=== PATIENT | female | born 1950 | race Caucasian/White ===

== ENCOUNTER → 2016-05-12 | Outpatient (CLI) | payer MEDICARE, OTHER | LOC: CLAB 13:51 | PROVIDERS: ATTEND Internal Medicine | DX: J47.9 Bronchiectasis, uncomplicated (principal) | CPT/HCPCS: 87015; 87070; 87077; 87116; 87186; 87205; 87206 ==

== ENCOUNTER → 2017-04-16 | Outpatient (CLI) | payer MEDICARE, OTHER ==
[~2017-04-16] MED LIST: ALEN1TAB48 PO; AMLO5TAB2 PO; ASPI81TA23 PO; BECL80AE3 INH; CALC1TAB87 PO; IPRA0.02 NEB; LEVO100T5 PO; LOSA50TA PO; METF500T PO; NITR1CAP37 PO; vitamin d2 PO
[2017-04-16 15:58] LABS: BACTERIA, URINE MOD /hpf; BILIRUBIN, URINE NEG (NEG); BLOOD, URINE TRACE (NEG); GLUCOSE,URINE NEG (NEG); HYALINE CAST, URINE 1 /lpf (RARE); KETONE, URINE NEG (NEG); NITRITE,URINE POS (NEG); URINE COLOR YELLOW (YELLW/STRAW); URINE LEUKOCYTE ESTERASE LARGE (NEG)
== END ==
LOC: CLAB 14:30
PROVIDERS: ATTEND Obstetrics & Gynecology Gynecology
DX: N39.0 Urinary tract infection, site not specified (principal); B96.4 Proteus (mirabilis) (morganii) as the cause of diseases classified elsewhere
CPT/HCPCS: 81001; 87077; 87086; 87186

== ENCOUNTER → 2017-08-14 | Outpatient (CLI) | payer MEDICARE, OTHER ==
[~2017-08-14] MED LIST changes: -NITR1CAP37 PO
== END ==
LOC: OLAB 10:37
PROVIDERS: ATTEND Internal Medicine
DX: J44.9 Chronic obstructive pulmonary disease, unspecified (principal); B96.5 Pseudomonas (aeruginosa) (mallei) (pseudomallei) as the cause of diseases classified elsewhere
CPT/HCPCS: 87015; 87070; 87077; 87116; 87186; 87205; 87206

== ENCOUNTER → 2017-08-19 | Outpatient (CLI) | payer MEDICARE, OTHER ==
--- NOTE | 2017-08-21 09:50 | RSPPFT ---
DATE OF PROCEDURE: 08/19/17 COMMENTS: VOLUMES DYNAMIC: FVC moderately reduced; FEV1 severely reduced. STATIC: FRC, RV and TLC normal. FLOWS: FEV1% moderately reduced; FEF 25-75 severely reduced. DIFFUSION: Mildly reduced. FLOW VOLUME LOOP: Pattern of variable intrathoracic airways obstruction. IMPRESSION: Moderately severe obstructive ventilatory defect with no significant hyperinflation and a mild reduction in diffusion. Airways resistance is significantly increased. There is significant improvement post-bronchodilator.
== END ==
LOC: HRSP 12:01
PROVIDERS: ATTEND Internal Medicine
DX: J44.9 Chronic obstructive pulmonary disease, unspecified (principal)
CPT/HCPCS: 94060; 94618; 94726; 94729

== ENCOUNTER 2018-03-08 18:35 | Inpatient (IN) ==
[2018-03-08] MEDS ORDERED: Acetaminophen 325 MG Tablet PO ONE (20:38)
[2018-03-08] MEDS ORDERED: Sodium Chlor 0.9% Inj 500 ML IV.SIG ONE (20:38)
[2018-03-08] MEDS ORDERED: Vancomycin Inj 1,000 MG in Sodium Chlor 0.9% Inj 250 ML IV.SIG ONE (20:38)
--- NOTE | 2018-03-08 20:48 | ED ---
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 She reports that she was referred to Dr. Jackson for evaluation when after being chronically placed on ciprofloxacin she continued to have exacerbations. She reports that a PICC line was placed to approximate 3 weeks ago and she has been on cefepime for the last 2 weeks. She reports that today she developed a fever at home with a T-max of 102.9. The patient reports that yesterday she did have increased shortness of breath when she went to congregation and was exposed to a cologne. She reports that today she does not have any increasing shortness of breath. She reports that she is on 2 L nasal cannula O2 as needed in the daytime and continuously at night. She denies having any nausea, vomiting, or diarrhea. She reports that her last bowel movement was yesterday. She reports that she has had some generalized abdominal discomfort, however she reports that she has been taking probiotics which have helped. The patient reports that her primary care physician is Dr. Borrero. On review of systems otherwise, the patient denies having any recent increased productivity to her cough, neck pain, chest pain, urinary symptoms, or neurologic symptoms. Related Data Home Medications Medication Instructions Recorded Confirmed alendronate [Fosamax] 70 mg PO QWEEK 02/19/18 03/08/18 amlodipine 5 mg PO DAILY 02/19/18 03/08/18 aspirin [Aspir-81] 81 mg PO DAILY 02/19/18 03/08/18 ciprofloxacin HCl [Cipro] 500 mg PO BID 02/19/18 03/08/18 gwrfexlcwyy-svrcsegxa-bppsrqsf 1 inh INHALATION DAILY 02/19/18 03/08/18 [Trelegy Ellipta] ipratropium-albuterol 3 ml INHALATION Q8H 02/19/18 03/08/18 ipratropium-albuterol [Combivent 1 puff INHALATION Q6H 02/19/18 03/08/18 Respimat] levothyroxine 100 mcg PO DAILY 02/19/18 03/08/18 losartan 50 mg PO DAILY 02/19/18 03/08/18 metformin 500 mg PO BID 02/19/18 03/08/18 cefepime 2 g IV Q12H 03/08/18 03/08/18 ergocalciferol (vitamin D2) 50,000 unit PO QWEEK 03/08/18 03/08/18 [Vitamin D2] Allergies Allergy/AdvReac Type Severity Reaction Status Date / Time No Known Allergies Allergy Verified 03/08/18 18:47 Review of Systems ROS: all other systems reviewed are negative [facility] Medical History Medical History Asthma (Acute) Bronchiectasis (Acute) Dizziness (Acute) History of blood product transfusion (Acute) Hx of osteopenia (Acute) Hypothyroidism (Acute) Surgical History Surgical History History of total left knee replacement (Acute) History of total right knee replacement (Acute) Hx of tubal ligation (Acute) Social History Social History Second Hand Smoke Exposure: No Smoking Status: Former smoker How Often Do You Have a Drink Containing Alcohol: Never Recent Travel in [facility] within the Last 8 Weeks: No Recent Out of Country Travel within the Last 8 Weeks: No Immunization History Tetanus Immunization: >5 Years Exam Const General: cooperative, no acute distress and well developed Nutritional Appearance: well nourished Orientation: alert, awake and oriented x3 HENMT Head: normocephalic and atraumatic Nose: no nasal discharge and no epistaxis Mouth: moist mucous membranes Throat: posterior oropharynx normal and uvula midline Eyes Sclera: normal sclerae Pupils: PERRL Neck Neck: no meningeal signs, trachea midline and no JVD Resp Effort & Inspection: no use of accessory muscles and other (The patient has an occasional productive sounding cough on examination.) Auscultation: no crackles, rhonchi (Patient has scattered rhonchi that clear with coughing.) and wheezes (Audible posteriorly in bilateral lung abreu.) Cardio Rate: regular rate Rhythm: regular rhythm Heart Sounds: no murmurs GI Inspection: non-distended Palpation: soft, no hepatosplenomegaly, no guarding, not rigid and nontender Auscultation: normal bowel sounds Back/Spine/Pelvis Back: no CVA tenderness Cervical Spine: No cervical spinal tenderness Thoracic/Lumbar Spine: No thoracic spinal tenderness and No lumbar spinal tenderness Skin General: dry skin (warm) Neuro General: alert, awake, oriented x3 and other (Grossly nonfocal.) Speech: speech normal Motor: no movement abnormalities noted Extrem General: normal to inspection (2+ pulses in all 4 extremities. The patient has a PICC line in place in the right upper extremity that appears to be in good repair with a clean, dry, and intact bandage in place.), no calf tenderness, no clubbing, no cyanosis and no edema Psych Mood: congruent mood Affect: normal affect Judgment: judgment good Course Initial Documented Vital Signs Temperature 100.3 F H 03/08/18 18:44 Pulse Rate 101 H 03/08/18 18:44 Respiratory Rate 20 03/08/18 18:44 Blood Pressure 146/68 H 03/08/18 18:44 Pulse Oximetry 96 03/08/18 18:44 Last Documented Vital Signs Temperature 100.3 F H 03/08/18 18:44 Pulse Rate 96 H 03/08/18 21:05 Respiratory Rate 16 03/08/18 20:32 Blood Pressure 194/85 H 03/08/18 20:32 Pulse Oximetry 96 03/08/18 21:05 Medical Decision Making MDM Narrative Medical decision making narrative: During the course of the patient's emergency department visit, the patient's history, examination, and differential diagnosis were reviewed with the patient. The patient was placed on a patrol man with oximetry and frequent blood pressure monitoring. The patient had IV access obtained and blood work sent for analysis. A diagnostic evaluation was started regarding the patient's febrile illness with chronic bronchiectasis and infection with Pseudomonas currently under treatment with a PICC line in place, on cefepime and ciprofloxacin 500 mg twice a day. Blood cultures x2 have been ordered, lactic acid has been sent for analysis and workup of possible sepsis. The patient was initially provided NS 500 mL bolus x1, DuoNeb x1, Tylenol 650 p.o. x1 for fever. Along with the antibiotic regimen that was previously started, vancomycin was added to the regimen due to concern for possible sepsis. The patient's laboratory studies are remarkable for a white count that is increased since last check up to 12, hemoglobin 11, platelets 114 with 75.2 neutrophils, 11.7 monocytes. PT PTT within normal limits, chemistry is remarkable for sodium 135, GFR 67, glucose 109, cardiac enzymes within normal limits, total protein 8.3, lipase within normal limits, lactic acid 1.2. The patient's chest x-ray revealed bronchiectasis and a left basilar airspace disease that is suspected by the radiologist. The patient had added to her current regimen of antibiotic, azithromycin, 500 mg IV. The patient will be admitted to the hospital for failed outpatient management, recurrent fevers and infiltrates on chest x-ray. A consultation with her infectious disease physician will be placed. The patient's case including history, pertinent physical examination findings, and laboratory studies were discussed with Dr. Tran. It was agreed that the patient would be admitted to the hospitalist service. The patient's results were discussed with the patient, including the plan of care. I explained that further testing and/ or monitoring is indicated based on the patient's history, examination, and/ or laboratory findings. Therefore, I recommended admission for additional evaluation. The patient expressed understanding and was agreeable with this plan. The patient was admitted to the hospital in guarded condition and sent to a bed under the care of the [facility] service. Medical Screen Exam Complete: Yes Emergency Medical Condition: Yes Differential Diagnosis Differential Diagnosis: Pneumonia, versus line related sepsis, versus pyelonephritis, versus C. difficile colitis Medical Records Medical records reviewed: Yes I reviewed the patient's medical records. Lab Data Lab results reviewed: Yes I reviewed the patient's lab results. Result diagrams: 03/08/18 20:45 03/08/18 20:45 Lab Results 03/08/18 03/08/18 03/08/18 Range/Units 20:45 20:45 20:45 WBC 12.0 H (4.0-11.0) th/mm3 RBC 3.63 L (4.00-5.30) mil/mm3 Hgb 11.0 L (11.6-15.3) gm/dL Hct 30.9 L (35.0-46.0) % MCV 85.1 (80.0-100.0) fL MCH 30.3 (27.0-34.0) pg MCHC 35.6 (32.0-36.0) % RDW 15.5 (11.6-17.2) % Plt Count 414 (150-450) th/mm3 MPV 7.9 (7.0-11.0) fL Neut % (Auto) 75.2 H (16.0-70.0) % Lymph % (Auto) 11.6 (9.0-44.0) % Dougherty % (Auto) 11.7 H (0.0-8.0) % Eos % (Auto) 0.5 (0.0-4.0) % Baso % (Auto) 1.0 (0.0-2.0) % Neut # (Auto) 9.0 H (1.8-7.7) th/mm3 Lymph # (Auto) 1.4 (1.0-4.8) th/mm3 Dougherty # (Auto) 1.4 H (0.0-0.9) th/mm3 Eos # (Auto) 0.1 (0.0-0.4) th/mm3 Baso # (Auto) 0.1 (0.0-0.2) th/mm3 WBC Differential . Differential Comment Auto diff final PT 10.8 (9.8-11.6) sec INR 1.1 Ratio APTT 29.4 (23.4-31.7) sec Sodium 135 L (136-145) meq/L Potassium 3.8 (3.5-5.1) meq/L Chloride 99 (98-107) meq/L Carbon Dioxide 27.0 (21.0-32.0) meq/L Anion Gap 9 (5-15) meq/L BUN 11 (7-18) mg/dL Creatinine 0.84 (0.50-1.00) mg/dL Estimated GFR 67 L (>89) mL/min Random Glucose 109 H (74-106) mg/dL Lactic Acid (0.4-2.0) mmol/L Calcium 8.9 (8.5-10.1) mg/dL Magnesium 2.0 (1.5-2.5) mg/dL Total Bilirubin 0.3 (0.2-1.0) mg/dL AST 28 (15-37) U/L ALT 30 (10-53) U/L Alkaline Phosphatase 81 (45-117) U/L Total Creatine Kinase 68 (26-192) U/L Troponin I Less than 0.02 L (0.02-0.05) ng/mL Total Protein 8.3 H (6.4-8.2) g/dL Albumin 3.6 (3.4-5.0) g/dL Lipase 144 (73-393) U/L 03/08/18 Range/Units 20:45 WBC (4.0-11.0) th/mm3 RBC (4.00-5.30) mil/mm3 Hgb (11.6-15.3) gm/dL Hct (35.0-46.0) % MCV (80.0-100.0) fL MCH (27.0-34.0) pg MCHC (32.0-36.0) % RDW (11.6-17.2) % Plt Count (150-450) th/mm3 MPV (7.0-11.0) fL Neut % (Auto) (16.0-70.0) % Lymph % (Auto) (9.0-44.0) % Dougherty % (Auto) (0.0-8.0) % Eos % (Auto) (0.0-4.0) % Baso % (Auto) (0.0-2.0) % Neut # (Auto) (1.8-7.7) th/mm3 Lymph # (Auto) (1.0-4.8) th/mm3 Dougherty # (Auto) (0.0-0.9) th/mm3 Eos # (Auto) (0.0-0.4) th/mm3 Baso # (Auto) (0.0-0.2) th/mm3 WBC Differential Differential Comment PT (9.8-11.6) sec INR Ratio APTT (23.4-31.7) sec Sodium (136-145) meq/L Potassium (3.5-5.1) meq/L Chloride (98-107) meq/L Carbon Dioxide (21.0-32.0) meq/L Anion Gap (5-15) meq/L BUN (7-18) mg/dL Creatinine (0.50-1.00) mg/dL Estimated GFR (>89) mL/min Random Glucose (74-106) mg/dL Lactic Acid 1.2 (0.4-2.0) mmol/L Calcium (8.5-10.1) mg/dL Magnesium (1.5-2.5) mg/dL Total Bilirubin (0.2-1.0) mg/dL AST (15-37) U/L ALT (10-53) U/L Alkaline Phosphatase (45-117) U/L Total Creatine Kinase (26-192) U/L Troponin I (0.02-0.05) ng/mL Total Protein (6.4-8.2) g/dL Albumin (3.4-5.0) g/dL Lipase (73-393) U/L Imaging Data Radiologist's impression: Chest X-Ray 03/08/18 20:37 CONCLUSION: Bronchiectasis and left basilar airspace disease suspected. ECG Data Attestation: I personally reviewed and interpreted this ECG as follows: Interpretation: The patient had an EKG done on arrival that shows a sinus rhythm with a sinus arrhythmia heart rate of 88, QRS duration is 95 ms, QTC [address] segment elevation. Discharge Plan Discharge Disposition Patient Disposition: 30 Still Patient Discharge Details Diagnosis: Febrile illness, Failure of outpatient treatment, Infiltrate of lung present on chest x-ray Physicians Team ED Provider: Camryn Ramírez Primary Care Provider: Gabriela Brown Rxs /Orders / Referrals /Forms Prescriptions: No Action cefepime 2 gram Recon Soln 2 g IV Q12H RF: 0 ergocalciferol (vitamin D2) [Vitamin D2] 50,000 unit Capsule 50,000 unit PO QWEEK RF: 0 losartan 50 mg Tablet 50 mg PO DAILY RF: 0 metformin 500 mg Tablet 500 mg PO BID RF: 0 ipratropium-albuterol 0.5 mg-3 mg(2.5 mg base)/3 mL Solution For Nebulization 3 ml INHALATION Q8H RF: 0 alendronate [Fosamax] 70 mg Tablet 70 mg PO QWEEK RF: 0 amlodipine 5 mg Tablet 5 mg PO DAILY RF: 0 ciprofloxacin HCl [Cipro] 500 mg Tablet 500 mg PO BID RF: 0 aspirin [Aspir-81] 81 mg Tablet,Delayed Release (Dr/Ec) 81 mg PO DAILY RF: 0 levothyroxine 100 mcg Capsule 100 mcg PO DAILY RF: 0 ipratropium-albuterol [Combivent Respimat] 20-100 mcg/actuation Mist 1 puff INHALATION Q6H RF: 0 [id number]-hfayphthn-wtostpbq [Trelegy Ellipta] 100-62.5-25 mcg Blister With Device 1 inh INHALATION DAILY RF: 0 Discharge Interventions Interventions: Vital Signs Last Done: 03/08/18 20:32 Status ED Status: With Doctor
[2018-03-08 21:12] LABS: Baso # (Auto) 0.1 th/mm3 (0.0-0.2); Eos # (Auto) 0.1 th/mm3 (0.0-0.4); Eos % (Auto) 0.5 % (0.0-4.0); Hematocrit 30.9 % (35.0-46.0); Lymph # (Auto) 1.4 th/mm3 (1.0-4.8); Lymph % (Auto) 11.6 % (9.0-44.0); Mean Corpuscular HGB Conc 35.6 % (32.0-36.0); Mean Corpuscular Hemoglobin 30.3 pg (27.0-34.0); Mean Corpuscular Volume 85.1 fL (80.0-100.0); Mean Platelet Volume 7.9 fL (7.0-11.0); Mono # (Auto) 1.4 th/mm3 (0.0-0.9); Mono % (Auto) 11.7 % (0.0-8.0); Neut % (Auto) 75.2 % (16.0-70.0); Platelet Count 414 th/mm3 (150-450); Red Blood Count 3.63 mil/mm3 (4.00-5.30); Red Cell Distribution Width 15.5 % (11.6-17.2)
--- NOTE | 2018-03-08 21:13 | XR ---
EXAM DATE: 03/08/2018 9:08 PM EST AGE/SEX: 67 years / Female INDICATIONS: Fever, cough, and congestion. CLINICAL DATA: This is the patient's initial encounter. Patient reports that signs and symptoms have been present for 3 weeks and indicates a pain score of 0/10. MEDICAL/SURGICAL HISTORY: . Asthma. Diabetes. Hypertension. Osteoporosis. Hypothyroidism. DVT. COPD. . Arthroscopy. Breast biopsy. COMPARISON: [facility], CT CHEST W/O CONTRAST, 08/17/2017. . FINDINGS: There are remote right-sided rib fractures present. Mild hyperinflation is noted. Cardiomegaly is denae ntified. The patient has a history of bronchiectasis in the lower lobes. There is atelectasis and per ibronchial thickening identified in the left lower lobe as before. There is minimal patchy left basil ar parenchymal infiltrates again noted. Osseous structures are intact. Right PICC line is present and the tip overlies the expected location of the SVC. EKG leads are noted. CONCLUSION: Bronchiectasis and left basilar airspace disease suspected. Electronically signed by: Aidan Edwards MD 03/08/2018 9:11 PM EST
[2018-03-08 21:20] LABS: Activated Partial Thrombo Time 29.4 sec (23.4-31.7); INR 1.1 Ratio; Prothrombin Time 10.8 sec (9.8-11.6)
[2018-03-08 21:27] LABS: Albumin 3.6 g/dL (3.4-5.0); Anion Gap 9 meq/L (5-15); Aspartate Aminotransferase 28 U/L (15-37); Blood Urea Nitrogen 11 mg/dL (7-18); Calcium 8.9 mg/dL (8.5-10.1); Chloride 99 meq/L (98-107); Glomerular Filtration Rate 67 mL/min (>89); Glucose,Random 109 mg/dL (74-106); Lipase 144 U/L (73-393); Potassium 3.8 meq/L (3.5-5.1); Sodium 135 meq/L (136-145)
[2018-03-08 21:28] LABS: Alanine Aminotransferase 30 U/L (10-53)
[2018-03-08 21:31] LABS: Alkaline Phosphatase 81 U/L (45-117); Total Protein 8.3 g/dL (6.4-8.2)
[2018-03-08 21:36] LABS: Creatine Kinase 68 U/L (26-192)
[2018-03-08] MEDS ORDERED: Azithromycin Inj 500 MG in Sodium Chlor 0.9% Inj 250 ML IV.SIG ONE (22:09)
[2018-03-08] MEDS ORDERED: Dextrose 50% in Water 50 ML Vial IV.PUSH PRN (23:20)
[2018-03-08] MEDS ORDERED: Bisacodyl 10 MG Supp RECTAL PRN (23:22)
[2018-03-08] MEDS ORDERED: Acetaminophen 325 MG Tablet PO PRN (23:22)
[2018-03-08] MEDS ORDERED: CEFEPIME 2 GM IV.SIG SCH (23:30)
[2018-03-08] MEDS ORDERED: Non-Formulary Drug (Ipratropium-Albuterol [Combivent Respimat] 1 PUFF) INHALATION SCH (23:30)
--- NOTE | 2018-03-08 23:35 | P.HP ---
History of Present Illness Service: [facility] Primary Care Physician: Gabriela Brown DO History of Present Illness: 67-year-old female with a past medical history significant for Pseudomonas, currently on cefepime and Cipro per infectious disease, hypertension, diabetes mellitus, COPD and hypothyroidism presents to the emergency department for the evaluation of a fever. The patient reports that earlier today she had an oral temperature of 102.9. She states that she has a chronic cough productive of sputum that has been improving as well as baseline shortness of breath that has also been improving. She had a PICC line placed 2 weeks ago at which time cefepime was initiated by her infectious disease physician, Dr. Jackson. The patient denies any chest pain. No abdominal pain. No nausea/vomiting/ diarrhea. No lateralizing signs/symptoms. Inpatient Certification: I certify that the inpatient services were ordered in accordance with Medicare regulations governing the order. This includes certification that hospital inpatient services are reasonable and necessary and in the case of services not specified as inpatient-only under 42 CFR 419.22(n), that they are appropriately provided as inpatient services in accordance to with the 2-midnight benchmark under 43 CFR 412.3(e) Review of Systems All other systems reviewed negative except as stated in HPI PMFSH - History History Provided By: Patient - Medical History Medical History: Medical History (Last Updated 03/08/18 @ 23:28 by Tamiko Tran MD) COPD (chronic obstructive pulmonary disease) Hypertension Pseudomonas aeruginosa infection Asthma Bronchiectasis History of blood product transfusion Hx of osteopenia Hypothyroidism - Surgical History Surgical History: Surgical History (Last Updated 03/08/18 @ 23:28 by Tamiko Tran MD) S/P PICC central line placement History of total left knee replacement History of total right knee replacement Hx of tubal ligation - Family History Family History: Family History (Last Updated 03/08/18 @ 23:28 by Tamiko Tran MD) Other Family history normal - Tobacco History Second Hand Smoke Exposure: No Smoking Status: Former smoker - Alcohol History How Often Do You Have a Drink Containing Alcohol: Never - Travel History Recent Travel in the [place] Within the Last 8 Weeks: No Recent Travel Out of the Country Within the Last 8 Weeks: No - Immunization History Tetanus Immunization: >5 Years Medications and Allergies Allergies Allergy/AdvReac Type Severity Reaction Status Date / Time No Known Allergies Allergy Verified 03/08/18 18:47 Home Medications Medication Instructions Recorded Confirmed Type alendronate [Fosamax] 70 mg PO QWEEK 02/19/18 03/08/18 History amlodipine 5 mg PO DAILY 02/19/18 03/08/18 History aspirin [Aspir-81] 81 mg PO DAILY 02/19/18 03/08/18 History ciprofloxacin HCl [Cipro] 500 mg PO BID 02/19/18 03/08/18 History zcjxtuyuifw-qhfahlnds-sevgradn 1 inh INHALATION DAILY 02/19/18 03/08/18 History [Trelegy Ellipta] ipratropium-albuterol 3 ml INHALATION Q8H 02/19/18 03/08/18 History ipratropium-albuterol [Combivent 1 puff INHALATION Q6H 02/19/18 03/08/18 History Respimat] levothyroxine 100 mcg PO DAILY 02/19/18 03/08/18 History losartan 50 mg PO DAILY 02/19/18 03/08/18 History metformin 500 mg PO BID 02/19/18 03/08/18 History cefepime 2 g IV Q12H 03/08/18 03/08/18 History ergocalciferol (vitamin D2) 50,000 unit PO QWEEK 03/08/18 03/08/18 History [Vitamin D2] Exam Vital signs: Vital Signs 03/08/18 18:44 03/08/18 20:32 03/08/18 20:50 Temperature 100.3 F H Pulse Rate 101 H 104 H 98 H Respiratory Rate 20 16 18 Blood Pressure 146/68 H 194/85 H Pulse Oximetry 96 96 03/08/18 21:05 Temperature Pulse Rate 96 H Respiratory Rate Blood Pressure Pulse Oximetry 96 Intake & Output 03/08/18 03/08/18 03/09/18 06:59 18:59 06:59 Intake Total 750 / 750 Balance 750 / 750 Weight 68.946 kg Intake: IV 750 / 750 NS Inj 500 ML @ Wide Open IV. 500 / 500 SIG BOLUS ONE Rx#:[id number] Vancomycin Inj 1,000 MG In NS 250 / 250 Inj 250 ML @ 250 mls/hr IV.SIG ONCE ONE Rx#:[id number] Narrative: Gen.: No acute distress Head: Normocephalic. Atraumatic. EENT: Pupils equal round and reactive to light. Nose without drainage. Airway intact. Throat without injection. Cardiovascular: Regular rate and rhythm. No murmurs, rubs or gallops. Respiratory: Bilateral wheezes and rhonchi Abdomen: Soft, nontender, nondistended. No peritoneal signs. Musculoskeletal: No gross deformities. No edema. Skin: No obvious rashes or erythema. Neuro: Sensory and motor grossly intact. Cranial nerves II through XII grossly intact. Results - Labs CBC & Chem 7: 03/08/18 20:45 03/08/18 20:45 Labs: Laboratory Results - last 24 hr 03/08/18 03/08/18 03/08/18 20:45 20:45 20:45 WBC 12.0 H RBC 3.63 L Hgb 11.0 L Hct 30.9 L MCV 85.1 MCH 30.3 MCHC 35.6 RDW 15.5 Plt Count 414 MPV 7.9 Neut % (Auto) 75.2 H Lymph % (Auto) 11.6 Miner % (Auto) 11.7 H Eos % (Auto) 0.5 Baso % (Auto) 1.0 Neut # (Auto) 9.0 H Lymph # (Auto) 1.4 Miner # (Auto) 1.4 H Eos # (Auto) 0.1 Baso # (Auto) 0.1 WBC Differential . Differential Comment Auto diff final PT 10.8 INR 1.1 APTT 29.4 Sodium 135 L Potassium 3.8 Chloride 99 Carbon Dioxide 27.0 Anion Gap 9 BUN 11 Creatinine 0.84 Estimated GFR 67 L Random Glucose 109 H Lactic Acid Calcium 8.9 Magnesium 2.0 Total Bilirubin 0.3 AST 28 ALT 30 Alkaline Phosphatase 81 Total Creatine Kinase 68 Troponin I Less than 0.02 L Total Protein 8.3 H Albumin 3.6 Lipase 144 03/08/18 20:45 WBC RBC Hgb Hct MCV MCH MCHC RDW Plt Count MPV Neut % (Auto) Lymph % (Auto) Miner % (Auto) Eos % (Auto) Baso % (Auto) Neut # (Auto) Lymph # (Auto) Miner # (Auto) Eos # (Auto) Baso # (Auto) WBC Differential Differential Comment PT INR APTT Sodium Potassium Chloride Carbon Dioxide Anion Gap BUN Creatinine Estimated GFR Random Glucose Lactic Acid 1.2 Calcium Magnesium Total Bilirubin AST ALT Alkaline Phosphatase Total Creatine Kinase Troponin I Total Protein Albumin Lipase - Imaging Impressions Chest X-Ray 03/08/18 20:37 CONCLUSION: Bronchiectasis and left basilar airspace disease suspected. Caprini VTE Risk Assessment Caprini VTE Risk Assessment: Moderate/High Risk (score >= 2) Caprini Risk Assessment Model: Point Value = 1 Point Value = 2 Point Value = 3 Point Value = 5 Age 41-60 Minor surgery BMI > 25 kg/m2 Swollen legs Varicose veins or History of unexplained or recurrent spontaneous Oral contraceptives or hormone replacement Sepsis (< 1 month) Serious lung disease, including pneumonia (< 1 month) Abnormal pulmonary function Acute myocardial infarction Congestive heart failure (< 1 month) History of inflammatory bowel disease Medical patient at bed rest Age 61-74 Arthroscopic surgery Major open surgery (> 45 min) Laparoscopic surgery (> 45 min) Malignancy Confined to bed (> 72 hours) Immobilizing plaster cast Central venous access Age >= 75 History of VTE Family history of VTE Factor V Leiden Prothrombin [id number] Lupus anticoagulant Anticardiolipin antibodies Elevated serum homocysteine Heparin-induced thrombocytopenia Other congenital or acquired thrombophilia Stroke (< 1 month) Elective arthroplasty Hip, pelvis, or leg fracture Acute spinal cord injury (< 1 month) Prophylaxis Regimen: Total Risk Factor Score Risk Level Prophylaxis Regimen 0-1 Low Early ambulation 2 Moderate Order ONE of the following: *Sequential Compression Device (SCD) *Heparin 5000 units SQ BID 3-4 Higher Order ONE of the following medications: *Heparin 5000 units SQ TID *Enoxaparin/Lovenox 40 mg SQ daily (WT < 150 kg, CrCl > 30 mL/min) *Enoxaparin/Lovenox 30 mg SQ daily (WT < 150 kg, CrCl > 10-29 mL/min) *Enoxaparin/Lovenox 30 mg SQ BID (WT < 150 kg, CrCl > 30 mL/min) AND/OR *Sequential Compression Device (SCD) 5 or more Highest Order ONE of the following medications: *Heparin 5000 units SQ TID (Preferred with Epidurals) *Enoxaparin/Lovenox 40 mg SQ daily (WT < 150 kg, CrCl > 30 mL/min) *Enoxaparin/Lovenox 30 mg SQ daily (WT < 150 kg, CrCl > 10-29 mL/min) *Enoxaparin/Lovenox 30 mg SQ BID (WT < 150 kg, CrCl > 30 mL/min) AND *Sequential Compression Device (SCD) Assessment and Plan - Plan Assessment/plan: 1. Pseudomonal infection/Fever Patient with temperature of 102.9 at home Treated by infectious disease with cefepime times 2 weeks and Cipro Continue cefepime/Cipro Blood cultures pending Infectious disease consulted, appreciate assistance 2. COPD Patient on 2 L nasal cannula at home, continue Continue home inhalers 3. Hypertension/hypothyroidism Continue home medication 4. Diabetes mellitus Holding home metformin Sliding scale insulin Monitor blood glucose FEN Diabetic diet Electrolytes: Monitor and replete as needed Heparin
[2018-03-09] MEDS: Insulin NovoLOG Aspart Correctional Sugar Inj SQ SCH ×5 (03:03→22:18)
[2018-03-09] MEDS: Levothyroxine 100 MCG Tablet PO SCH (05:56)
[2018-03-09] MEDS ORDERED: FLUTICASONE UMECLIDIN VILANTER INH SCH (09:00)
[2018-03-09 09:34] LABS: Baso # (Auto) 0.1 th/mm3 (0.0-0.2); Baso % (Auto) 1.3 % (0.0-2.0); Eos # (Auto) 0.2 th/mm3 (0.0-0.4); Eos % (Auto) 2.5 % (0.0-4.0); Hemoglobin 9.9 gm/dL (11.6-15.3); Lymph # (Auto) 1.2 th/mm3 (1.0-4.8); Mean Corpuscular Hemoglobin 28.3 pg (27.0-34.0); Mean Corpuscular Volume 85.7 fL (80.0-100.0); Mean Platelet Volume 7.5 fL (7.0-11.0); Mono # (Auto) 1.4 th/mm3 (0.0-0.9); Mono % (Auto) 14.5 % (0.0-8.0); Neut # (Auto) 6.8 th/mm3 (1.8-7.7); Neut % (Auto) 69.7 % (16.0-70.0); Platelet Count 380 th/mm3 (150-450); Red Cell Distribution Width 15.5 % (11.6-17.2); White Blood Count 9.7 th/mm3 (4.0-11.0)
[2018-03-09] MEDS: amLODIPine 5 MG Tablet PO SCH (09:48)
[2018-03-09] MEDS: Ciprofloxacin 500 MG Tablet PO SCH ×2 (09:49→22:17)
[2018-03-09] MEDS: Heparin - SQ 10,000 UNITS/ML Vial SQ SCH ×2 (09:50→22:18)
[2018-03-09 10:02] LABS: Anion Gap 8 meq/L (5-15); Blood Urea Nitrogen 9 mg/dL (7-18); Calcium 8.4 mg/dL (8.5-10.1); Carbon Dioxide 26.2 meq/L (21.0-32.0); Chloride 105 meq/L (98-107); Glomerular Filtration Rate Greater Than 89 mL/min (>89); Glucose,Random 96 mg/dL (74-106); Potassium 3.9 meq/L (3.5-5.1); Sodium 139 meq/L (136-145)
[2018-03-09] MEDS: Senna/Docusate Sodium 8.6/50 MG Tablet PO SCH ×2 (11:05→22:19)
--- NOTE | 2018-03-09 11:36 | P.PN ---
Subjective Interval history: Patient seen resting quietly in bed. is at bedside. Reports that she continues to be short of breath but that it is not any worse. No fever or chills. No nausea vomiting or diarrhea. Confirms chronic home O2. She tells me that she was doing okay on her antibiotic treatment but that she attempted to go to [employer] last week and had an immediate reaction to strong perfumes forcing her to go home. Denies any inflammation or drainage at PICC site. Does report that it is occasionally uncomfortable. Physical Exam Vital signs: Vital Signs 03/08/18 18:44 03/08/18 20:32 03/08/18 20:50 Temperature 100.3 F H Pulse Rate 101 H 104 H 98 H Respiratory Rate 20 16 18 Blood Pressure 146/68 H 194/85 H Pulse Oximetry 96 96 03/08/18 21:05 03/08/18 23:22 03/08/18 23:32 Temperature 98.5 F Pulse Rate 96 H 85 Respiratory Rate 18 Blood Pressure 128/69 Pulse Oximetry 96 96 03/09/18 01:04 03/09/18 03:54 03/09/18 04:00 Temperature 98.2 F 100.2 F H 98.3 F Pulse Rate 81 91 H 90 Respiratory Rate 19 17 19 Blood Pressure 133/64 127/61 129/62 Pulse Oximetry 96 94 L 97 03/09/18 08:00 03/09/18 08:04 Temperature 97.8 F Pulse Rate 81 82 Respiratory Rate 18 16 Blood Pressure 126/77 Pulse Oximetry 93 L Intake & Output 03/08/18 03/09/18 03/09/18 18:59 06:59 18:59 Intake Total 1100 / 1100 Balance 1100 / 1100 Weight 68.946 kg Intake: IV 1100 / 1100 Azithromycin Inj 500 MG In NS 250 / 250 Inj 250 ML @ 250 mls/hr IV.SIG ONCE ONE Rx#:[id number] Maxipime Inj 2,000 MG In NS Inj 100 / 100 100 ML @ 200 mls/hr IV.SIG ONCE ONE Rx#:[id number] NS Inj 500 ML @ Wide Open IV. 500 / 500 SIG BOLUS ONE Rx#:[id number] Vancomycin Inj 1,000 MG In NS 250 / 250 Inj 250 ML @ 250 mls/hr IV.SIG ONCE ONE Rx#:[id number] Narrative: GENERAL: Well-nourished, well-developed adult female in no obvious distress. SKIN: Warm and dry. PICC in the right upper arm. HEAD: Atraumatic. Normocephalic. CARDIOVASCULAR: Regular rate and rhythm. RESPIRATORY: Wearing nasal cannula. Rhonchi and wheeze. Breath sounds equal bilaterally. GASTROINTESTINAL: Abdomen soft, non-tender, non-distended. Positive bowel sounds. MUSCULOSKELETAL: Extremities without clubbing, cyanosis, or edema. No obvious deformities. NEUROLOGICAL: Awake and alert. No obvious cranial nerve deficits. Motor grossly within normal limits. Normal speech. Results - Labs CBC & Chem 7: 03/09/18 09:18 03/09/18 09:18 Laboratory Results - last 24 hr 03/08/18 03/08/18 03/08/18 20:45 20:45 20:45 WBC 12.0 H RBC 3.63 L Hgb 11.0 L Hct 30.9 L MCV 85.1 MCH 30.3 MCHC 35.6 RDW 15.5 Plt Count 414 MPV 7.9 Neut % (Auto) 75.2 H Lymph % (Auto) 11.6 [place] % (Auto) 11.7 H Eos % (Auto) 0.5 Baso % (Auto) 1.0 Neut # (Auto) 9.0 H Lymph # (Auto) 1.4 [place] # (Auto) 1.4 H Eos # (Auto) 0.1 Baso # (Auto) 0.1 WBC Differential . Differential Comment Auto diff final PT 10.8 INR 1.1 APTT 29.4 Sodium 135 L Potassium 3.8 Chloride 99 Carbon Dioxide 27.0 Anion Gap 9 BUN 11 Creatinine 0.84 Estimated GFR 67 L POC Glucose Random Glucose 109 H Lactic Acid Calcium 8.9 Magnesium 2.0 Total Bilirubin 0.3 AST 28 ALT 30 Alkaline Phosphatase 81 Total Creatine Kinase 68 Troponin I Less than 0.02 L Total Protein 8.3 H Albumin 3.6 Lipase 144 03/08/18 03/09/18 03/09/18 20:45 03:02 09:18 WBC 9.7 RBC 3.50 L Hgb 9.9 L Hct 30.0 L MCV 85.7 MCH 28.3 MCHC 33.0 RDW 15.5 Plt Count 380 MPV 7.5 Neut % (Auto) 69.7 Lymph % (Auto) 12.0 [place] % (Auto) 14.5 H Eos % (Auto) 2.5 Baso % (Auto) 1.3 Neut # (Auto) 6.8 Lymph # (Auto) 1.2 [place] # (Auto) 1.4 H Eos # (Auto) 0.2 Baso # (Auto) 0.1 WBC Differential . Differential Comment Auto diff final PT INR APTT Sodium Potassium Chloride Carbon Dioxide Anion Gap BUN Creatinine Estimated GFR POC Glucose 116 H Random Glucose Lactic Acid 1.2 Calcium Magnesium Total Bilirubin AST ALT Alkaline Phosphatase Total Creatine Kinase Troponin I Total Protein Albumin Lipase 03/09/18 09:18 WBC RBC Hgb Hct MCV MCH MCHC RDW Plt Count MPV Neut % (Auto) Lymph % (Auto) [place] % (Auto) Eos % (Auto) Baso % (Auto) Neut # (Auto) Lymph # (Auto) [place] # (Auto) Eos # (Auto) Baso # (Auto) WBC Differential Differential Comment PT INR APTT Sodium 139 Potassium 3.9 Chloride 105 Carbon Dioxide 26.2 Anion Gap 8 BUN 9 Creatinine 0.59 Estimated GFR Greater than 89 POC Glucose Random Glucose 96 Lactic Acid Calcium 8.4 L Magnesium Total Bilirubin AST ALT Alkaline Phosphatase Total Creatine Kinase Troponin I Total Protein Albumin Lipase Microbiology 03/08/18 22:45 Blood - Peripheral Aerobic Blood Culture - Preliminary No growth in 1 day 03/08/18 22:45 Blood - Peripheral Anaerobic Blood Culture - Preliminary No growth in 1 day 03/08/18 20:45 Blood - Peripheral Aerobic Blood Culture - Preliminary No growth in 1 day 03/08/18 20:45 Blood - Peripheral Anaerobic Blood Culture - Preliminary No growth in 1 day 03/08/18 20:40 Blood - Peripheral Aerobic Blood Culture - Preliminary No growth in 1 day 03/08/18 20:40 Blood - Peripheral Anaerobic Blood Culture - Preliminary No growth in 1 day 03/08/18 20:50 Nasal Wash Influenza Types A,B Antigen - Final Negative for FLU A and B antigen Infection due to influenza A or B cannot be ruled out since the antigen present in the sample may be below the detection limit of the test. - Imaging Impressions Chest X-Ray 03/08/18 20:37 CONCLUSION: Bronchiectasis and left basilar airspace disease suspected. Assessment and Plan - Assessment (1) Bronchiectasis Code(s): J47.9 - Bronchiectasis, uncomplicated Status: Acute (2) Asthma Code(s): J45.909 - Unspecified asthma, uncomplicated Status: Acute (3) Febrile illness Code(s): R50.9 - Fever, unspecified Status: Acute (4) Failure of outpatient treatment Code(s): Z78.9 - Other specified health status Status: Acute (5) Infiltrate of lung present on chest x-ray Code(s): R91.8 - Other nonspecific abnormal finding of lung field Status: Acute - Plan Patient is a 67 year old female with a past medical history of hypertension, DM, COPD and hypothyroidism as well as a 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 Pt reports this has been a problem for the last 2 years with recent exacerbation over the last few months. 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 She was referred to Dr. Jackson for evaluation when after being chronically placed on ciprofloxacin she continued to have exacerbations. PICC line was placed to approximate 3 weeks ago and she has been on cefepime for the last 2 weeks. 1. Pseudomonal infection/Fever Patient with temperature of 102.9 at home Treated by infectious disease with cefepime times 2 weeks and Cipro Continue cefepime/Cipro Blood cultures pending Infectious disease consulted, appreciate assistance 2. Asthma/COPD and bronchiectasis Patient on 2 L nasal cannula at home, continue Continue home inhalers Consult placed to pulmonology, appreciate assistance 3. Hypertension/hypothyroidism Continue home medication 4. Diabetes mellitus Holding home metformin Sliding scale insulin Monitor blood glucose DVT prophylaxis: Heparin Discharge planning: To be determined
--- NOTE | 2018-03-09 13:20 | ECG ---
Date Performed: 03/08/2018 Time Performed: 21:06:35 PTAGE: 67 years EKG: Sinus rhythm WITH SINUS ARRHYTHMIA NORMAL ECG Since the PREVIOUS TRACING , no significant change noted PREVIOUS TRACIN11/30/2000 11.25 DOCTOR: Josselyn Morris Interpretating Date/Time 03/09/2018 13:18:22
--- NOTE | 2018-03-09 15:06 | MB ---
cc: Tutu Mohamud MD DATE: 03/09/2018 REQUESTING PHYSICIAN: Dr. Tran REASON: Pseudomonas with fevers despite cefepime/Cipro. HISTORY OF PRESENT ILLNESS: This is a 67-year-old white female who has a history of COPD. The patient has been treated with antibiotics for pneumonia as an outpatient. She was receiving IV cefepime and Cipro given by outpatient infectious disease physician. The patient notes that she is due to continue antibiotics for another week and she was supposed to see the infectious disease physician in the office tomorrow. However, she developed fever to 102 at home on 03/08/2018 and presented to the emergency department for evaluation. Temperature in the emergency department was 100.3. The patient is followed by Dr. Yury Izquierdo for bronchiectasis. It is reported the patient stated that she went to [employer] and was exposed to cologne and had increased shortness of breath. She went home. She also stated that the right ear has a pressure sensation. Her white blood cell count was elevated at 12.0 yesterday and today it is 9.7. Blood cultures were taken and the results are pending. There is no growth in 1 day. Influenza test is negative. The heart rate on admission was 101. The patient has been getting antibiotics through a PICC line at the right upper extremity. She reports that the PICC line has been functioning well. PAST MEDICAL HISTORY: COPD, bronchiectasis, asthma, hypertension, hypothyroidism, osteopenia, Pseudomonas pulmonary infection, history of total left knee replacement, history of total right knee replacement, history of tubal ligation. ALLERGIES: NO KNOWN DRUG ALLERGIES. MEDICATIONS: 1. Synthroid. 2. Insulin. 3. Ciprofloxacin. 4. Cefepime. 5. Ecotrin. 6. Norvasc. 7. Fluticasone. 8. Cozaar. SOCIAL HISTORY: No tobacco. The patient never smoked. No alcohol. No illicit drugs. FAMILY HISTORY: Noncontributory. REVIEW OF SYSTEMS: All systems have been reviewed and are negative, except for features as mentioned in history of present illness. PHYSICAL EXAMINATION: GENERAL: She is a frail-appearing female, who is in no acute distress. VITAL SIGNS: Temperature 98.2, BP 119/72, respirations 18, heart rate 75. HEENT: The head is atraumatic. Extraocular movements grossly intact. Pupils reactive to light. No icterus. Oropharynx mucosa moist. No visible lesions. NECK: Supple. No adenopathy. No swelling. LUNGS: Wheezing at both bases. HEART: Regular S1, S2. No audible murmur. ABDOMEN: Bowel sounds present, flat, soft, nontender. RECTAL: Not performed. EXTREMITIES: No clubbing, cyanosis or edema. The right upper extremity has a PICC line, which appears intact. SKIN: No diffuse rash. NEUROLOGIC: No gross focal finding. PSYCHIATRIC: The patient is calm and cooperative. LABORATORY DATA: WBC 9.7, platelets 380 with 69% neutrophils, 12% lymphocytes, 14% monocytes, hemoglobin 9.9. Creatinine 0.59, BUN 9. Estimated GFR greater than 89. Liver function tests normal. Chest x-ray shows bronchiectasis and left basilar airspace disease. IMPRESSION: 1. Fever in a patient who presented with tachycardia and elevated white blood cell count. Currently, being treated for pneumonia due to Pseudomonas. History of bronchiectasis. 2. Rule out sepsis. Currently, I see no clear source of sepsis in this patient; however, blood cultures are pending. RECOMMENDATIONS: 1. Continue cefepime. 2. Continue ciprofloxacin. 3. Attempt to get a sputum sample. A specimen cup will be given to the patient to collect a sample if she coughs up any sputum of significance. 4. Obtain urinalysis and culture if indicated. 5. Follow the clinical status and blood cultures. Thank you for this consultation. MD GRANT Polo/norma , 02:42 PM , 02:55 PM
[2018-03-09 16:36] LABS: Bilirubin,Urine Negative (Negative); Clarity,Urine Clear (Clear); Color,Urine Straw (Yellw/Straw); Glucose,Urine (UA) Negative (Negative); Leukocyte Esterase,Urine Negative (Negative); Nitrite,Urine Negative (Negative); Specific Gravity,Urine 1.005 (1.002-1.035)
--- NOTE | 2018-03-09 19:32 | MB ---
cc: Merritt Salcido MD, R Steven MD DATE: 03/09/2018 REQUESTING PHYSICIAN: Dr. Tamiko Hamilton REASON FOR CONSULTATION: Bronchiectasis and pseudomonas infection. HISTORY OF PRESENT ILLNESS: Ms. Hernandez is a 67-year-old pleasant female with history of bronchiectasis. The patient follows with Dr. Yury Izquierdo. She was recently found to have pseudomonas infection on cultures on the sputum. She was treated with outpatient antibiotic, did not get well, and she was sent to Dr. Jackson. She had a PICC line placed and was getting IV antibiotic. She started having fever, has cough with small amount of sputum production. No chest pain. No nausea or vomiting. Because of these symptoms, she presented to the emergency room. She had a workup done. Her chest x-ray shows she has bronchiectatic changes and left basilar airspace disease is suspected. Her CBC showed WBC count 9.7, hemoglobin 9.9, hematocrit 30, MCV 85, platelet count 380. Sodium 139, potassium 3.9, chloride 105, CO2 of 26, BUN 9, creatinine 0.59, blood culture is negative. Nasal wash is negative for influenza. PAST MEDICAL HISTORY: Significant for history of bronchiectasis, history of knee replacement, history of DVT after the knee surgery, hypothyroidism, hypertension, history of tubal ligation. MEDICATIONS: She is currently taking Tylenol, nebulizer treatment, DuoNeb, Norvasc 5 mg a day, Ecotrin 81 mg a day, cefepime 2 g every 12 hours, ciprofloxacin 500 mg twice a day, heparin 5000 q. 12 hours, levothyroxine 100 mcg a day, Cozaar 50 mg a day, Trelegy Ellipta once a day. ALLERGIES: NO KNOWN DRUG ALLERGIES. SOCIAL HISTORY: She is . 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 She has no history of smoking. FAMILY HISTORY: She has 3 children. REVIEW OF SYSTEMS: She has lost 50 pounds of weight lately on her own because she will cut the carb intake because she was told she is prediabetic. She has gained 10 pounds weight back. No history of any seizure, stroke, or history of malignancy. PHYSICAL EXAMINATION: GENERAL: Pleasant elderly female, not in any acute distress. VITAL SIGNS: Blood pressure 128/81, heart rate 85, respirations 16, temperature 98.5. HEENT: Pupils are equal and reactive to light. She has bilateral cataracts . Oral mucosa and nasal mucosa normal. NECK: Supple. JVD not raised. CHEST: She has bilateral harsh breath sounds with few rhonchi. HEART: S1, S2 normal. ABDOMEN: Benign. EXTREMITIES: No edema. IMPRESSION: 1. Pseudomonas infection. 2. Bronchiectasis. 3. Chronic obstructive pulmonary disease. 4. Arthritis. 5. Hypothyroidism. PLAN: I discussed with the patient. She will continue antibiotics, cefepime and ciprofloxacin, pending blood culture results. Continue aerosol treatments. Continue heparin for DVT prophylaxis. Further treatment pending the course in the hospital. Thank you, Dr. Tamiko Hamilton, for this consult. MD SUKHJINDER Daniels/noe/veena , 06:31 PM , 06:40 PM NAY
[2018-03-10] MEDS: Insulin NovoLOG Aspart Correctional Sugar Inj SQ SCH ×2 (04:14→09:02)
[2018-03-10] MEDS: Levothyroxine 100 MCG Tablet PO SCH (06:23)
[2018-03-10 08:32] VITALS: BP 117/67; PULSE 89; RESP 18; TEMP 98.2; O2SAT 93
[2018-03-10] MEDS: Heparin - SQ 10,000 UNITS/ML Vial SQ SCH (09:08)
[2018-03-10] MEDS: Senna/Docusate Sodium 8.6/50 MG Tablet PO SCH (09:08)
[2018-03-10] MEDS: amLODIPine 5 MG Tablet PO SCH (09:09)
[2018-03-10] MEDS: Ciprofloxacin 500 MG Tablet PO SCH (09:09)
--- NOTE | 2018-03-10 10:13 | P.PN ---
Subjective Interval history: Patient seen sitting up on bedside eating breakfast. Her is present. She tells me that her breathing is back to her baseline. No fevers or chills. No nausea vomiting or diarrhea. Physical Exam Vital signs: Vital Signs 03/09/18 12:00 03/09/18 16:00 03/09/18 16:03 Temperature 98.2 F 98.5 F Pulse Rate 75 85 82 Respiratory Rate 18 16 22 Blood Pressure 119/72 128/81 Pulse Oximetry 93 L 93 L 03/09/18 20:00 03/09/18 20:30 03/10/18 00:00 Temperature 97.6 F 98.2 F Pulse Rate 85 82 80 Respiratory Rate 16 20 16 Blood Pressure 127/64 112/58 L Pulse Oximetry 98 95 03/10/18 04:00 03/10/18 04:25 03/10/18 07:43 Temperature 99.5 F Pulse Rate 80 81 80 Respiratory Rate 16 17 20 Blood Pressure 134/61 Pulse Oximetry 97 95 03/10/18 08:30 Temperature 98.2 F Pulse Rate 89 Respiratory Rate 18 Blood Pressure 117/67 Pulse Oximetry 93 L Intake & Output 03/09/18 03/10/18 03/10/18 18:59 06:59 18:59 Intake Total 200 / 200 Balance 200 / 200 Intake: IV 200 / 200 Maxipime Inj 2,000 MG In NS Inj 200 / 200 100 ML @ 200 mls/hr IV.SIG Q12H [facility] Rx#:[id number] Narrative: GENERAL: Well-nourished, well-developed adult female in no obvious distress. SKIN: Warm and dry. PICC in the right upper arm. HEAD: Atraumatic. Normocephalic. CARDIOVASCULAR: Regular rate and rhythm. RESPIRATORY: Wearing nasal cannula. Rhonchi. Breath sounds equal bilaterally. GASTROINTESTINAL: Abdomen soft, non-tender, non-distended. Positive bowel sounds. MUSCULOSKELETAL: Extremities without clubbing, cyanosis, or edema. No obvious deformities. NEUROLOGICAL: Awake and alert. No obvious cranial nerve deficits. Motor grossly within normal limits. Normal speech. Results - Labs CBC & Chem 7: 03/09/18 09:18 03/09/18 09:18 Laboratory Results - last 24 hr 03/09/18 03/09/18 03/09/18 12:40 16:10 17:22 POC Glucose 95 103 Urine Color Straw Urine Clarity Clear Urine pH 7.0 Ur Specific Arnold 1.005 Urine Protein Negative Urine Glucose (UA) Negative Urine Ketones Negative Urine Occult Blood Small H Urine Nitrate Negative Urine Bilirubin Negative Urine Urobilinogen Less than 2 Ur Leukocyte Esterase Negative Urine RBC 1 Urine WBC 1 Micro UA Comment Culture not ind Ur Microscopic Review Not Reportable Urine Culture Comments Culture not ind 03/09/18 03/10/18 03/10/18 22:16 04:11 08:45 POC Glucose 102 103 123 H Urine Color Urine Clarity Urine pH Ur Specific Arnold Urine Protein Urine Glucose (UA) Urine Ketones Urine Occult Blood Urine Nitrate Urine Bilirubin Urine Urobilinogen Ur Leukocyte Esterase Urine RBC Urine WBC Micro UA Comment Ur Microscopic Review Urine Culture Comments Microbiology 03/09/18 18:30 Sputum - Expectorated Sputum Gram Stain - Final 03/08/18 22:45 Blood - Peripheral Aerobic Blood Culture - Preliminary No growth in 1 day 03/08/18 22:45 Blood - Peripheral Anaerobic Blood Culture - Preliminary No growth in 1 day 03/08/18 20:45 Blood - Peripheral Aerobic Blood Culture - Preliminary No growth in 1 day 03/08/18 20:45 Blood - Peripheral Anaerobic Blood Culture - Preliminary No growth in 1 day 03/08/18 20:40 Blood - Peripheral Aerobic Blood Culture - Preliminary No growth in 1 day 03/08/18 20:40 Blood - Peripheral Anaerobic Blood Culture - Preliminary No growth in 1 day Assessment and Plan - Assessment (1) Bronchiectasis Code(s): J47.9 - Bronchiectasis, uncomplicated Status: Chronic (2) Asthma Code(s): J45.909 - Unspecified asthma, uncomplicated Status: Chronic (3) Febrile illness Code(s): R50.9 - Fever, unspecified Status: Resolved (4) Failure of outpatient treatment Code(s): Z78.9 - Other specified health status Status: Resolved (5) Infiltrate of lung present on chest x-ray Code(s): R91.8 - Other nonspecific abnormal finding of lung field Status: Ruled-out - Plan Patient is a 67 year old female with a past medical history of hypertension, DM, COPD and hypothyroidism as well as a 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 Pt reports this has been a problem for the last 2 years with recent exacerbation over the last few months. 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 Arden Izquierdo. She was referred to Dr. Jackson for evaluation when after being chronically placed on ciprofloxacin she continued to have exacerbations. PICC line was placed to approximate 3 weeks ago and she has been on cefepime for the last 2 weeks. 1. Pseudomonal infection/Fever Patient with temperature of 102.9 at home; now afebrile Treated by infectious disease with cefepime times 2 weeks and Cipro Continue cefepime/Cipro -no change indicated per ID at this time. No growth on cultures to date. Infectious disease consulted, appreciate assistance 2. Asthma/COPD and bronchiectasis -chronic. Patient appears to have returned to baseline. Patient on 2 L nasal cannula at home, continue Continue home inhalers Consult placed to pulmonology, appreciate assistance 3. Hypertension/hypothyroidism -chronic, stable Continue home medication 4. Diabetes mellitus -chronic, stable Holding home metformin Sliding scale insulin Monitor blood glucose DVT prophylaxis: Heparin Discharge planning: Home today if cultures negative.
--- NOTE | 2018-03-10 10:21 | P.DS ---
Date of admission: 03/09/18 12:55 Primary care physician: Gabriela Brown DO Attending physician on discharge: Pepe Mcbride Anticipated date of discharge: 03/10/18 Brief History from admission: 67-year-old female with a past medical history significant for Pseudomonas, currently on cefepime and Cipro per infectious disease, hypertension, diabetes mellitus, COPD and hypothyroidism presents to the emergency department for the evaluation of a fever. The patient reports that earlier today she had an oral temperature of 102.9. She states that she has a chronic cough productive of sputum that has been improving as well as baseline shortness of breath that has also been improving. She had a PICC line placed 2 weeks ago at which time cefepime was initiated by her infectious disease physician, Dr. Jackson. The patient denies any chest pain. No abdominal pain. No nausea/vomiting/ diarrhea. No lateralizing signs/symptoms. 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 Pt reports this has been a problem for the last 2 years with recent exacerbation over the last few months. 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 She was referred to Dr. Jackson for evaluation when after being chronically placed on ciprofloxacin she continued to have exacerbations. PICC line was placed to approximate 3 weeks ago and she has been on cefepime/cipro for the last 2 weeks. 1. Pseudomonal infection/Fever - chronic infection. Pt has medication at home to continue treatment - managed by Dr. Jackson. Patient with temperature of 102.9 at home; now afebrile Treated by infectious disease with cefepime times 2 weeks and Cipro Continue cefepime/Cipro -no change indicated per ID at this time. No growth on cultures to date. 2. Asthma/COPD and bronchiectasis -chronic. Patient appears to have returned to baseline. Patient on 2 L nasal cannula at home, continue Continue home inhalers Consult placed to pulmonology, appreciate assistance -no recommended changes to current treatment per pulmonology note. 3. Hypertension/hypothyroidism -chronic, stable Continue home medication 4. Diabetes mellitus -chronic, stable Holding home metformin Sliding scale insulin Monitor blood glucose DVT prophylaxis: Heparin - Time Spent with Patient Total time spent providing and/or coordinating discharge services: Less than 30 minutes Exam Vital signs: Vital Signs 03/09/18 12:00 03/09/18 16:00 03/09/18 16:03 Temperature 98.2 F 98.5 F Pulse Rate 75 85 82 Respiratory Rate 18 16 22 Blood Pressure 119/72 128/81 Pulse Oximetry 93 L 93 L 03/09/18 20:00 03/09/18 20:30 03/10/18 00:00 Temperature 97.6 F 98.2 F Pulse Rate 85 82 80 Respiratory Rate 16 20 16 Blood Pressure 127/64 112/58 L Pulse Oximetry 98 95 03/10/18 04:00 03/10/18 04:25 03/10/18 07:43 Temperature 99.5 F Pulse Rate 80 81 80 Respiratory Rate 16 17 20 Blood Pressure 134/61 Pulse Oximetry 97 95 03/10/18 08:30 Temperature 98.2 F Pulse Rate 89 Respiratory Rate 18 Blood Pressure 117/67 Pulse Oximetry 93 L Intake & Output 03/09/18 03/10/18 03/10/18 18:59 06:59 18:59 Intake Total 200 / 200 Balance 200 / 200 Intake: IV 200 / 200 Maxipime Inj 2,000 MG In NS Inj 200 / 200 100 ML @ 200 mls/hr IV.SIG Q12H [facility] Rx#:[id number] Narrative: GENERAL: Well-nourished, well-developed adult female in no obvious distress. SKIN: Warm and dry. PICC in the right upper arm. HEAD: Atraumatic. Normocephalic. CARDIOVASCULAR: Regular rate and rhythm. RESPIRATORY: Wearing nasal cannula. Rhonchi. Breath sounds equal bilaterally. GASTROINTESTINAL: Abdomen soft, non-tender, non-distended. Positive bowel sounds. MUSCULOSKELETAL: Extremities without clubbing, cyanosis, or edema. No obvious deformities. NEUROLOGICAL: Awake and alert. No obvious cranial nerve deficits. Motor grossly within normal limits. Normal speech. Results Procedures completed during hospitalization: none Labs on day of discharge: Labs from last 24 hours 03/10/18 03/10/18 03/09/18 08:45 04:11 22:16 POC Glucose 123 H 103 102 Urine Color Urine Clarity Urine pH Ur Specific [place] Urine Protein Urine Glucose (UA) Urine Ketones Urine Occult Blood Urine Nitrate Urine Bilirubin Urine Urobilinogen Ur Leukocyte Esterase Urine RBC Urine WBC Micro UA Comment Ur Microscopic Review Urine Culture Comments 03/09/18 03/09/18 03/09/18 17:22 16:10 12:40 POC Glucose 103 95 Urine Color Straw Urine Clarity Clear Urine pH 7.0 Ur Specific [place] 1.005 Urine Protein Negative Urine Glucose (UA) Negative Urine Ketones Negative Urine Occult Blood Small H Urine Nitrate Negative Urine Bilirubin Negative Urine Urobilinogen Less than 2 Ur Leukocyte Esterase Negative Urine RBC 1 Urine WBC 1 Micro UA Comment Culture not ind Ur Microscopic Review Not Reportable Urine Culture Comments Culture not ind Preliminary micro results at discharge 03/08/18 22:45 Aerobic Blood Culture - Preliminary Blood - Peripheral No growth in 1 day Anaerobic Blood Culture - Preliminary No growth in 1 day 03/08/18 20:45 Aerobic Blood Culture - Preliminary Blood - Peripheral No growth in 1 day Anaerobic Blood Culture - Preliminary No growth in 1 day 03/08/18 20:40 Aerobic Blood Culture - Preliminary Blood - Peripheral No growth in 1 day Anaerobic Blood Culture - Preliminary No growth in 1 day - Impressions ITS Impressions Chest X-Ray 03/08/18 20:37 CONCLUSION: Bronchiectasis and left basilar airspace disease suspected. Discharge Plan - Discharge Disposition Patient Disposition: 01 Discharge Home - Discharge Condition Condition: Stable - Discharge Order Discharge Orders: Discharge Order (Routine); Ordered 03/10/18 Ordered By: Minal Aburto - Physicians Team Primary Care Provider: Gabriela Brown Attending Provider: Pepe Mcbride Other Providers: Tutu Mohamud MD ; Merritt Salcido MD
== END 2018-03-10 11:14 | disposition home or self-care (01) ==
LOC: NEPC 18:35 → NEDA 22:35 → INTOOBSV 22:35 → NEPHCDU 03-09
PROVIDERS: ADMIT Hospitalist; ATTEND Hospitalist

== ENCOUNTER 2018-03-12 20:32 | Inpatient (IN) ==
[2018-03-12] MEDS ORDERED: Sod Chloride 0.9% Inj 1,000 ML IV.SIG ONE (21:28)
--- NOTE | 2018-03-12 21:49 | XR ---
EXAM DATE: 03/12/2018 9:44 PM EST AGE/SEX: 67 years / Female INDICATIONS: Fever, chest congestion CLINICAL DATA: This is the patient's initial encounter. Patient reports that signs and symptoms have been present for 1 day and indicates a pain score of 5/10. MEDICAL/SURGICAL HISTORY: . Asthma. Diabetes. Hypertension. Osteoporosis. Hypothyroidism. DVT. COPD. . Breast biopsy COMPARISON: [facility], CHEST 1V SINGLE AP, 03/08/2018. . FINDINGS: Stable right-sided PICC line. Mild diffuse interstitial prominence with minimal patchy airspace disea se at the left lung base. Cardiomediastinal contours are within normal limits. Healed right-sided rib fractures. Remainder of the exam is unchanged. CONCLUSION: 1. Chronic interstitial prominence with stable left basilar patchy airspace disease. Electronically signed by: Gerardo Ordoñez MD 03/12/2018 9:48 PM EST
--- NOTE | 2018-03-12 22:05 | ED ---
HPI General Chief Complaint: Fever Stated Complaint: fever Time Seen by Provider: 03/12/18 21:12 Source: patient Mode of arrival: ambulatory Limitations: no limitations History of Present Illness HPI Narrative: 67 yo F c/o fever for 1 day. + hx bronchiectasis with reported pseudomonal infection w picc line with cefepime and cipro. pt reports compliance with abx. muscle aches and pains reported. generalized weakness reported. Related Data Home Medications Medication Instructions Recorded Confirmed alendronate [Fosamax] 70 mg PO QWEEK 02/19/18 03/12/18 amlodipine 5 mg PO DAILY 02/19/18 03/12/18 aspirin [Aspir-81] 81 mg PO DAILY 02/19/18 03/12/18 ciprofloxacin HCl [Cipro] 500 mg PO BID 02/19/18 03/12/18 jagwijakdvf-ktuiluysr-izntqvuk 1 inh INHALATION DAILY 02/19/18 03/12/18 [Trelegy Ellipta] ipratropium-albuterol 3 ml INHALATION Q8H 02/19/18 03/12/18 ipratropium-albuterol [Combivent 1 puff INHALATION Q6H 02/19/18 03/12/18 Respimat] levothyroxine 100 mcg PO DAILY 02/19/18 03/12/18 losartan 50 mg PO DAILY 02/19/18 03/12/18 metformin 500 mg PO BID 02/19/18 03/12/18 cefepime 2 g IV Q12H 03/08/18 03/12/18 ergocalciferol (vitamin D2) 50,000 unit PO QWEEK 03/08/18 03/12/18 [Vitamin D2] Allergies Allergy/AdvReac Type Severity Reaction Status Date / Time No Known Allergies Allergy Verified 03/12/18 21:02 [facility] Medical History Medical History Cataract (Acute) Asthma (Acute) Bronchiectasis (Acute) COPD (chronic obstructive pulmonary disease) (Acute) History of blood product transfusion (Acute) Hx of osteopenia (Acute) Hypertension (Acute) Hypothyroidism (Acute) Pseudomonas aeruginosa infection (Acute) Surgical History Surgical History History of total left knee replacement (Acute) History of total right knee replacement (Acute) Hx of tubal ligation (Acute) S/P PICC central line placement (Acute) Family History Family History Other Family history normal Social History Social History Substance History: No History of Abuse Second Hand Smoke Exposure: Yes Smoking Status: Never smoker How Often Do You Have a Drink Containing Alcohol: Never Recent Travel in [facility] within the Last 8 Weeks: No Recent Out of Country Travel within the Last 8 Weeks: No Immunization History Tetanus Immunization: <5 Years Course Initial Documented Vital Signs Temperature 99.1 F 03/12/18 21:02 Pulse Rate 99 H 03/12/18 21:02 Respiratory Rate 20 03/12/18 21:02 Blood Pressure 120/58 L 03/12/18 21:02 Pulse Oximetry 95 03/12/18 21:02 Last Documented Vital Signs Temperature 99.1 F 03/12/18 21:02 Pulse Rate 93 H 03/12/18 21:18 Respiratory Rate 18 03/12/18 21:18 Blood Pressure 117/58 L 03/12/18 21:18 Pulse Oximetry 100 03/12/18 21:18 Medical Decision Making MDM Narrative Medical decision making narrative: Blood culture with pending fungal isolates Bandemia 17% Admission for ID evaluation, IV abx Diflucan PO 150mg d/w Dr Tran Medical Screen Exam Complete: Yes Emergency Medical Condition: Yes Lab Data Lab results reviewed: Yes I reviewed the patient's lab results. Result diagrams: 03/12/18 21:41 03/12/18 21:41 Lab Results 03/12/18 03/12/18 03/12/18 Range/Units 21:41 21:41 21:41 WBC 4.4 (4.0-11.0) th/mm3 RBC 3.40 L (4.00-5.30) mil/mm3 Hgb 9.6 L (11.6-15.3) gm/dL Hct 29.2 L (35.0-46.0) % MCV 85.9 (80.0-100.0) fL MCH 28.3 (27.0-34.0) pg MCHC 32.9 (32.0-36.0) % RDW 15.1 (11.6-17.2) % Plt Count 367 (150-450) th/mm3 MPV 7.4 (7.0-11.0) fL Prelim Diff (Auto) Slide review pending WBC Differential Manual diff final Seg Neuts % (Manual) 45 (16-70) % Band Neuts % (Manual) 17 H (0-6) % Lymphocytes % (Manual) 31 (9-44) % Monocytes % (Manual) 5 (0-8) % Eosinophils % (Manual) 2 (0-4) % Abs Neuts (Manual) 2.7 (1.8-7.7) th/mm3 Differential Comment . Platelet Estimate Normal (Normal) Platelet Morphology Normal (Normal) Ovalocytes 1+ H (None) Sodium 131 L (136-145) meq/L Potassium 4.1 (3.5-5.1) meq/L Chloride 99 (98-107) meq/L Carbon Dioxide 26.0 (21.0-32.0) meq/L Anion Gap 6 (5-15) meq/L BUN 11 (7-18) mg/dL Creatinine 0.77 (0.50-1.00) mg/dL Estimated GFR 74 L (>89) mL/min Random Glucose 114 H (74-106) mg/dL Lactic Acid 0.9 (0.4-2.0) mmol/L Calcium 8.1 L (8.5-10.1) mg/dL Total Bilirubin 0.3 (0.2-1.0) mg/dL AST 51 H (15-37) U/L ALT 54 H (10-53) U/L Alkaline Phosphatase 93 (45-117) U/L Troponin I Less than 0.02 L (0.02-0.05) ng/mL Total Protein 7.2 D (6.4-8.2) g/dL Albumin 2.8 L (3.4-5.0) g/dL Imaging Data Attestation: I personally reviewed and interpreted this imaging study as follows : Radiologist's impression: Chest X-Ray 03/12/18 21:28 CONCLUSION: 1. Chronic interstitial prominence with stable left basilar patchy airspace disease. Discharge Plan Physicians Team ED Provider: Carlton Mendez Primary Care Provider: Primary Care PhysiciSarah Rxs /Orders / Referrals /Forms Prescriptions: No Action cefepime 2 gram Recon Soln 2 g IV Q12H RF: 0 ergocalciferol (vitamin D2) [Vitamin D2] 50,000 unit Capsule 50,000 unit PO QWEEK RF: 0 losartan 50 mg Tablet 50 mg PO DAILY RF: 0 metformin 500 mg Tablet 500 mg PO BID RF: 0 ipratropium-albuterol 0.5 mg-3 mg(2.5 mg base)/3 mL Solution For Nebulization 3 ml INHALATION Q8H RF: 0 alendronate [Fosamax] 70 mg Tablet 70 mg PO QWEEK RF: 0 amlodipine 5 mg Tablet 5 mg PO DAILY RF: 0 ciprofloxacin HCl [Cipro] 500 mg Tablet 500 mg PO BID RF: 0 aspirin [Aspir-81] 81 mg Tablet,Delayed Release (Dr/Ec) 81 mg PO DAILY RF: 0 levothyroxine 100 mcg Capsule 100 mcg PO DAILY RF: 0 ipratropium-albuterol [Combivent Respimat] 20-100 mcg/actuation Mist 1 puff INHALATION Q6H RF: 0 orfjjldebeh-sgrlvvyae-kkwepwjf [Trelegy Ellipta] 100-62.5-25 mcg Blister With Device 1 inh INHALATION DAILY RF: 0 Discharge Interventions Interventions: Vital Signs Last Done: 03/12/18 21:18 Status ED Status: In Room
[2018-03-12 22:13] LABS: Hematocrit 29.2 % (35.0-46.0); Hemoglobin 9.6 gm/dL (11.6-15.3); Mean Corpuscular HGB Conc 32.9 % (32.0-36.0); Mean Corpuscular Hemoglobin 28.3 pg (27.0-34.0); Mean Corpuscular Volume 85.9 fL (80.0-100.0); Mean Platelet Volume 7.4 fL (7.0-11.0); Platelet Count 367 th/mm3 (150-450); Red Cell Distribution Width 15.1 % (11.6-17.2); White Blood Count 4.4 th/mm3 (4.0-11.0)
[2018-03-12 22:22] LABS: Albumin 2.8 g/dL (3.4-5.0); Anion Gap 6 meq/L (5-15); Aspartate Aminotransferase 51 U/L (15-37); Blood Urea Nitrogen 11 mg/dL (7-18); Calcium 8.1 mg/dL (8.5-10.1); Chloride 99 meq/L (98-107); Glomerular Filtration Rate 74 mL/min (>89); Glucose,Random 114 mg/dL (74-106); Potassium 4.1 meq/L (3.5-5.1); Sodium 131 meq/L (136-145)
[2018-03-12 22:26] LABS: Alanine Aminotransferase 54 U/L (10-53); Alkaline Phosphatase 93 U/L (45-117); Total Protein 7.2 g/dL (6.4-8.2)
[2018-03-12 22:56] LABS: Eosinophils 2 % (0-4); Lymphocytes 31 % (9-44); Monocytes 5 % (0-8); Ovalocytes 1+; Platelet Estimate Normal (Normal); Platelet Morphology Normal (Normal)
[2018-03-12] MEDS ORDERED: Fluconazole 100 MG Tablet PO ONE (23:12)
[2018-03-13] MEDS ORDERED: Vancomycin Consult Pharmacy OTHER PRN (04:44)
[2018-03-13] MEDS ORDERED: Acetaminophen 325 MG Tablet PO PRN (04:48)
[2018-03-13] MEDS ORDERED: Bisacodyl 10 MG Supp RECTAL PRN (04:48)
[2018-03-13] MEDS ORDERED: Dextrose 50% in Water 50 ML Vial IV.PUSH PRN (04:48)
--- NOTE | 2018-03-13 05:09 | P.HP ---
History of Present Illness Service: [facility] Primary Care Physician: No Primary Care Physician History of Present Illness: 67-year-old female with a past medical history significant for known lung Pseudomonas infection treated as an outpatient with IV cefepime and Cipro, COPD , diabetes mellitus, hypertension and hypothyroidism presents to the emergency department for the evaluation of fevers. The patient was recently hospitalized for shortness of breath and fevers and was evaluated by pulmonology. She was discharged to home to continue with cefepime and ciprofloxacin. She reports her fevers returned today with a T-max of 104 orally at home. She states her shortness of breath is at baseline and is mildly improved with nebulizer treatments. The patient denies any chest pain. No abdominal pain. No nausea/ vomiting/diarrhea. No focal neurologic deficits. Inpatient Certification: I certify that the inpatient services were ordered in accordance with Medicare regulations governing the order. This includes certification that hospital inpatient services are reasonable and necessary and in the case of services not specified as inpatient-only under 42 CFR 419.22(n), that they are appropriately provided as inpatient services in accordance to with the 2-midnight benchmark under 43 CFR 412.3(e) Estimated Total Length of Stay (Days): 3 Plans for Post Hospital Care: Not yet determined Review of Systems All other systems reviewed negative except as stated [facility] - History History Provided By: Patient - Medical History Medical History: Medical History (Last Reviewed 03/13/18 @ 04:56 by Tamiko Tran MD) Cataract Diabetes mellitus Asthma Bronchiectasis COPD (chronic obstructive pulmonary disease) History of blood product transfusion Hx of osteopenia Hypertension Hypothyroidism Pseudomonas aeruginosa infection - Surgical History Surgical History: Surgical History (Last Reviewed 03/13/18 @ 04:56 by Tamiko Tran MD) History of total left knee replacement History of total right knee replacement Hx of tubal ligation S/P PICC central line placement - Family History Family History: Family History (Last Reviewed 03/13/18 @ 04:56 by Tamiko Tran MD) Other Family history normal - Social History I have reviewed the patient's Social History: Yes - Tobacco History Second Hand Smoke Exposure: No Tobacco Use In Past 30 Days: No Smoking Status: Never smoker - Alcohol History How Often Do You Have a Drink Containing Alcohol: Never - Substance Use History Substance History: No History of Abuse - Travel History Recent Travel in the [facility] Within the Last 8 Weeks: No Recent Travel Out of the Country Within the Last 8 Weeks: No - Immunization History Tetanus Immunization: <5 Years Medications and Allergies Active Medications: Active Medications Albuterol (Duoneb Neb (Prn)) 1 ampul NEB Q2HR NEB PRN PRN Reason: SHORTNESS OF BREATH/WHEEZING Last Admin: 03/13/18 01:29 Dose: 1 ampul Sodium Chloride (Ns Flush) 2 ml IV.FLUSH PRN PRN PRN Reason: FLUSH AFTER USING IV ACCESS Last Admin: 03/13/18 00:35 Dose: 2 ml Allergies Allergy/AdvReac Type Severity Reaction Status Date / Time No Known Allergies Allergy Verified 03/12/18 21:02 Home Medications Medication Instructions Recorded Confirmed Type alendronate [Fosamax] 70 mg PO QWEEK 02/19/18 03/12/18 History amlodipine 5 mg PO DAILY 02/19/18 03/12/18 History aspirin [Aspir-81] 81 mg PO DAILY 02/19/18 03/12/18 History ciprofloxacin HCl [Cipro] 500 mg PO BID 02/19/18 03/12/18 History udrywioonxa-mzjakyxby-vewhilln 1 inh INHALATION DAILY 02/19/18 03/12/18 History [Trelegy Ellipta] ipratropium-albuterol 3 ml INHALATION Q5H 02/19/18 03/13/18 History ipratropium-albuterol [Combivent 1 puff INHALATION Q6H 02/19/18 03/12/18 History Respimat] levothyroxine 100 mcg PO DAILY 02/19/18 03/12/18 History losartan 50 mg PO DAILY 02/19/18 03/12/18 History metformin 500 mg PO BID 02/19/18 03/12/18 History cefepime 2 g IV Q12H 03/08/18 03/12/18 History ergocalciferol (vitamin D2) 50,000 unit PO QWEEK 03/08/18 03/12/18 History [Vitamin D2] Exam Vital signs: Vital Signs 03/12/18 21:02 03/12/18 21:18 03/12/18 21:28 Temperature 99.1 F Pulse Rate 99 H 93 H Respiratory Rate 20 18 Blood Pressure 120/58 L 117/58 L Pulse Oximetry 95 100 98 03/12/18 23:13 03/13/18 00:00 03/13/18 00:36 Temperature 98.2 F Pulse Rate 80 76 Respiratory Rate 15 15 Blood Pressure 113/65 123/59 L Pulse Oximetry 98 98 98 03/13/18 00:47 03/13/18 01:00 03/13/18 01:28 Temperature Pulse Rate 68 Respiratory Rate 15 15 15 Blood Pressure Pulse Oximetry 03/13/18 02:00 Temperature Pulse Rate 75 Respiratory Rate Blood Pressure Pulse Oximetry Intake & Output 03/12/18 03/12/18 03/13/18 06:59 18:59 06:59 Intake Total 1000 / 1000 Balance 1000 / 1000 Weight 68.9 kg Intake: IV 1000 / 1000 NS Inj 1,000 ML @ Wide Open IV. 1000 / 1000 SIG [facility] Rx#:[id number] Other: Weight On Admission 68.9 kg Narrative: Gen.: No acute distress Head: Normocephalic. Atraumatic. EENT: Pupils equal round and reactive to light. Nose without drainage. Airway intact. Throat without injection. Cardiovascular: Regular rate and rhythm. No murmurs, rubs or gallops. Respiratory: Lungs clear to auscultation bilaterally. No wheezes or rhonchi. Abdomen: Soft, nontender, nondistended. No peritoneal signs. Musculoskeletal: No gross deformities. No edema. Skin: No obvious rashes or erythema. Neuro: Sensory and motor grossly intact. Cranial nerves II through XII grossly intact. Results - Labs CBC & Chem 7: 03/12/18 21:41 03/12/18 21:41 Labs: Laboratory Results - last 24 hr 03/12/18 03/12/18 03/12/18 21:41 21:41 21:41 WBC 4.4 RBC 3.40 L Hgb 9.6 L Hct 29.2 L MCV 85.9 MCH 28.3 MCHC 32.9 RDW 15.1 Plt Count 367 MPV 7.4 Prelim Diff (Auto) Slide review pending WBC Differential Manual diff final Seg Neuts % (Manual) 45 Band Neuts % (Manual) 17 H Lymphocytes % (Manual) 31 Monocytes % (Manual) 5 Eosinophils % (Manual) 2 Abs Neuts (Manual) 2.7 Differential Comment . Platelet Estimate Normal Platelet Morphology Normal Ovalocytes 1+ H Sodium 131 L Potassium 4.1 Chloride 99 Carbon Dioxide 26.0 Anion Gap 6 BUN 11 Creatinine 0.77 Estimated GFR 74 L Random Glucose 114 H Lactic Acid 0.9 Calcium 8.1 L Total Bilirubin 0.3 AST 51 H ALT 54 H Alkaline Phosphatase 93 Troponin I Less than 0.02 L Total Protein 7.2 D Albumin 2.8 L - Imaging Impressions Chest X-Ray 03/12/18 21:28 CONCLUSION: 1. Chronic interstitial prominence with stable left basilar patchy airspace disease. Caprini VTE Risk Assessment Caprini VTE Risk Assessment: Moderate/High Risk (score >= 2) Caprini Risk Assessment Model: Point Value = 1 Point Value = 2 Point Value = 3 Point Value = 5 Age 41-60 Minor surgery BMI > 25 kg/m2 Swollen legs Varicose veins or History of unexplained or recurrent spontaneous Oral contraceptives or hormone replacement Sepsis (< 1 month) Serious lung disease, including pneumonia (< 1 month) Abnormal pulmonary function Acute myocardial infarction Congestive heart failure (< 1 month) History of inflammatory bowel disease Medical patient at bed rest Age 61-74 Arthroscopic surgery Major open surgery (> 45 min) Laparoscopic surgery (> 45 min) Malignancy Confined to bed (> 72 hours) Immobilizing plaster cast Central venous access Age >= 75 History of VTE Family history of VTE Factor V Leiden Prothrombin [id number] Lupus anticoagulant Anticardiolipin antibodies Elevated serum homocysteine Heparin-induced thrombocytopenia Other congenital or acquired thrombophilia Stroke (< 1 month) Elective arthroplasty Hip, pelvis, or leg fracture Acute spinal cord injury (< 1 month) Prophylaxis Regimen: Total Risk Factor Score Risk Level Prophylaxis Regimen 0-1 Low Early ambulation 2 Moderate Order ONE of the following: *Sequential Compression Device (SCD) *Heparin 5000 units SQ BID 3-4 Higher Order ONE of the following medications: *Heparin 5000 units SQ TID *Enoxaparin/Lovenox 40 mg SQ daily (WT < 150 kg, CrCl > 30 mL/min) *Enoxaparin/Lovenox 30 mg SQ daily (WT < 150 kg, CrCl > 10-29 mL/min) *Enoxaparin/Lovenox 30 mg SQ BID (WT < 150 kg, CrCl > 30 mL/min) AND/OR *Sequential Compression Device (SCD) 5 or more Highest Order ONE of the following medications: *Heparin 5000 units SQ TID (Preferred with Epidurals) *Enoxaparin/Lovenox 40 mg SQ daily (WT < 150 kg, CrCl > 30 mL/min) *Enoxaparin/Lovenox 30 mg SQ daily (WT < 150 kg, CrCl > 10-29 mL/min) *Enoxaparin/Lovenox 30 mg SQ BID (WT < 150 kg, CrCl > 30 mL/min) AND *Sequential Compression Device (SCD) Assessment and Plan - Plan Assessment/plan: 1. Pseudomonas infection Patient with known pseudomonal infection, on outpatient cefepime and Cipro per infectious disease Sputum culture from 03/09/18 positive for gram-negative rods, awaiting susceptibilities and speciation Antibiotics as below 2. Positive sputum culture Sputum culture from 03/09/18 positive for Achromobacter xylosox/denitri, resistant to aztreonam, cefepime, gentamicin, tetracycline and tobramycin Vancomycin, Zosyn, Levaquin for stool pseudomonal coverage and Achromobacter coverage Sputum culture also positive for mold, concern for aspergillosis versus Mucor; while awaiting speciation, initiate micafungin to cover for both Repeat sputum culture pending Blood cultures pending HIV pending Infectious disease consulted, appreciate recommendations 3. COPD Patient on 2 L nasal cannula at home, continue Continue home inhalers 4. Hypertension/hypothyroidism Continue home medication 5. Diabetes mellitus Holding home metformin Sliding scale insulin Monitor blood glucose FEN Diabetic diet Electrolytes: Monitor and replete as needed Heparin
[2018-03-13] MEDS: Levothyroxine 100 MCG Tablet PO SCH (05:15)
[2018-03-13] MEDS: Piperacil/Tazo 4.5 GM Premix 4.5 GM/100 ML BAG IV.SIG SCH ×4 (05:15→22:46)
[2018-03-13] MEDS: Heparin - SQ 10,000 UNITS/ML Vial SQ SCH ×2 (05:15→16:50)
[2018-03-13] MEDS ORDERED: Vancomycin Inj 1,000 MG in Sodium Chlor 0.9% Inj 250 ML IV.SIG ONE (07:00)
[2018-03-13] MEDS: Insulin NovoLOG Aspart Correctional Sugar Inj SQ SCH ×4 (08:05→21:04)
[2018-03-13] MEDS: Senna/Docusate Sodium 8.6/50 MG Tablet PO SCH ×2 (08:50→21:04)
[2018-03-13] MEDS: amLODIPine 5 MG Tablet PO SCH (10:43)
--- NOTE | 2018-03-13 15:49 | P.PN ---
Subjective Interval history: Patient is seen sitting up in bed. Reports that she feels like she is breathing close to her baseline and without difficulty. Nasal cannula in place. She has been having low-grade fevers since discharge and last night decided to come in after it went up to 104. She reports exposure to black mold in her workplace about 10 years ago and is concerned that this might be affecting her now. Reports that she did have her house tested for mold and there was not any. She does say that she needs a new nebulizer machine as hers is very old but that she has changed the mask and tubing. Also reports frequently changing O2 tubing. No fever or chills this morning. No chest pain. Baseline S OB. No nausea vomiting or diarrhea. Physical Exam Vital signs: Vital Signs 03/12/18 21:02 03/12/18 21:18 03/12/18 21:28 Temperature 99.1 F Pulse Rate 99 H 93 H Respiratory Rate 20 18 Blood Pressure 120/58 L 117/58 L Pulse Oximetry 95 100 98 03/12/18 23:13 03/13/18 00:00 03/13/18 00:36 Temperature 98.2 F Pulse Rate 80 76 Respiratory Rate 15 15 Blood Pressure 113/65 123/59 L Pulse Oximetry 98 98 98 03/13/18 00:47 03/13/18 01:00 03/13/18 01:28 Temperature Pulse Rate 68 Respiratory Rate 15 15 15 Blood Pressure Pulse Oximetry 03/13/18 02:00 03/13/18 04:00 03/13/18 07:36 Temperature 98.6 F Pulse Rate 75 78 95 H Respiratory Rate 16 20 Blood Pressure 127/70 Pulse Oximetry 98 03/13/18 08:00 03/13/18 09:10 03/13/18 10:13 Temperature 100.0 F H 99.7 F H Pulse Rate 86 90 96 H Respiratory Rate 18 16 Blood Pressure 116/83 150/63 H Pulse Oximetry 96 92 L 03/13/18 12:00 03/13/18 12:46 Temperature 100.0 F H Pulse Rate 93 H 92 H Respiratory Rate 16 16 Blood Pressure 122/60 Pulse Oximetry 93 L Intake & Output 03/12/18 03/13/18 03/13/18 18:59 06:59 18:59 Intake Total 1250 / 1250 450 / 450 Balance 1250 / 1250 450 / 450 Weight 68.9 kg Intake: IV 1250 / 1250 450 / 450 Levaquin 750 mg Premix Inj 150 150 / 150 ML @ 100 mls/hr IV.SIG Q24H [facility] Rx#:[id number] Mycamine Inj 100 MG In NS Inj 100 / 100 100 ML @ 100 mls/hr IV.SIG Q24H [facility] Rx#:[id number] Zosyn 4.5 GM Premix 4.5 gm In 100 / 100 100 / 100 100 ml @ 200 mls/hr IV.SIG Q6H [facility] Rx#:[id number] NS Inj 1,000 ML @ Wide Open IV. 1000 / 1000 [facility] Rx#:[id number] Vancomycin Inj 1,000 MG In NS 250 / 250 Inj 250 ML @ 250 mls/hr IV.SIG ONCE ONE Rx#:[id number] Other: Date of Last Bowel Movement 03/12/18 Weight On Admission 68.9 kg Narrative: GENERAL: Well-nourished, well-developed adult female in no obvious distress. SKIN: Warm and dry. HEAD: Atraumatic. Normocephalic. CARDIOVASCULAR: Regular rate and rhythm. RESPIRATORY: No accessory muscle use. Scattered wheezes, no rhonchi. Breath sounds equal bilaterally. GASTROINTESTINAL: Abdomen soft, non-tender, non-distended. Positive bowel sounds. MUSCULOSKELETAL: Extremities without clubbing, cyanosis, or edema. No obvious deformities. NEUROLOGICAL: Awake and alert. No obvious cranial nerve deficits. Motor grossly within normal limits. Normal speech. PSYCHIATRIC: Appropriate mood and affect; insight and judgment good. Results - Labs CBC & Chem 7: 03/12/18 21:41 03/12/18 21:41 Laboratory Results - last 24 hr 03/12/18 03/12/18 03/12/18 21:41 21:41 21:41 WBC 4.4 RBC 3.40 L Hgb 9.6 L Hct 29.2 L MCV 85.9 MCH 28.3 MCHC 32.9 RDW 15.1 Plt Count 367 MPV 7.4 Prelim Diff (Auto) Slide review pending WBC Differential Manual diff final Seg Neuts % (Manual) 45 Band Neuts % (Manual) 17 H Lymphocytes % (Manual) 31 Monocytes % (Manual) 5 Eosinophils % (Manual) 2 Abs Neuts (Manual) 2.7 Differential Comment . Platelet Estimate Normal Platelet Morphology Normal Ovalocytes 1+ H Sodium 131 L Potassium 4.1 Chloride 99 Carbon Dioxide 26.0 Anion Gap 6 BUN 11 Creatinine 0.77 Estimated GFR 74 L POC Glucose Random Glucose 114 H Lactic Acid 0.9 Calcium 8.1 L Total Bilirubin 0.3 AST 51 H ALT 54 H Alkaline Phosphatase 93 Troponin I Less than 0.02 L Total Protein 7.2 D Albumin 2.8 L HIV 1&2 Ab/P24 Ag 4thGn 03/13/18 03/13/18 03/13/18 05:20 08:03 12:41 WBC RBC Hgb Hct MCV MCH MCHC RDW Plt Count MPV Prelim Diff (Auto) WBC Differential Seg Neuts % (Manual) Band Neuts % (Manual) Lymphocytes % (Manual) Monocytes % (Manual) Eosinophils % (Manual) Abs Neuts (Manual) Differential Comment Platelet Estimate Platelet Morphology Ovalocytes Sodium Potassium Chloride Carbon Dioxide Anion Gap BUN Creatinine Estimated GFR POC Glucose 79 116 H Random Glucose Lactic Acid Calcium Total Bilirubin AST ALT Alkaline Phosphatase Troponin I Total Protein Albumin HIV 1&2 Ab/P24 Ag 4thGn Nonreactive Microbiology 03/12/18 21:40 Blood - Peripheral Aerobic Blood Culture - Preliminary No growth in 1 day 03/12/18 21:40 Blood - Peripheral Anaerobic Blood Culture - Preliminary No growth in 1 day 03/12/18 21:30 Blood - Peripheral Aerobic Blood Culture - Preliminary No growth in 1 day 03/12/18 21:30 Blood - Peripheral Anaerobic Blood Culture - Preliminary No growth in 1 day 03/13/18 08:50 Sputum - Expectorated Sputum Gram Stain - Final 03/12/18 22:20 Nasal Wash Influenza Types A,B Antigen - Final Negative for FLU A and B antigen Infection due to influenza A or B cannot be ruled out since the antigen present in the sample may be below the detection limit of the test. - Imaging Impressions Chest X-Ray 03/12/18 21:28 CONCLUSION: 1. Chronic interstitial prominence with stable left basilar patchy airspace disease. Assessment and Plan - Plan 67-year-old female with a past medical history significant for known lung Pseudomonas infection treated as an outpatient with IV cefepime and Cipro, COPD , diabetes mellitus, hypertension and hypothyroidism presents to the emergency department for the evaluation of fevers. Pseudomonas infection; Bronchiectasis -Sputum culture from 03/09/18 positive for gram-negative rods, awaiting susceptibilities and speciation -Antibiotics as below Positive sputum culture Sputum culture from 03/09/18 positive for Achromobacter xylosox/denitri, resistant to aztreonam, cefepime, gentamicin, tetracycline and tobramycin -Vancomycin, Zosyn, Levaquin for stool pseudomonal coverage and Achromobacter coverage Sputum culture also positive for mold, concern for aspergillosis versus Mucor; while awaiting speciation, initiate micafungin to cover for both -Repeat sputum culture pending -Blood cultures pending; blood cultures done no growth -HIV negative -Infectious disease consulted, appreciate recommendations COPD/Asthma -Patient on 2 L nasal cannula at home, continue -Continue home inhalers -Pulmonology consult; follows with Dr. Izquierdo Hypertension/hypothyroidism -Continue home medication Diabetes mellitus -Holding home metformin -Sliding scale insulin -Monitor blood glucose DVT prophylaxis: Heparin Discharge planning: Likely home; may need long-term antibiotic use -currently has PICC
--- NOTE | 2018-03-13 16:18 | MB ---
cc: Tutu Mohamud MD DATE: 03/13/2018 REQUESTING PHYSICIAN: Tamiko Tran MD REASON FOR CONSULTATION: Patient with known history of Pseudomonas. Sputum culture growing Achromobacter and mold. HISTORY OF PRESENT ILLNESS: This is a 67-year-old white female who was just evaluated in this hospital a few days ago. The patient was being treated for pneumonia as an outpatient by infectious disease physician with IV antibiotics. She was evaluated in the emergency department on 03/09/2018 and sputum cultures were obtained. She had presented with fevers. She had a temperature of 102 on 03/08/2018. Her temperature improved and she was discharged home on antibiotics, which she was receiving previously for Pseudomonas. She was discharged on 03/10/2018. The patient developed fever at home again and presented to the emergency department on 03/12/2018. Sputum culture from 03/09/2018 returned showing growth of Achromobacter, gram-negative raghav and Aspergillus species. The Aspergillus species was in rare amounts. She reports that her temperature was 104 degrees before she came to the Emergency Department. Temperature in the emergency department maximum is 100 degrees. The patient states that she had some nausea. She also notes that she is coughing up a light amount of sputum without significant color and she denies hemoptysis. Her white count is normal with left shift that is including 17% bands. Chest x-ray shows chronic interstitial prominence with stable left basilar patchy airspace disease. She denies headache and she denies chills. She has no other complaints. PAST MEDICAL HISTORY: COPD, bronchiectasis, asthma, diabetes mellitus, hypertension, hypothyroidism, osteopenia, Pseudomonas aeruginosa pulmonary infection, bilateral knee replacements, tubal ligation. ALLERGIES: NO KNOWN DRUG ALLERGIES. MEDICATIONS: 1. Ecotrin. 2. Norvasc. 3. Levaquin. 4. Synthroid. 5. Cozaar. 6. Piperacillin/tazobactam. 7. Micafungin. SOCIAL HISTORY: The patient is . No tobacco. No alcohol. No illicit drugs. FAMILY HISTORY: Noncontributory. REVIEW OF SYSTEMS: All systems have been reviewed and are negative, except for the features mentioned in history of present illness. PHYSICAL EXAMINATION: GENERAL: She is a slender female who is in no acute distress. She looks chronically ill. VITAL SIGNS: Temperature 100 degrees, BP 122/60, respirations 16, heart rate is 92. HEENT: Head is atraumatic. Extraocular movements grossly intact, pupils reactive to light. No icterus. Oropharynx: Moist mucosa without visible lesions. NECK: No adenopathy or swelling. LUNGS: Bilateral rales diffuse. HEART: Regular rate and rhythm without murmurs, rubs or gallops. ABDOMEN: Bowel sounds present. Soft, no tenderness appreciated. RECTAL: Not performed. EXTREMITIES: No clubbing, cyanosis or edema. Muscle wasting of the extremities. SKIN: No rash. NEUROLOGIC: Nonfocal. The patient is calm and cooperative. LABORATORY DATA: WBC 4.4, platelet 367, 45% neutrophils, 17% bands, 31% lymphocytes. Creatinine 0.77, BUN 11, sodium 131, AST 51, ALT 54, alkaline phosphatase 93. Blood cultures: No growth in 1 day. Influenza test negative. Repeat sputum culture pending. Sputum Gram stain shows few white cells, moderate gram-negative rods, and few gram-positive cocci. IMPRESSION: 1. Fever in a patient with chronic lung disease. Recent pneumonia, being treated with IV antibiotics. 2. Positive sputum culture with Aspergillus in addition to gram-negative raghav and Achromobacter and chronic interstitial left basilar opacity. In light of the fact that the patient continues to have fevers despite current antibiotic treatment, which should cover the gram-negative rods, the Aspergillus species may be pathogenic. RECOMMENDATIONS: 1. Discontinue micafungin. 2. Begin voriconazole. 3. Continue piperacillin/tazobactam. 4. Continue Levaquin. 5. Monitor the gram-negative bacteria sensitivity and identity. 6. Obtain CT scan of the chest for further evaluation of the lung. 7. Monitor temperature. 8. Monitor the clinical status. Thank you for this consultation. I will monitor the patient's progress with you and will follow the new sputum culture and further recommendations will be given upon followup if necessary. MD GRANT Polo/james , 03:09 PM , 03:23 PM
[2018-03-13] MEDS: VORICONAZOLE IV.SIG SCH (16:50)
[2018-03-13] MEDS: SODIUM CHLOR 0.9% IV.SIG SCH (16:50)
--- NOTE | 2018-03-13 18:24 | MB ---
cc: Merritt Salcido MD DATE: 03/13/2018 REQUESTING PHYSICIAN: FRANCISCO Aburto REASON FOR CONSULTATION: Evaluate lung infiltrate and bronchiectasis. HISTORY OF PRESENT ILLNESS: The patient is a 67-year-old female who follows with Dr. Yury Izquierdo. She has a history of bronchiectasis, recent pseudomonas infection. She was being treated with outpatient antibiotic. She was admitted in this hospital last week because she was having fever at that time. She has cultures done and she went home, continued to have fever and came back. Her fever was going up to 104, has occasional chills. No nausea or vomiting. She continued to have fever and she came back to the hospital. PAST MEDICAL HISTORY: Significant history of bronchiectasis, recent pseudomonas infection, history of knee replacement, history of DVT, after the knee surgery, history of hypothyroidism, hypertension, history of tubal ligation. MEDICATIONS: She is currently takin. Tylenol. 2. Milk of magnesia. 3. Nebulized treatment with DuoNeb 4 times a day. 4. Amlodipine 5 mg a day. 5. Aspirin 81 mg a day. 6. Cefepime 2 g every 12 hours. 7. Ciprofloxacin 500 mg twice a day. 8. Heparin 5000 units every 12 hours. 9. Insulin sliding scale. 10. Levaquin 750 mg a day. 11. Levothyroxine 100 mcg a day. 12. Losartan 50 mg a day. 13. Ellipta. 14. Zosyn IV 15. Voriconazole 400 mg every 12 hours. ALLERGIES: NO KNOWN DRUG ALLERGIES. SOCIAL HISTORY: She denies any history of smoking. She had secondhand smoke exposure. 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 FAMILY HISTORY: She has 3 children. REVIEW OF SYSTEMS: She has lost 50-pound weight on her own because she cut down on the carb. She has gained some weight back. No history of seizure, stroke or pleurisy. Her appetite is poor. PHYSICAL EXAMINATION: GENERAL: Pleasant, elderly female, mildly short of breath, not in any acute distress. VITAL SIGNS: Blood pressure 122/60, heart rate 93, respirations 16, temperature 100.0. HEENT: Pupils are equal and reactive to light. Oral mucosa and nasal mucosa normal. NECK: Supple. JVP not raised. CHEST: She has scattered rhonchi. HEART: S1, S2 normal. ABDOMEN: Benign. EXTREMITIES: No edema. IMPRESSION: 1. Bronchiectasis. 2. Aspergillus infection. 3. Pseudomonas infection. 4. Chronic obstructive pulmonary disease. 5. Arthritis. 6. Hypothyroidism. PLAN: I discussed with the patient and her will continue aerosol treatment: Continue antibiotic and antifungal medication per ID recommendations. CT scan of the chest. The patient is known to Dr. Yury Izquierdo to follow this patient. MD SUKHJINDER Daniels/te/regina , 03:27 PM , 03:38 PM [email or web address]
--- NOTE | 2018-03-13 19:40 | CT ---
EXAM DATE: 03/13/2018 7:30 PM EST AGE/SEX: 67 years / Female INDICATIONS: Shortness of breath. CLINICAL DATA: This is the patient's initial encounter. Patient reports that signs and symptoms have been present for 1 day and indicates a pain score of 0/10. MEDICAL/SURGICAL HISTORY: Chronic obstructive pulmonary disease. Hypertension. Tubal ligation. RADIATION DOSE: 8.87 CTDI (mGy) COMPARISON: [facility], CT CHEST W/O CONTRAST, 08/17/2017. . TECHNIQUE: Multiple contiguous axial images were obtained through the chest during bolus infusion of 72 ml Omnipaque 350 (iohexol) nonionic water-soluble contrast as a single exam dose. Images were obtained in suspended respiration using multiple row detector helical technique. Using automated exp osure control and adjustment of the mA and/or kV according to patient size, radiation dose was kept a s low as reasonably achievable to obtain optimal diagnostic quality images. DICOM format image data is available electronically for review and comparison. FINDINGS: Basilar predominant bronchiectasis and chronic tree-in-bud type inflammatory infiltrates are again se en of both lungs. There is modest worsening of patchy parenchymal consolidation in the left lower lob e but otherwise the findings appear similar to before. No pleural effusion demonstrated. No pneumotho rax. Mildly enlarged mediastinal lymph nodes are again seen, for example a subcarinal lymph node that madelaine ures 17 x 27 mm. There are hilar lymph nodes that measure up to 15 mm in greatest short axis dimensio n. Normal, stable heart size. Tiny pericardial effusion, similar to before. Coronary artery calcificatio n noted. There is a small hiatal hernia. No acute bony abnormality demonstrated. CONCLUSION: 1. Patchy alveolar pneumonia in the left lower lobe. 2. Chronic bronchiectasis and inflammatory infiltrates of both lungs are otherwise not significantly changed. 3. No significant change upper limits of normal to mildly enlarged mediastinal and hilar lymph nodes area 4. Tiny pericardial effusion. Coronary artery calcification. Electronically signed by: Hitesh Matos MD 03/13/2018 7:39 PM EST
[2018-03-13] MEDS: Vancomycin Inj 1,000 MG in Sodium Chlor 0.9% Inj 250 ML IV.SIG SCH (19:46)
[2018-03-14] MEDS: Insulin NovoLOG Aspart Correctional Sugar Inj SQ SCH ×5 (04:06→22:14)
[2018-03-14] MEDS: Piperacil/Tazo 4.5 GM Premix 4.5 GM/100 ML BAG IV.SIG SCH ×3 (04:28→17:58)
[2018-03-14] MEDS: Heparin - SQ 10,000 UNITS/ML Vial SQ SCH ×2 (04:28→17:59)
[2018-03-14] MEDS: VORICONAZOLE IV.SIG SCH ×2 (05:47→18:47)
[2018-03-14] MEDS: SODIUM CHLOR 0.9% IV.SIG SCH ×2 (05:47→18:47)
[2018-03-14] MEDS: Levothyroxine 100 MCG Tablet PO SCH (05:47)
[2018-03-14] MEDS: amLODIPine 5 MG Tablet PO SCH (08:03)
[2018-03-14] MEDS: Vancomycin Inj 1,000 MG in Sodium Chlor 0.9% Inj 250 ML IV.SIG SCH ×2 (08:04→22:08)
[2018-03-14] MEDS: Senna/Docusate Sodium 8.6/50 MG Tablet PO SCH ×2 (08:07→22:09)
[2018-03-14 10:03] LABS: Baso % (Auto) 0.4 % (0.0-2.0); Eos # (Auto) 0.5 th/mm3 (0.0-0.4); Eos % (Auto) 8.8 % (0.0-4.0); Hematocrit 30.8 % (35.0-46.0); Hemoglobin 10.2 gm/dL (11.6-15.3); Lymph # (Auto) 1.2 th/mm3 (1.0-4.8); Lymph % (Auto) 20.6 % (9.0-44.0); Mean Corpuscular HGB Conc 33.1 % (32.0-36.0); Mean Corpuscular Hemoglobin 28.8 pg (27.0-34.0); Mean Platelet Volume 7.3 fL (7.0-11.0); Mono # (Auto) 1.3 th/mm3 (0.0-0.9); Mono % (Auto) 21.9 % (0.0-8.0); Neut # (Auto) 2.9 th/mm3 (1.8-7.7); Neut % (Auto) 48.3 % (16.0-70.0); Platelet Count 360 th/mm3 (150-450); Red Blood Count 3.54 mil/mm3 (4.00-5.30); Red Cell Distribution Width 15.5 % (11.6-17.2)
[2018-03-14 10:29] LABS: Calcium 8.6 mg/dL (8.5-10.1); Potassium 3.9 meq/L (3.5-5.1)
--- NOTE | 2018-03-14 16:42 | P.PNPL ---
Subjective Interval history: 69 YOWF with Bronchiectesis, Pseudomonas inf found to have Aspergillus Started on Voriconazole Breathing better Cough with sputum Physical Exam Vital signs: Vital Signs 03/13/18 17:54 03/13/18 20:00 03/14/18 00:00 Temperature 98.6 F 99.9 F H Pulse Rate 86 86 79 Respiratory Rate 16 18 18 Blood Pressure 119/61 127/73 Pulse Oximetry 97 97 03/14/18 01:40 03/14/18 04:00 03/14/18 07:17 Temperature 99.1 F Pulse Rate 79 85 86 Respiratory Rate 19 17 20 Blood Pressure 96/55 L Pulse Oximetry 96 03/14/18 07:18 03/14/18 07:51 03/14/18 08:05 Temperature 98.4 F Pulse Rate 84 84 Respiratory Rate 18 Blood Pressure 108/63 Pulse Oximetry 96 96 03/14/18 10:07 03/14/18 12:00 Temperature 98.3 F Pulse Rate 84 Respiratory Rate 16 Blood Pressure 104/62 Pulse Oximetry 96 98 Intake & Output 03/13/18 03/14/18 03/14/18 18:59 06:59 18:59 Intake Total 550 / 550 700 / 700 350 / 350 Balance 550 / 550 700 / 700 350 / 350 Intake: IV 550 / 550 700 / 700 350 / 350 Levaquin 750 mg Premix Inj 150 150 / 150 ML @ 100 mls/hr IV.SIG Q24H [facility] Rx#:[id number] Mycamine Inj 100 MG In NS Inj 100 / 100 100 ML @ 100 mls/hr IV.SIG Q24H [facility] Rx#:[id number] Zosyn 4.5 GM Premix 4.5 gm In 100 / 100 200 / 200 100 / 100 100 ml @ 200 mls/hr IV.SIG Q6H [facility] Rx#:[id number] Vancomycin Inj 1,000 MG In NS 250 / 250 250 / 250 250 / 250 Inj 250 ML @ 250 mls/hr IV.SIG Q12H [facility] Rx#:[id number] VFend Inj 400 MG In NS Inj 100 100 / 100 100 / 100 ML @ 100 mls/hr IV.SIG Q12H [facility] Rx#:[id number] Other: Date of Last Bowel Movement 03/12/18 03/12/18 03/13/18 GENERAL: Elderly WF, NAD SKIN: Warm and dry. HEAD: Normocephalic. EYES: No scleral icterus. No injection or drainage. NECK: Supple, trachea midline. No JVD or lymphadenopathy. CARDIOVASCULAR: Regular rate and rhythm without murmurs, gallops, or rubs. RESPIRATORY: Breath sounds equal bilaterally. No accessory muscle use. Scattered rhonchi. GASTROINTESTINAL: Abdomen soft, non-tender, nondistended. MUSCULOSKELETAL: No cyanosis, or edema. BACK: Nontender without obvious deformity. No CVA tenderness. Assessment and Plan - Plan IMPRESSION: 1. Bronchiectasis. 2. Aspergillus infection. 3. Pseudomonas infection. 4. Chronic obstructive pulmonary disease. 5. Arthritis. 6. Hypothyroidism. PLAN: Cont Abx per ID Cont Voriconazole Check cultures Aerosol nebs use Acapella
--- NOTE | 2018-03-14 17:08 | P.PN ---
Subjective Interval history: Patient seen sitting up in bed. No new complaint of shortness of breath. She has had some yellowish sputum. No fever or chills. Physical Exam Vital signs: Vital Signs 03/13/18 17:54 03/13/18 20:00 03/14/18 00:00 Temperature 98.6 F 99.9 F H Pulse Rate 86 86 79 Respiratory Rate 16 18 18 Blood Pressure 119/61 127/73 Pulse Oximetry 97 97 03/14/18 01:40 03/14/18 04:00 03/14/18 07:17 Temperature 99.1 F Pulse Rate 79 85 86 Respiratory Rate 19 17 20 Blood Pressure 96/55 L Pulse Oximetry 96 03/14/18 07:18 03/14/18 07:51 03/14/18 08:05 Temperature 98.4 F Pulse Rate 84 84 Respiratory Rate 18 Blood Pressure 108/63 Pulse Oximetry 96 96 03/14/18 10:07 03/14/18 12:00 03/14/18 16:00 Temperature 98.3 F 98.7 F Pulse Rate 84 88 Respiratory Rate 16 16 Blood Pressure 104/62 117/70 Pulse Oximetry 96 98 97 Intake & Output 03/13/18 03/14/18 03/14/18 18:59 06:59 18:59 Intake Total 550 / 550 700 / 700 350 / 350 Balance 550 / 550 700 / 700 350 / 350 Intake: IV 550 / 550 700 / 700 350 / 350 Levaquin 750 mg Premix Inj 150 150 / 150 ML @ 100 mls/hr IV.SIG Q24H [facility] Rx#:[id number] Mycamine Inj 100 MG In NS Inj 100 / 100 100 ML @ 100 mls/hr IV.SIG Q24H [facility] Rx#:[id number] Zosyn 4.5 GM Premix 4.5 gm In 100 / 100 200 / 200 100 / 100 100 ml @ 200 mls/hr IV.SIG Q6H [facility] Rx#:[id number] Vancomycin Inj 1,000 MG In NS 250 / 250 250 / 250 250 / 250 Inj 250 ML @ 250 mls/hr IV.SIG Q12H [facility] Rx#:[id number] VFend Inj 400 MG In NS Inj 100 100 / 100 100 / 100 ML @ 100 mls/hr IV.SIG Q12H [facility] Rx#:[id number] Other: Date of Last Bowel Movement 03/12/18 03/12/18 03/13/18 Narrative: GENERAL: Well-nourished, well-developed adult female in no obvious distress. SKIN: Warm and dry. HEAD: Atraumatic. Normocephalic. CARDIOVASCULAR: Regular rate and rhythm. RESPIRATORY: No accessory muscle use. Scattered wheezes, no rhonchi. Breath sounds equal bilaterally. GASTROINTESTINAL: Abdomen soft, non-tender, non-distended. Positive bowel sounds. MUSCULOSKELETAL: Extremities without clubbing, cyanosis, or edema. No obvious deformities. NEUROLOGICAL: Awake and alert. No obvious cranial nerve deficits. Motor grossly within normal limits. Normal speech. PSYCHIATRIC: Appropriate mood and affect; insight and judgment good. Results - Labs CBC & Chem 7: 03/14/18 09:40 03/14/18 09:40 Laboratory Results - last 24 hr 03/13/18 03/13/18 03/14/18 16:57 20:49 08:20 WBC RBC Hgb Hct MCV MCH MCHC RDW Plt Count MPV Neut % (Auto) Lymph % (Auto) [place] % (Auto) Eos % (Auto) Baso % (Auto) Neut # (Auto) Lymph # (Auto) [place] # (Auto) Eos # (Auto) Baso # (Auto) WBC Differential Differential Comment Sodium Potassium Chloride Carbon Dioxide Anion Gap BUN Creatinine Estimated GFR POC Glucose 115 H 145 H 113 H Random Glucose Calcium 03/14/18 03/14/18 03/14/18 09:40 09:40 13:12 WBC 6.0 RBC 3.54 L Hgb 10.2 L Hct 30.8 L MCV 87.0 MCH 28.8 MCHC 33.1 RDW 15.5 Plt Count 360 MPV 7.3 Neut % (Auto) 48.3 Lymph % (Auto) 20.6 Andrews % (Auto) 21.9 H Eos % (Auto) 8.8 H Baso % (Auto) 0.4 Neut # (Auto) 2.9 Lymph # (Auto) 1.2 Andrews # (Auto) 1.3 H Eos # (Auto) 0.5 H Baso # (Auto) 0.0 WBC Differential . Differential Comment Auto diff final Sodium 138 Potassium 3.9 Chloride 103 Carbon Dioxide 26.0 Anion Gap 9 BUN 6 L Creatinine 0.73 Estimated GFR 79 L POC Glucose 123 H Random Glucose 110 H Calcium 8.6 Microbiology 03/13/18 08:50 Sputum - Expectorated Sputum Gram Stain - Final 03/13/18 08:50 Sputum - Expectorated Sputum Sputum Culture - Preliminary gram negative rods 03/12/18 21:40 Blood - Peripheral Aerobic Blood Culture - Preliminary No growth in 2 days 03/12/18 21:40 Blood - Peripheral Anaerobic Blood Culture - Preliminary No growth in 2 days 03/12/18 21:30 Blood - Peripheral Aerobic Blood Culture - Preliminary No growth in 2 days 03/12/18 21:30 Blood - Peripheral Anaerobic Blood Culture - Preliminary No growth in 2 days - Imaging Impressions Chest CT 03/13/18 00:00 CONCLUSION: 1. Patchy alveolar pneumonia in the left lower lobe. 2. Chronic bronchiectasis and inflammatory infiltrates of both lungs are otherwise not significantly changed. 3. No significant change upper limits of normal to mildly enlarged mediastinal and hilar lymph nodes area 4. Tiny pericardial effusion. Coronary artery calcification. Assessment and Plan - Assessment (1) Febrile illness Code(s): R50.9 - Fever, unspecified Status: Acute (2) Failure of outpatient treatment Code(s): Z78.9 - Other specified health status Status: Acute (3) Infiltrate of lung present on chest x-ray Code(s): R91.8 - Other nonspecific abnormal finding of lung field Status: Acute (4) Bronchiectasis Code(s): J47.9 - Bronchiectasis, uncomplicated Status: Chronic (5) Asthma Code(s): J45.909 - Unspecified asthma, uncomplicated Status: Chronic - Plan 67-year-old female with a past medical history significant for known lung Pseudomonas infection treated as an outpatient with IV cefepime and Cipro, COPD , diabetes mellitus, hypertension and hypothyroidism presents to the emergency department for the evaluation of fevers. Chronic Pseudomonas infection; Bronchiectasis Sputum culture from 03/09/18 positive for Achromobacter xylosox/denitri & mold -Repeat sputum culture pending -Blood cultures pending; blood cultures done 03/09/18 no growth to date -HIV negative -Has had prior workup for anemia and leukemia from Heme/Onc; may consider repeating as outpatient -ABX per ID COPD/Asthma -Patient on 2 L nasal cannula at home, continue -Continue home inhalers -Pulmonology consult; follows with Dr. Izquierdo Hypertension/hypothyroidism -Continue home medication Diabetes mellitus -Holding home metformin -Sliding scale insulin -Monitor blood glucose DVT prophylaxis: Heparin Discharge planning: Likely home; may need long-term antibiotic use -currently has PICC
[2018-03-14] MEDS ORDERED: Pharmacy Ordered Lab Info OTHER ONE (19:45)
[2018-03-15] MEDS: Piperacil/Tazo 4.5 GM Premix 4.5 GM/100 ML BAG IV.SIG SCH ×5 (01:00→21:02)
[2018-03-15] MEDS: Insulin NovoLOG Aspart Correctional Sugar Inj SQ SCH ×5 (02:16→21:02)
[2018-03-15] MEDS: Vancomycin Inj 1,000 MG in Sodium Chlor 0.9% Inj 250 ML IV.SIG SCH ×2 (04:09→13:31)
[2018-03-15] MEDS: Heparin - SQ 10,000 UNITS/ML Vial SQ SCH ×2 (05:46→17:48)
[2018-03-15] MEDS: Levothyroxine 100 MCG Tablet PO SCH (05:46)
[2018-03-15] MEDS: VORICONAZOLE IV.SIG SCH (09:04)
[2018-03-15] MEDS: SODIUM CHLOR 0.9% IV.SIG SCH (09:04)
[2018-03-15] MEDS: amLODIPine 5 MG Tablet PO SCH (09:31)
[2018-03-15] MEDS: Senna/Docusate Sodium 8.6/50 MG Tablet PO SCH ×2 (09:31→21:02)
--- NOTE | 2018-03-15 11:21 | P.PNIM ---
Subjective Interval history: No significant improvement in respiratory status. Exertion patient becomes severely dyspneic. Resting in bed with oxygen she is stable. Physical Exam Vital signs: Vital Signs 03/14/18 12:00 03/14/18 16:00 03/14/18 19:47 Temperature 98.3 F 98.7 F 99.8 F H Pulse Rate 84 88 80 Respiratory Rate 16 16 19 Blood Pressure 104/62 117/70 121/70 Pulse Oximetry 98 97 97 03/14/18 20:54 03/15/18 00:00 03/15/18 00:12 Temperature 99.1 F Pulse Rate 75 84 91 H Respiratory Rate 18 17 18 Blood Pressure 119/70 Pulse Oximetry 98 97 03/15/18 04:00 03/15/18 04:21 03/15/18 07:00 Temperature 98.8 F Pulse Rate 82 86 81 Respiratory Rate 16 16 16 Blood Pressure 118/66 Pulse Oximetry 98 03/15/18 07:51 03/15/18 08:00 Temperature 98.3 F Pulse Rate 83 Respiratory Rate 18 Blood Pressure 123/59 L Pulse Oximetry 98 95 Intake & Output 03/14/18 03/15/18 03/15/18 18:59 06:59 18:59 Intake Total 450 / 450 700 / 700 350 / 350 Balance 450 / 450 700 / 700 350 / 350 Intake: IV 450 / 450 700 / 700 350 / 350 Levaquin 750 mg Premix Inj 150 150 / 150 ML @ 100 mls/hr IV.SIG Q24H [facility] Rx#:[id number] Zosyn 4.5 GM Premix 4.5 gm In 200 / 200 100 / 100 100 / 100 100 ml @ 200 mls/hr IV.SIG Q6H [facility] Rx#:[id number] Vancomycin Inj 1,000 MG In NS 250 / 250 500 / 500 Inj 250 ML @ 250 mls/hr IV.SIG Q8H [facility] Rx#:[id number] VFend Inj 280 MG In NS Inj 100 100 / 100 100 / 100 ML @ 100 mls/hr IV.SIG Q12H [facility] Rx#:[id number] Other: Date of Last Bowel Movement 03/13/18 03/13/18 03/13/18 Narrative: GENERAL: NAD, A&Ox3 HEAD: Normocephalic. NECK: Supple, trachea midline. No lymphadenopathy. EYES: No scleral icterus. No injection or drainage. CARDIOVASCULAR: Regular rate and rhythm without murmurs, gallops, or rubs. RESPIRATORY: Breath sounds equal bilaterally. No accessory muscle use. Bilateral rhonchi and crackles GASTROINTESTINAL: Abdomen soft, non-tender, nondistended. MUSCULOSKELETAL: No cyanosis, or edema. SKIN: Warm and dry. NEURO: No focal neurological deficits. Results - Labs CBC & Chem 7: 03/14/18 09:40 03/14/18 09:40 Laboratory Results - last 24 hr 03/14/18 03/14/18 03/14/18 13:12 18:06 20:10 POC Glucose 123 H 100 Vancomycin Trough 8.3 03/14/18 03/15/18 22:14 08:13 POC Glucose 121 H 113 H Vancomycin Trough Microbiology 03/12/18 21:40 Blood - Peripheral Aerobic Blood Culture - Preliminary No growth in 3 days 03/12/18 21:40 Blood - Peripheral Anaerobic Blood Culture - Preliminary No growth in 3 days 03/12/18 21:30 Blood - Peripheral Aerobic Blood Culture - Preliminary No growth in 3 days 03/12/18 21:30 Blood - Peripheral Anaerobic Blood Culture - Preliminary No growth in 3 days 03/13/18 08:50 Sputum - Expectorated Sputum Gram Stain - Final 03/13/18 08:50 Sputum - Expectorated Sputum Sputum Culture - Preliminary gram negative rods Assessment and Plan - Assessment (1) Febrile illness Code(s): R50.9 - Fever, unspecified Status: Acute (2) Failure of outpatient treatment Code(s): Z78.9 - Other specified health status Status: Acute (3) Infiltrate of lung present on chest x-ray Code(s): R91.8 - Other nonspecific abnormal finding of lung field Status: Acute (4) Bronchiectasis Code(s): J47.9 - Bronchiectasis, uncomplicated Status: Chronic (5) Asthma Code(s): J45.909 - Unspecified asthma, uncomplicated Status: Chronic - Plan 67-year-old female admitted secondary to fever with pre-existing chronic pneumonia. Known pre-existing history of Pseudomonas infection currently under treatment with cefepime and Cipro as an outpatient. New diagnosis of pulmonary aspergillosis. Chronic Pseudomonas infection Bronchiectasis Pulmonary aspergillosis Pulmonology following ID following Continue Levaquin Continue vancomycin Continue Zosyn Continue voriconazole Probiotics COPD Asthma Contributory to patient's hypoxia Patient has been on 2 L nasal cannula at home Continue baseline inhalers Pulmonology following Hypertension Continue baseline treatment Follow blood pressures Adjust treatments as needed Diabetes mellitus type 2 Follow blood sugars Insulin sliding scale Diabetic diet Hypothyroidism Continue baseline treatments Follow-up as an outpatient DVT prophylaxis Heparin Discharge Planning Respiratory status needs improvement prior to discharge PICC with outpatient antibiotics anticipated at discharge
[2018-03-15] MEDS: Lactobacillus Acidophilus/L. Spores Tablet PO SCH ×2 (13:45→17:48)
--- NOTE | 2018-03-15 14:18 | P.PNID ---
Subjective Remarks: Patient states that she is starting to feel better. Denies chills. Little sputum production. Repeat sputum culture has Achromobacter. Sputum culture from 03/09/2018 returned showing growth of Achromobacter, gram-negative raghav and Aspergillus species. The Aspergillus species was in rare amounts. She reports that her temperature was 104 degrees before she came to the Emergency Department. Past Medical History: PAST MEDICAL HISTORY: COPD, bronchiectasis, asthma, diabetes mellitus, hypertension, hypothyroidism, osteopenia, Pseudomonas aeruginosa pulmonary infection, bilateral knee replacements, tubal ligation. Allergies/Adverse Reactions: Allergies No Known Allergies Allergy (Verified 03/12/18 21:02) Objective Vital Signs 03/14/18 16:00 03/14/18 19:47 03/14/18 20:54 Temperature 98.7 F 99.8 F H Pulse Rate 88 80 75 Respiratory Rate 16 19 18 Blood Pressure 117/70 121/70 Pulse Oximetry 97 97 98 03/15/18 00:00 03/15/18 00:12 03/15/18 04:00 Temperature 99.1 F 98.8 F Pulse Rate 84 91 H 82 Respiratory Rate 17 18 16 Blood Pressure 119/70 118/66 Pulse Oximetry 97 98 03/15/18 04:21 03/15/18 07:00 03/15/18 07:51 Temperature Pulse Rate 86 81 Respiratory Rate 16 16 Blood Pressure Pulse Oximetry 98 03/15/18 08:00 03/15/18 09:00 03/15/18 11:00 Temperature 98.3 F Pulse Rate 83 84 92 H Respiratory Rate 18 16 Blood Pressure 123/59 L Pulse Oximetry 95 03/15/18 12:00 Temperature 98.8 F Pulse Rate 81 Respiratory Rate 20 Blood Pressure 108/57 L Pulse Oximetry 96 Intake & Output 03/14/18 03/15/18 03/15/18 18:59 06:59 18:59 Intake Total 450 / 450 700 / 700 350 / 350 Balance 450 / 450 700 / 700 350 / 350 Intake: IV 450 / 450 700 / 700 350 / 350 Levaquin 750 mg Premix Inj 150 150 / 150 ML @ 100 mls/hr IV.SIG Q24H [facility] Rx#:[id number] Zosyn 4.5 GM Premix 4.5 gm In 200 / 200 100 / 100 100 / 100 100 ml @ 200 mls/hr IV.SIG Q6H [facility] Rx#:[id number] Vancomycin Inj 1,000 MG In NS 250 / 250 500 / 500 Inj 250 ML @ 250 mls/hr IV.SIG Q8H [facility] Rx#:[id number] VFend Inj 280 MG In NS Inj 100 100 / 100 100 / 100 ML @ 100 mls/hr IV.SIG Q12H [facility] Rx#:[id number] Other: Date of Last Bowel Movement 03/13/18 03/13/18 03/13/18 03/13/18 08:50 Sputum - Expectorated Sputum Gram Stain - Final 03/13/18 08:50 Sputum - Expectorated Sputum Sputum Culture - Final Achromobacter xylosox/denitri 03/12/18 21:40 Blood - Peripheral Aerobic Blood Culture - Preliminary No growth in 3 days 03/12/18 21:40 Blood - Peripheral Anaerobic Blood Culture - Preliminary No growth in 3 days 03/12/18 21:30 Blood - Peripheral Aerobic Blood Culture - Preliminary No growth in 3 days 03/12/18 21:30 Blood - Peripheral Anaerobic Blood Culture - Preliminary No growth in 3 days 03/12/18 22:20 Nasal Wash Influenza Types A,B Antigen - Final Negative for FLU A and B antigen Infection due to influenza A or B cannot be ruled out since the antigen present in the sample may be below the detection limit of the test. Lab - Hematology Results 03/14/18 09:40 WBC 6.0 RBC 3.54 L Hgb 10.2 L Hct 30.8 L MCV 87.0 MCH 28.8 MCHC 33.1 RDW 15.5 Plt Count 360 MPV 7.3 Neut % (Auto) 48.3 Lymph % (Auto) 20.6 [place] % (Auto) 21.9 H Eos % (Auto) 8.8 H Baso % (Auto) 0.4 Neut # (Auto) 2.9 Lymph # (Auto) 1.2 [place] # (Auto) 1.3 H Eos # (Auto) 0.5 H Baso # (Auto) 0.0 WBC Differential . Differential Comment Auto diff final Lab - Chemistry Results 03/13/18 03/13/18 03/14/18 16:57 20:49 08:20 Sodium Potassium Chloride Carbon Dioxide Anion Gap BUN Creatinine Estimated GFR POC Glucose 115 H 145 H 113 H Random Glucose Calcium 03/14/18 03/14/1803/14/18 09:40 13:12 18:06 Sodium 138 Potassium 3.9 Chloride 103 Carbon Dioxide 26.0 Anion Gap 9 BUN 6 L Creatinine 0.73 Estimated GFR 79 L POC Glucose 123 H 100 Random Glucose 110 H Calcium 8.6 03/14/18 03/15/18 03/15/18 22:14 08:13 12:26 Sodium Potassium Chloride Carbon Dioxide Anion Gap BUN Creatinine Estimated GFR POC Glucose 121 H 113 H 102 Random Glucose Calcium Imaging: ITS Impressions Chest X-Ray 03/12/18 21:28 CONCLUSION: 1. Chronic interstitial prominence with stable left basilar patchy airspace disease. Chest CT 03/13/18 00:00 CONCLUSION: 1. Patchy alveolar pneumonia in the left lower lobe. 2. Chronic bronchiectasis and inflammatory infiltrates of both lungs are otherwise not significantly changed. 3. No significant change upper limits of normal to mildly enlarged mediastinal and hilar lymph nodes area 4. Tiny pericardial effusion. Coronary artery calcification. Physical Exam: PHYSICAL EXAMINATION: GENERAL: No acute distress. Awake and alert. HEENT: Head is atraumatic. Extraocular movements grossly intact, pupils reactive to light. No icterus. Oropharynx: Moist mucosa without visible lesions. NECK: No adenopathy or swelling. LUNGS: Bilateral rales diffuse. Slightly better air movement. HEART: Regular rate and rhythm without murmurs, rubs or gallops. ABDOMEN: Bowel sounds present. Soft, no tenderness appreciated. EXTREMITIES: No clubbing, cyanosis or edema. Muscle wasting of the extremities. SKIN: No rash. NEUROLOGIC: calm and cooperative. Assessment and Plan - Plan IMPRESSION: 1. Pneumonia due to Achromobacter. Resistant to cefepime. 2. Positive sputum culture with Aspergillus in addition to gram-negative raghav and Achromobacter and left basilar opacity. RECOMMENDATIONS: 1. Stop voriconazole. Monitor the sputum culture. If aspergillus is recovered on latest sputum culture, will give PO Voriconazole. The Achromobacter is the only organism growing on repeat sputum. 2. Continue piperacillin/tazobactam. 3. Continue Levaquin. 4. Stop vancomycin. 5. Monitor temperature. 6. Monitor the clinical status.
--- NOTE | 2018-03-15 19:20 | P.PNPL ---
Subjective Interval history: 69 YOWF with Bronchiectesis, Pseudomonas inf found to have Aspergillus Breathing better Cough with sputum Off Voriconazole Physical Exam Vital signs: Vital Signs 03/14/18 19:47 03/14/18 20:54 03/15/18 00:00 Temperature 99.8 F H 99.1 F Pulse Rate 80 75 84 Respiratory Rate 19 18 17 Blood Pressure 121/70 119/70 Pulse Oximetry 97 98 97 03/15/18 00:12 03/15/18 04:00 03/15/18 04:21 Temperature 98.8 F Pulse Rate 91 H 82 86 Respiratory Rate 18 16 16 Blood Pressure 118/66 Pulse Oximetry 98 03/15/18 07:00 03/15/18 07:51 03/15/18 08:00 Temperature 98.3 F Pulse Rate 81 83 Respiratory Rate 16 18 Blood Pressure 123/59 L Pulse Oximetry 98 95 03/15/18 09:00 03/15/18 11:00 03/15/18 12:00 Temperature 98.8 F Pulse Rate 84 92 H 81 Respiratory Rate 16 20 Blood Pressure 108/57 L Pulse Oximetry 96 03/15/18 15:50 03/15/18 16:00 Temperature 98.5 F Pulse Rate 81 91 H Respiratory Rate 20 20 Blood Pressure 118/63 Pulse Oximetry 96 Intake & Output 03/15/18 03/15/18 03/16/18 06:59 18:59 06:59 Intake Total 700 / 700 700 / 700 Balance 700 / 700 700 / 700 Intake: IV 700 / 700 700 / 700 Levaquin 750 mg Premix Inj 150 150 / 150 ML @ 100 mls/hr IV.SIG Q24H [facility] Rx#:[id number] Zosyn 4.5 GM Premix 4.5 gm In 100 / 100 200 / 200 100 ml @ 200 mls/hr IV.SIG Q6H [facility] Rx#:[id number] Vancomycin Inj 1,000 MG In NS 500 / 500 250 / 250 Inj 250 ML @ 250 mls/hr IV.SIG Q8H [facility] Rx#:[id number] VFend Inj 280 MG In NS Inj 100 100 / 100 100 / 100 ML @ 100 mls/hr IV.SIG Q12H [facility] Rx#:[id number] Other: Date of Last Bowel Movement 03/13/18 03/13/18 GENERAL: Elderly WF,NAD SKIN: Warm and dry. HEAD: Normocephalic. EYES: No scleral icterus. No injection or drainage. NECK: Supple, trachea midline. No JVD or lymphadenopathy. CARDIOVASCULAR: Regular rate and rhythm without murmurs, gallops, or rubs. RESPIRATORY: Breath sounds equal bilaterally. No accessory muscle use. GASTROINTESTINAL: Abdomen soft, non-tender, nondistended. MUSCULOSKELETAL: No cyanosis, or edema. BACK: Nontender without obvious deformity. No CVA tenderness. Assessment and Plan - Plan IMPRESSION: 1. Bronchiectasis. 2. Aspergillus infection. 3. Pseudomonas infection. 4. Chronic obstructive pulmonary disease. 5. Arthritis. 6. Hypothyroidism. PLAN: Cont Abx per ID Zosyn and Levaquin Check cultures Aerosol nebs use Acapella will FU in AM.
[2018-03-15] MEDS ORDERED: Pharmacy Ordered Lab Info OTHER ONE (19:45)
[2018-03-16] MEDS: Piperacil/Tazo 4.5 GM Premix 4.5 GM/100 ML BAG IV.SIG SCH ×4 (02:41→22:03)
[2018-03-16] MEDS: Insulin NovoLOG Aspart Correctional Sugar Inj SQ SCH ×5 (02:44→22:03)
[2018-03-16] MEDS: Heparin - SQ 10,000 UNITS/ML Vial SQ SCH ×2 (05:15→17:14)
[2018-03-16] MEDS: Levothyroxine 100 MCG Tablet PO SCH (05:16)
[2018-03-16] MEDS: Senna/Docusate Sodium 8.6/50 MG Tablet PO SCH ×2 (08:59→22:04)
[2018-03-16] MEDS: Lactobacillus Acidophilus/L. Spores Tablet PO SCH ×3 (08:59→17:32)
[2018-03-16] MEDS: amLODIPine 5 MG Tablet PO SCH (08:59)
--- NOTE | 2018-03-16 12:02 | P.PNIM ---
Subjective Interval history: Patient reports possible slight improvement. She still not functional due to respiratory distress with exertion, but feels that this may have slightly proved compared to yesterday. No other new complaints today. Physical Exam Vital signs: Vital Signs 03/15/18 15:50 03/15/18 16:00 03/15/18 20:00 Temperature 98.5 F 98.7 F Pulse Rate 81 91 H 93 H Respiratory Rate 20 20 16 Blood Pressure 118/63 135/63 Pulse Oximetry 96 95 03/15/18 20:08 03/15/18 22:32 03/16/18 01:04 Temperature Pulse Rate 91 H 86 Respiratory Rate 20 18 Blood Pressure Pulse Oximetry 96 03/16/18 03:52 03/16/18 04:00 03/16/18 08:00 Temperature 98.5 F Pulse Rate 86 82 Respiratory Rate 18 18 Blood Pressure 130/62 Pulse Oximetry 100 97 03/16/18 08:04 03/16/18 11:24 Temperature 98.2 F 98.7 F Pulse Rate 87 88 Respiratory Rate 20 20 Blood Pressure 107/54 L 140/65 Pulse Oximetry 99 98 Intake & Output 03/15/18 03/16/18 03/16/18 18:59 06:59 18:59 Intake Total 700 / 700 200 / 200 250 / 250 Balance 700 / 700 200 / 200 250 / 250 Intake: IV 700 / 700 200 / 200 250 / 250 Levaquin 750 mg Premix Inj 150 150 / 150 150 / 150 ML @ 100 mls/hr IV.SIG Q24H [facility] Rx#:[id number] Zosyn 4.5 GM Premix 4.5 gm In 200 / 200 200 / 200 100 / 100 100 ml @ 200 mls/hr IV.SIG Q6H [facility] Rx#:[id number] Vancomycin Inj 1,000 MG In NS 250 / 250 Inj 250 ML @ 250 mls/hr IV.SIG Q8H [facility] Rx#:[id number] VFend Inj 280 MG In NS Inj 100 100 / 100 ML @ 100 mls/hr IV.SIG Q12H [facility] Rx#:[id number] Other: Date of Last Bowel Movement 03/13/18 03/13/18 03/13/18 Narrative: GENERAL: NAD, A&Ox3 HEAD: Normocephalic. NECK: Supple, trachea midline. No lymphadenopathy. EYES: No scleral icterus. No injection or drainage. CARDIOVASCULAR: Regular rate and rhythm without murmurs, gallops, or rubs. RESPIRATORY: Breath sounds equal bilaterally. No accessory muscle use. Bilateral rhonchi and crackles GASTROINTESTINAL: Abdomen soft, non-tender, nondistended. MUSCULOSKELETAL: No cyanosis, or edema. SKIN: Warm and dry. NEURO: No focal neurological deficits. Results - Labs CBC & Chem 7: 03/14/18 09:40 03/14/18 09:40 Laboratory Results - last 24 hr 03/15/18 03/15/18 03/15/18 12:26 17:45 21:02 POC Glucose 102 117 H 137 H 03/16/18 03/16/18 02:39 09:02 POC Glucose 120 H 96 Microbiology 03/12/18 21:40 Blood - Peripheral Aerobic Blood Culture - Preliminary No growth in 4 days 03/12/18 21:40 Blood - Peripheral Anaerobic Blood Culture - Preliminary No growth in 4 days 03/12/18 21:30 Blood - Peripheral Aerobic Blood Culture - Preliminary No growth in 4 days 03/12/18 21:30 Blood - Peripheral Anaerobic Blood Culture - Preliminary No growth in 4 days 03/13/18 08:50 Sputum - Expectorated Sputum Gram Stain - Final 03/13/18 08:50 Sputum - Expectorated Sputum Sputum Culture - Final Achromobacter xylosox/denitri Assessment and Plan - Assessment (1) Febrile illness Code(s): R50.9 - Fever, unspecified Status: Acute (2) Failure of outpatient treatment Code(s): Z78.9 - Other specified health status Status: Acute (3) Infiltrate of lung present on chest x-ray Code(s): R91.8 - Other nonspecific abnormal finding of lung field Status: Acute (4) Bronchiectasis Code(s): J47.9 - Bronchiectasis, uncomplicated Status: Chronic (5) Asthma Code(s): J45.909 - Unspecified asthma, uncomplicated Status: Chronic - Plan 67-year-old female admitted secondary to fever with pre-existing chronic pneumonia. Known pre-existing history of Pseudomonas infection currently under treatment with cefepime and Cipro as an outpatient. New diagnosis of pulmonary aspergillosis. Chronic Pseudomonas infection Bronchiectasis with Achromobacter Pulmonary aspergillosis Pulmonology following ID following Continue Levaquin Continue vancomycin Continue Zosyn Continue voriconazole Probiotics COPD Asthma Contributory to patient's hypoxia Patient has been on 2 L nasal cannula at home Continue baseline inhalers Pulmonology following Hypertension Continue baseline treatment Follow blood pressures Adjust treatments as needed Diabetes mellitus type 2 Follow blood sugars Insulin sliding scale Diabetic diet Hypothyroidism Continue baseline treatments Follow-up as an outpatient DVT prophylaxis Heparin Discharge Planning Respiratory status needs improvement prior to discharge PICC with outpatient antibiotics anticipated at discharge
[2018-03-16] MEDS: Nystatin Liq 500,000 UNIT/5 ML UDC SWISH-SWAL SCH ×2 (17:32→22:03)
[2018-03-16] MEDS: MethylPREDNISolone Sod Succinate Inj 40 MG/ML Vial IV.PUSH SCH (22:02)
[2018-03-17] MEDS: Piperacil/Tazo 4.5 GM Premix 4.5 GM/100 ML BAG IV.SIG SCH ×4 (03:34→19:53)
[2018-03-17] MEDS: Insulin NovoLOG Aspart Correctional Sugar Inj SQ SCH ×5 (04:17→21:24)
[2018-03-17] MEDS: Levothyroxine 100 MCG Tablet PO SCH (05:53)
[2018-03-17] MEDS: Heparin - SQ 10,000 UNITS/ML Vial SQ SCH ×2 (05:53→18:32)
[2018-03-17] MEDS: MethylPREDNISolone Sod Succinate Inj 40 MG/ML Vial IV.PUSH SCH ×3 (05:53→21:24)
[2018-03-17 08:33] LABS: Baso % (Auto) 0.9 % (0.0-2.0); Eos % (Auto) 0.5 % (0.0-4.0); Hematocrit 29.8 % (35.0-46.0); Hemoglobin 9.8 gm/dL (11.6-15.3); Lymph # (Auto) 0.9 th/mm3 (1.0-4.8); Lymph % (Auto) 22.8 % (9.0-44.0); Mean Corpuscular HGB Conc 32.7 % (32.0-36.0); Mean Corpuscular Hemoglobin 28.1 pg (27.0-34.0); Mean Corpuscular Volume 85.7 fL (80.0-100.0); Mean Platelet Volume 7.3 fL (7.0-11.0); Mono # (Auto) 0.1 th/mm3 (0.0-0.9); Mono % (Auto) 2.2 % (0.0-8.0); Neut # (Auto) 2.7 th/mm3 (1.8-7.7); Neut % (Auto) 73.6 % (16.0-70.0); Platelet Count 441 th/mm3 (150-450); Red Blood Count 3.48 mil/mm3 (4.00-5.30); Red Cell Distribution Width 15.2 % (11.6-17.2); White Blood Count 3.7 th/mm3 (4.0-11.0)
[2018-03-17 08:59] LABS: Albumin 2.7 g/dL (3.4-5.0); Anion Gap 8 meq/L (5-15); Aspartate Aminotransferase 69 U/L (15-37); Blood Urea Nitrogen 10 mg/dL (7-18); Calcium 9.3 mg/dL (8.5-10.1); Chloride 100 meq/L (98-107); Glomerular Filtration Rate Greater Than 89 mL/min (>89); Glucose,Random 165 mg/dL (74-106); Potassium 3.9 meq/L (3.5-5.1); Sodium 135 meq/L (136-145)
[2018-03-17 09:00] LABS: Alanine Aminotransferase 180 U/L (10-53)
[2018-03-17 09:02] LABS: Alkaline Phosphatase 437 U/L (45-117); Total Protein 7.7 g/dL (6.4-8.2)
[2018-03-17] MEDS: Senna/Docusate Sodium 8.6/50 MG Tablet PO SCH ×2 (09:57→21:25)
[2018-03-17] MEDS: amLODIPine 5 MG Tablet PO SCH (09:57)
[2018-03-17] MEDS: Nystatin Liq 500,000 UNIT/5 ML UDC SWISH-SWAL SCH ×4 (09:57→21:24)
[2018-03-17] MEDS: Lactobacillus Acidophilus/L. Spores Tablet PO SCH ×3 (09:57→18:33)
--- NOTE | 2018-03-17 12:46 | P.PNID ---
Subjective Remarks: Patient says that she continues to feel better. Mentioned that she felt feverish last night. Denies chills. No significant cough. Afebrile. On oxygen via nasal cannula. Past Medical History: PAST MEDICAL HISTORY: COPD, bronchiectasis, asthma, diabetes mellitus, hypertension, hypothyroidism, osteopenia, Pseudomonas aeruginosa pulmonary infection, bilateral knee replacements, tubal ligation. Allergies/Adverse Reactions: Allergies No Known Allergies Allergy (Verified 03/12/18 21:02) Objective Vital Signs 03/16/18 14:12 03/16/18 16:50 03/16/18 17:38 Temperature 97.7 F Pulse Rate 94 H 83 90 Respiratory Rate 18 20 20 Blood Pressure 142/65 H Pulse Oximetry 94 L 94 L 96 03/16/18 19:03 03/17/18 00:00 03/17/18 04:00 Temperature 99.4 F 97.7 F Pulse Rate 90 77 68 Respiratory Rate 18 18 18 Blood Pressure 115/63 114/67 Pulse Oximetry 98 99 03/17/18 08:00 03/17/18 08:57 03/17/18 12:00 Temperature 97.9 F 98.1 F Pulse Rate 74 92 H 95 H Respiratory Rate 18 18 18 Blood Pressure 124/71 132/65 Pulse Oximetry 98 92 L 03/17/18 12:26 Temperature Pulse Rate 82 Respiratory Rate 18 Blood Pressure Pulse Oximetry Intake & Output 03/16/18 03/17/18 03/17/18 18:59 06:59 18:59 Intake Total 350 / 350 350 / 350 Balance 350 / 350 350 / 350 Intake: IV 350 / 350 350 / 350 Levaquin 750 mg Premix Inj 150 150 / 150 150 / 150 ML @ 100 mls/hr IV.SIG Q24H [facility] Rx#:[id number] Zosyn 4.5 GM Premix 4.5 gm In 200 / 200 200 / 200 100 ml @ 200 mls/hr IV.SIG Q6H [facility] Rx#:[id number] Other: Date of Last Bowel Movement 03/13/18 03/16/18 03/12/18 21:40 Blood - Peripheral Aerobic Blood Culture - Final No growth in 5 days 03/12/18 21:40 Blood - Peripheral Anaerobic Blood Culture - Final No growth in 5 days 03/12/18 21:30 Blood - Peripheral Aerobic Blood Culture - Final No growth in 5 days 03/12/18 21:30 Blood - Peripheral Anaerobic Blood Culture - Final No growth in 5 days 03/16/18 17:28 Sputum - Expectorated Sputum Gram Stain - Final 03/16/18 17:28 Sputum - Expectorated Sputum Sputum Culture - Pending 03/13/18 08:50 Sputum - Expectorated Sputum Gram Stain - Final 03/13/18 08:50 Sputum - Expectorated Sputum Sputum Culture - Final Achromobacter xylosox/denitri Lab - Hematology Results 03/17/18 07:01 WBC 3.7 L RBC 3.48 L Hgb 9.8 L Hct 29.8 L MCV 85.7 MCH 28.1 MCHC 32.7 RDW 15.2 Plt Count 441 MPV 7.3 Neut % (Auto) 73.6 H Lymph % (Auto) 22.8 [place] % (Auto) 2.2 Eos % (Auto) 0.5 Baso % (Auto) 0.9 Neut # (Auto) 2.7 Lymph # (Auto) 0.9 L [place] # (Auto) 0.1 Eos # (Auto) 0.0 Baso # (Auto) 0.0 WBC Differential . Differential Comment Auto diff final Lab - Chemistry Results 03/15/18 03/15/18 03/16/18 17:45 21:02 02:39 Sodium Potassium Chloride Carbon Dioxide Anion Gap BUN Creatinine Estimated GFR POC Glucose 117 H 137 H 120 H Random Glucose Calcium Total Bilirubin AST ALT Alkaline Phosphatase Total Protein Albumin 03/16/18 03/16/18 03/16/18 09:02 12:00 17:26 Sodium Potassium Chloride Carbon Dioxide Anion Gap BUN Creatinine Estimated GFR POC Glucose 96 86 99 Random Glucose Calcium Total Bilirubin AST ALT Alkaline Phosphatase Total Protein Albumin 03/16/18 03/17/18 03/17/18 20:40 04:16 07:01 Sodium 135 L Potassium 3.9 Chloride 100 Carbon Dioxide 27.0 Anion Gap 8 BUN 10 Creatinine 0.64 Estimated GFR Greater than 89 POC Glucose 155 H 148 H Random Glucose 165 H Calcium 9.3 Total Bilirubin 0.4 AST 69 H ALT 180 H Alkaline Phosphatase 437 H Total Protein 7.7 Albumin 2.7 L 03/17/18 03/17/18 08:22 12:00 Sodium Potassium Chloride Carbon Dioxide Anion Gap BUN Creatinine Estimated GFR POC Glucose 129 H 258 H Random Glucose Calcium Total Bilirubin AST ALT Alkaline Phosphatase Total Protein Albumin Imaging: ITS Impressions Chest X-Ray 03/12/18 21:28 CONCLUSION: 1. Chronic interstitial prominence with stable left basilar patchy airspace disease. Chest CT 03/13/18 00:00 CONCLUSION: 1. Patchy alveolar pneumonia in the left lower lobe. 2. Chronic bronchiectasis and inflammatory infiltrates of both lungs are otherwise not significantly changed. 3. No significant change upper limits of normal to mildly enlarged mediastinal and hilar lymph nodes area 4. Tiny pericardial effusion. Coronary artery calcification. Physical Exam: PHYSICAL EXAMINATION: GENERAL: No acute distress. Awake and alert. HEENT: Extraocular movements grossly intact, pupils reactive to light. No icterus. Oropharynx: Moist mucosa without visible lesions. NECK: No adenopathy or swelling. LUNGS: Bilateral rales diffuse. HEART: Regular rate and rhythm without murmurs, rubs or gallops. ABDOMEN: Bowel sounds present. Soft, no tenderness appreciated. EXTREMITIES: No clubbing, cyanosis or edema. Muscle wasting of the extremities. SKIN: No rash. NEUROLOGIC: calm and cooperative. Assessment and Plan - Plan IMPRESSION: 1. Pneumonia due to Achromobacter. Resistant to cefepime. 2. Positive sputum culture with Aspergillus in addition to Achromobacter and left basilar opacity. Aspergillus is probably contaminant. RECOMMENDATIONS: 1. Continue piperacillin/tazobactam. If she continues to improve can consider discharge on IV course of piperacillin/ tazobactam for 21 days. 3. Continue Levaquin. Monitor liver function tests. 4. Monitor temperature. Discussed with Dr. Arden Izquierdo.
--- NOTE | 2018-03-17 13:30 | MB ---
cc: Aramis Izquierdo MD DATE: 03/17/2018 HISTORY OF PRESENT ILLNESS: Ms. Hernandez is a 67-year-old white female, well known to me with chronic asthma, bronchiectasis, and chronic infection with pseudomonas. She had recently been seen by Dr. Payal Jackson as an outpatient, and treated with Cipro and cefepime, as we had not been able to control the chronic infection with pseudomonas. While receiving this therapy, she developed increased cough and congestion, purulent sputum, and then a temperature to 102 degrees. She presented to the emergency room initially, and was treated with an outpatient regimen, but within 24-48 hours returned with a temperature of 102, and was admitted. Chest x-ray initially showed chronic changes, but a CT scan revealed a new more extensive left lower lobe infiltrate. SOCIAL HISTORY: She has never smoked cigarettes. She does have a difficult environment. [place] with [place], chickens, dogs, and cats. The domestic animals are in the house. She has a known history of multiple allergies. She has recently been seen by Dr. Carrillo and some lab testing for RAST are pending. He did not do skin testing due to the severity of her asthma. She is , lives with her . No alcohol use. No illicit drug use. 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 PAST MEDICAL HISTORY: In addition, she has had diabetes, history of a knee replacement, hypothyroidism, hypertension. ALLERGIES TO MEDICINES: None, multiple inhalation allergies. CURRENT MEDICATIONS: Reviewed in the EMR. PHYSICAL EXAMINATION: GENERAL: She is awake, alert, very comfortable at rest, sitting up in a chair on nasal oxygen. VITAL SIGNS: O2 saturations 98%, afebrile, pulse 90, respirations 16-18, blood pressure 130/60. HEENT: Mucous membranes are moist. NECK: Veins are flat. LUNGS: Minimal scattered wheezing. No rhonchi. HEART: Regular rhythm. EXTREMITIES: No edema, no calf tenderness. No cyanosis or clubbing. LABORATORY DATA: Cultures include blood with no growth. Influenza A and B are negative. She is now growing Achromobacter and has had a light growth of aspergillus, which is new. I do not recall that she has grown fungus in the past, and we have done multiple cultures for AFB in the past, which have been negative. White cell count is 3700, not a predominance of eosinophils, predominantly bands. Hemoglobin is 10. BUN and creatinine are normal. Blood sugars have been running a little high, and liver functions were elevated on 03/17/2018. ASSESSMENT AND PLAN: Ms. Hernandez has a longstanding history of asthma, also complicated by bronchiectasis and previously chronic Pseudomonas infection. It looks as though the course of outpatient IV cefepime was Cipro, successfully treated the Pseudomonas problem, but now Achromobacter is growing, which may be resistant. Dr. Mohamud is seeing her for infectious disease. We discussed her care and will continue the current IV antibiotic therapy. I have added IV corticosteroids. We will continue routine aerosolized bronchodilators. I have also sent an IgE level, aspergillus antibodies, and will do a bedside spirometry to assess her asthma. I have had a lengthy review and discussion with Minal about this plan of therapy. I am also concerned that the environment in which she lives may be a significant contributing factor. We will wait to see what the current lab tests show, and then also follow up with Dr. Carrillo with regard to potential allergies and sensitivities that are contributing to this problem. Further diagnostic and/or therapeutic intervention will depend on response and ongoing clinical course. RMD IMELDA Toth/nando , 01:03 PM , 01:13 PM
--- NOTE | 2018-03-17 16:03 | P.PNIM ---
Subjective Interval history: 67-year-old female with a past medical history significant for known lung Pseudomonas infection treated as an outpatient with IV cefepime and Cipro, COPD , diabetes mellitus, hypertension and hypothyroidism presents to the emergency department for the evaluation of fevers. The patient was recently hospitalized for shortness of breath and fevers and was evaluated by pulmonology. She was discharged to home to continue with cefepime and ciprofloxacin. She reports her fevers returned today with a T-max of 104 orally at home. She states her shortness of breath is at baseline and is mildly improved with nebulizer treatments. The patient denies any chest pain. No abdominal pain. No nausea/ vomiting/diarrhea. No focal neurologic deficits. 1124 Patient is seen sitting up in bed. Reports that she feels like she is breathing close to her baseline and without difficulty. Nasal cannula in place. She has been having low-grade fevers since discharge and last night decided to come in after it went up to 104. She reports exposure to black mold in her workplace about 10 years ago and is concerned that this might be affecting her now. Reports that she did have her house tested for mold and there was not any. She does say that she needs a new nebulizer machine as hers is very old but that she has changed the mask and tubing. Also reports frequently changing O2 tubing. No fever or chills this morning. No chest pain. Baseline S OB. No nausea vomiting or diarrhea. 03-14 Patient seen sitting up in bed. No new complaint of shortness of breath. She has had some yellowish sputum. No fever or chills. 11- No significant improvement in respiratory status. Exertion patient becomes severely dyspneic. Resting in bed with oxygen she is stable. 11 Patient reports possible slight improvement. She still not functional due to respiratory distress with exertion, but feels that this may have slightly proved compared to yesterday. No other new complaints today. 03-17 SEEN BY PULMONARY AND ID NOT CLEARED FOR DISCHARGE YET ALREADY HAS RIGHT UE PICC LINE IN PLACE AM LABS CONTINUE CURRENT TREATMENTS WILL PROBABLY NEED THE [facility] FOR ANTIBIOTICS Physical Exam Vital signs: Vital Signs 03/16/18 16:50 03/16/18 17:38 03/16/18 19:03 Temperature 97.7 F Pulse Rate 83 90 90 Respiratory Rate 20 20 18 Blood Pressure 142/65 H Pulse Oximetry 94 L 96 03/17/18 00:00 03/17/18 04:00 03/17/18 08:00 Temperature 99.4 F 97.7 F 97.9 F Pulse Rate 77 68 74 Respiratory Rate 18 Blood Pressure 115/63 114/67 124/71 Pulse Oximetry 98 99 98 03/17/18 08:57 03/17/18 12:00 03/17/18 12:26 Temperature 98.1 F Pulse Rate 92 H 95 H 82 Respiratory Rate 18 Blood Pressure 132/65 Pulse Oximetry 92 L 03/17/18 15:11 03/17/18 15:12 Temperature Pulse Rate 98 H Respiratory Rate 18 Blood Pressure Pulse Oximetry 97 Intake & Output 03/16/18 03/17/18 03/17/18 18:59 06:59 18:59 Intake Total 350 / 350 350 / 350 Balance 350 / 350 350 / 350 Intake: IV 350 / 350 350 / 350 Levaquin 750 mg Premix Inj 150 150 / 150 150 / 150 ML @ 100 mls/hr IV.SIG Q24H [facility] Rx#:[id number] Zosyn 4.5 GM Premix 4.5 gm In 200 / 200 200 / 200 100 ml @ 200 mls/hr IV.SIG Q6H [facility] Rx#:[id number] Other: Date of Last Bowel Movement 03/13/18 03/16/18 Narrative: GENERAL: NAD, A&Ox3 HEAD: Normocephalic. NECK: Supple, trachea midline. No lymphadenopathy. EYES: No scleral icterus. No injection or drainage. CARDIOVASCULAR: Regular rate and rhythm without murmurs, gallops, or rubs. RESPIRATORY: Breath sounds equal bilaterally. No accessory muscle use. Bilateral rhonchi and crackles GASTROINTESTINAL: Abdomen soft, non-tender, nondistended. MUSCULOSKELETAL: No cyanosis, or edema. SKIN: Warm and dry. NEURO: No focal neurological deficits. Results - Labs CBC & Chem 7: 03/17/18 07:01 03/17/18 07:01 Laboratory Results - last 24 hr 03/16/18 03/16/18 03/17/18 17:26 20:40 04:16 WBC RBC Hgb Hct MCV MCH MCHC RDW Plt Count MPV Neut % (Auto) Lymph % (Auto) [place] % (Auto) Eos % (Auto) Baso % (Auto) Neut # (Auto) Lymph # (Auto) [place] # (Auto) Eos # (Auto) Baso # (Auto) WBC Differential Differential Comment Sodium Potassium Chloride Carbon Dioxide Anion Gap BUN Creatinine Estimated GFR POC Glucose 99 155 H 148 H Random Glucose Calcium Total Bilirubin AST ALT Alkaline Phosphatase Total Protein Albumin 03/17/18 03/17/18 03/17/18 07:01 07:01 08:22 WBC 3.7 L RBC 3.48 L Hgb 9.8 L Hct 29.8 L MCV 85.7 MCH 28.1 MCHC 32.7 RDW 15.2 Plt Count 441 MPV 7.3 Neut % (Auto) 73.6 H Lymph % (Auto) 22.8 [place] % (Auto) 2.2 Eos % (Auto) 0.5 Baso % (Auto) 0.9 Neut # (Auto) 2.7 Lymph # (Auto) 0.9 L [place] # (Auto) 0.1 Eos # (Auto) 0.0 Baso # (Auto) 0.0 WBC Differential . Differential Comment Auto diff final Sodium 135 L Potassium 3.9 Chloride 100 Carbon Dioxide 27.0 Anion Gap 8 BUN 10 Creatinine 0.64 Estimated GFR Greater than 89 POC Glucose 129 H Random Glucose 165 H Calcium 9.3 Total Bilirubin 0.4 AST 69 H ALT 180 H Alkaline Phosphatase 437 H Total Protein 7.7 Albumin 2.7 L 03/17/18 12:00 WBC RBC Hgb Hct MCV MCH MCHC RDW Plt Count MPV Neut % (Auto) Lymph % (Auto) [place] % (Auto) Eos % (Auto) Baso % (Auto) Neut # (Auto) Lymph # (Auto) [place] # (Auto) Eos # (Auto) Baso # (Auto) WBC Differential Differential Comment Sodium Potassium Chloride Carbon Dioxide Anion Gap BUN Creatinine Estimated GFR POC Glucose 258 H Random Glucose Calcium Total Bilirubin AST ALT Alkaline Phosphatase Total Protein Albumin Microbiology 03/12/18 21:40 Blood - Peripheral Aerobic Blood Culture - Final No growth in 5 days 03/12/18 21:40 Blood - Peripheral Anaerobic Blood Culture - Final No growth in 5 days 03/12/18 21:30 Blood - Peripheral Aerobic Blood Culture - Final No growth in 5 days 03/12/18 21:30 Blood - Peripheral Anaerobic Blood Culture - Final No growth in 5 days 03/16/18 17:28 Sputum - Expectorated Sputum Gram Stain - Final - Imaging Chest X-Ray 03/12/18 21:28 CONCLUSION: 1. Chronic interstitial prominence with stable left basilar patchy airspace disease. Chest CT 03/13/18 00:00 CONCLUSION: 1. Patchy alveolar pneumonia in the left lower lobe. 2. Chronic bronchiectasis and inflammatory infiltrates of both lungs are otherwise not significantly changed. 3. No significant change upper limits of normal to mildly enlarged mediastinal and hilar lymph nodes area 4. Tiny pericardial effusion. Coronary artery calcification. Assessment and Plan - Assessment (1) Febrile illness Code(s): R50.9 - Fever, unspecified Status: Acute (2) Failure of outpatient treatment Code(s): Z78.9 - Other specified health status Status: Acute (3) Infiltrate of lung present on chest x-ray Code(s): R91.8 - Other nonspecific abnormal finding of lung field Status: Acute (4) Bronchiectasis Code(s): J47.9 - Bronchiectasis, uncomplicated Status: Chronic (5) Asthma Code(s): J45.909 - Unspecified asthma, uncomplicated Status: Chronic - Plan 67-year-old female admitted secondary to fever with pre-existing chronic pneumonia. Known pre-existing history of Pseudomonas infection currently under treatment with cefepime and Cipro as an outpatient. New diagnosis of pulmonary aspergillosis. Chronic Pseudomonas infection Bronchiectasis with Achromobacter Pulmonary aspergillosis Pulmonology following ID following Continue Levaquin Continue Zosyn VANCO AND VORICONAZOLE HAVE BEEN DISCONTINUED Probiotics COPD Asthma Contributory to patient's hypoxia Patient has been on 2 L nasal cannula at home Continue baseline inhalers Pulmonology following Hypertension Continue baseline treatment Follow blood pressures Adjust treatments as needed Diabetes mellitus type 2 Follow blood sugars Insulin sliding scale Diabetic diet Hypothyroidism Continue baseline treatments Follow-up as an outpatient DVT prophylaxis Heparin Code Status: FULL CODE Discussed Condition With: RN AND PT Discharge Planning: PENDING PULMONARY AND ID CLEARANCE
[2018-03-17] MEDS ORDERED: guaiFENesin 600 MG ER Tablet PO SCH (21:00)
[2018-03-17] MEDS ORDERED: Budesonide-Formoterol 160/4.5 MCG 6 GM Inhaler INH SCH (21:00)
[2018-03-18] MEDS: Piperacil/Tazo 4.5 GM Premix 4.5 GM/100 ML BAG IV.SIG SCH ×4 (02:23→21:58)
[2018-03-18] MEDS: Insulin NovoLOG Aspart Correctional Sugar Inj SQ SCH ×5 (04:10→22:05)
[2018-03-18] MEDS: Heparin - SQ 10,000 UNITS/ML Vial SQ SCH ×2 (04:14→17:44)
[2018-03-18] MEDS: Levothyroxine 100 MCG Tablet PO SCH (05:49)
[2018-03-18] MEDS: MethylPREDNISolone Sod Succinate Inj 40 MG/ML Vial IV.PUSH SCH ×3 (05:49→21:58)
[2018-03-18 07:18] LABS: Baso % (Auto) 0.1 % (0.0-2.0); Hematocrit 29.2 % (35.0-46.0); Hemoglobin 9.4 gm/dL (11.6-15.3); Lymph # (Auto) 1.4 th/mm3 (1.0-4.8); Lymph % (Auto) 10.7 % (9.0-44.0); Mean Corpuscular HGB Conc 32.2 % (32.0-36.0); Mean Corpuscular Hemoglobin 27.6 pg (27.0-34.0); Mean Corpuscular Volume 85.8 fL (80.0-100.0); Mean Platelet Volume 7.1 fL (7.0-11.0); Mono # (Auto) 0.5 th/mm3 (0.0-0.9); Mono % (Auto) 3.8 % (0.0-8.0); Neut # (Auto) 11.1 th/mm3 (1.8-7.7); Neut % (Auto) 85.4 % (16.0-70.0); Platelet Count 460 th/mm3 (150-450); Red Cell Distribution Width 15.3 % (11.6-17.2)
[2018-03-18 07:50] LABS: Alanine Aminotransferase 151 U/L (10-53); Albumin 2.5 g/dL (3.4-5.0); Anion Gap 8 meq/L (5-15); Aspartate Aminotransferase 50 U/L (15-37); Blood Urea Nitrogen 12 mg/dL (7-18); Calcium 8.8 mg/dL (8.5-10.1); Carbon Dioxide 28.2 meq/L (21.0-32.0); Chloride 102 meq/L (98-107); Glucose,Random 183 mg/dL (74-106); Magnesium 2.5 mg/dL (1.5-2.5); Phosphorus 3.6 mg/dL (2.5-4.9); Potassium 4.1 meq/L (3.5-5.1); Sodium 138 meq/L (136-145)
[2018-03-18 07:59] LABS: Alkaline Phosphatase 332 U/L (45-117); Free T4 (Free Thyroxine) 1.48 ng/dL (0.76-1.46); Glomerular Filtration Rate 84 mL/min (>89); Total Protein 7.1 g/dL (6.4-8.2)
[2018-03-18 08:29] LABS: Lymphocytes 9 % (9-44); Monocytes 5 % (0-8)
[2018-03-18 08:30] LABS: Ovalocytes 1+; Platelet Morphology Normal (Normal)
--- NOTE | 2018-03-18 09:25 | P.PNIM ---
Subjective Interval history: 67-year-old female with a past medical history significant for known lung Pseudomonas infection treated as an outpatient with IV cefepime and Cipro, COPD , diabetes mellitus, hypertension and hypothyroidism presents to the emergency department for the evaluation of fevers. The patient was recently hospitalized for shortness of breath and fevers and was evaluated by pulmonology. She was discharged to home to continue with cefepime and ciprofloxacin. She reports her fevers returned today with a T-max of 104 orally at home. She states her shortness of breath is at baseline and is mildly improved with nebulizer treatments. The patient denies any chest pain. No abdominal pain. No nausea/ vomiting/diarrhea. No focal neurologic deficits. [id number] Patient is seen sitting up in bed. Reports that she feels like she is breathing close to her baseline and without difficulty. Nasal cannula in place. She has been having low-grade fevers since discharge and last night decided to come in after it went up to 104. She reports exposure to black mold in her workplace about 10 years ago and is concerned that this might be affecting her now. Reports that she did have her house tested for mold and there was not any. She does say that she needs a new nebulizer machine as hers is very old but that she has changed the mask and tubing. Also reports frequently changing O2 tubing. No fever or chills this morning. No chest pain. Baseline S OB. No nausea vomiting or diarrhea. 11 Patient seen sitting up in bed. No new complaint of shortness of breath. She has had some yellowish sputum. No fever or chills. 11- No significant improvement in respiratory status. Exertion patient becomes severely dyspneic. Resting in bed with oxygen she is stable. 11-27 Patient reports possible slight improvement. She still not functional due to respiratory distress with exertion, but feels that this may have slightly proved compared to yesterday. No other new complaints today. 11-28 SEEN BY PULMONARY AND ID NOT CLEARED FOR DISCHARGE YET ALREADY HAS RIGHT UE PICC LINE IN PLACE AM LABS CONTINUE CURRENT TREATMENTS WILL PROBABLY NEED HHC FOR ANTIBIOTICS 11 STILL HAVING COUGH AND CONGESTION NOT CLEARED FOR DC YET HAS RIGHT UE PICC WILL NEED HHC FOR ANTIBIOTICS CONTINUE CURRENT RXS Physical Exam Vital signs: Vital Signs 03/17/18 12:00 03/17/18 12:26 03/17/18 15:11 Temperature 98.1 F Pulse Rate 95 H 82 98 H Respiratory Rate 18 18 18 Blood Pressure 132/65 Pulse Oximetry 92 L 03/17/18 15:12 03/17/18 16:00 03/17/18 19:03 Temperature 97.4 F L Pulse Rate 93 H 93 H Respiratory Rate 18 20 Blood Pressure 107/59 L Pulse Oximetry 97 97 03/17/18 20:00 03/17/18 23:55 03/18/18 04:00 Temperature 98.6 F 98.3 F 97.8 F Pulse Rate 94 H 82 79 Respiratory Rate 18 18 18 Blood Pressure 119/82 128/67 124/67 Pulse Oximetry 93 L 99 99 03/18/18 08:00 03/18/18 08:34 03/18/18 08:36 Temperature 97.6 F Pulse Rate 94 H 72 Respiratory Rate 24 20 Blood Pressure 134/71 Pulse Oximetry 99 98 Intake & Output 03/17/18 03/18/18 03/18/18 18:59 06:59 18:59 Intake Total 1320 / 1320 930 / 930 Balance 1320 / 1320 930 / 930 Intake: IV 100 / 100 450 / 450 Levaquin 750 mg Premix Inj 150 150 / 150 ML @ 100 mls/hr IV.SIG Q24H [facility] Rx#:[id number] Zosyn 4.5 GM Premix 4.5 gm In 100 / 100 300 / 300 100 ml @ 200 mls/hr IV.SIG Q6H [facility] Rx#:[id number] Oral 1220 / 1220 480 / 480 Other: # Voids 3 2 # Bowel Movements 2 Narrative: GENERAL: NAD, A&Ox3 HEAD: Normocephalic. NECK: Supple, trachea midline. No lymphadenopathy. EYES: No scleral icterus. No injection or drainage. CARDIOVASCULAR: Regular rate and rhythm without murmurs, gallops, or rubs. RESPIRATORY: Breath sounds equal bilaterally. No accessory muscle use. Bilateral rhonchi and crackles GASTROINTESTINAL: Abdomen soft, non-tender, nondistended. MUSCULOSKELETAL: No cyanosis, or edema. SKIN: Warm and dry. NEURO: No focal neurological deficits. Results - Labs CBC & Chem 7: 03/18/18 06:13 03/18/18 06:13 Laboratory Results - last 24 hr 03/17/18 03/17/18 03/17/18 12:00 17:33 20:45 WBC RBC Hgb Hct MCV MCH MCHC RDW Plt Count MPV Prelim Diff (Auto) Neut % (Auto) Lymph % (Auto) [place] % (Auto) Eos % (Auto) Baso % (Auto) Neut # (Auto) Lymph # (Auto) [place] # (Auto) Eos # (Auto) Baso # (Auto) WBC Differential Seg Neuts % (Manual) Band Neuts % (Manual) Lymphocytes % (Manual) Monocytes % (Manual) Abs Neuts (Manual) Differential Comment Platelet Estimate Platelet Morphology Ovalocytes Sodium Potassium Chloride Carbon Dioxide Anion Gap BUN Creatinine Estimated GFR POC Glucose 258 H 172 H 256 H Random Glucose Calcium Phosphorus Magnesium Total Bilirubin AST ALT Alkaline Phosphatase Total Protein Albumin TSH Free T4 03/18/18 03/18/18 03/18/18 04:07 06:13 06:13 WBC 13.0 H D RBC 3.40 L Hgb 9.4 L Hct 29.2 L MCV 85.8 MCH 27.6 MCHC 32.2 RDW 15.3 Plt Count 460 H MPV 7.1 Prelim Diff (Auto) Slide review pending Neut % (Auto) 85.4 H Lymph % (Auto) 10.7 [place] % (Auto) 3.8 Eos % (Auto) 0.0 Baso % (Auto) 0.1 Neut # (Auto) 11.1 H Lymph # (Auto) 1.4 [place] # (Auto) 0.5 Eos # (Auto) 0.0 Baso # (Auto) 0.0 WBC Differential Manual diff final Seg Neuts % (Manual) 77 H Band Neuts % (Manual) 9 H Lymphocytes % (Manual) 9 Monocytes % (Manual) 5 Abs Neuts (Manual) 11.2 H Differential Comment . Platelet Estimate High H Platelet Morphology Normal Ovalocytes 1+ H Sodium 138 Potassium 4.1 Chloride 102 Carbon Dioxide 28.2 Anion Gap 8 BUN 12 Creatinine 0.69 Estimated GFR 84 L POC Glucose 163 H Random Glucose 183 H Calcium 8.8 Phosphorus 3.6 Magnesium 2.5 Total Bilirubin 0.2 AST 50 H ALT 151 H Alkaline Phosphatase 332 H Total Protein 7.1 D Albumin 2.5 L TSH 0.410 Free T4 1.48 H 03/18/18 08:39 WBC RBC Hgb Hct MCV MCH MCHC RDW Plt Count MPV Prelim Diff (Auto) Neut % (Auto) Lymph % (Auto) [place] % (Auto) Eos % (Auto) Baso % (Auto) Neut # (Auto) Lymph # (Auto) [place] # (Auto) Eos # (Auto) Baso # (Auto) WBC Differential Seg Neuts % (Manual) Band Neuts % (Manual) Lymphocytes % (Manual) Monocytes % (Manual) Abs Neuts (Manual) Differential Comment Platelet Estimate Platelet Morphology Ovalocytes Sodium Potassium Chloride Carbon Dioxide Anion Gap BUN Creatinine Estimated GFR POC Glucose 124 H Random Glucose Calcium Phosphorus Magnesium Total Bilirubin AST ALT Alkaline Phosphatase Total Protein Albumin TSH Free T4 Microbiology 03/12/18 21:40 Blood - Peripheral Aerobic Blood Culture - Final No growth in 5 days 03/12/18 21:40 Blood - Peripheral Anaerobic Blood Culture - Final No growth in 5 days 03/12/18 21:30 Blood - Peripheral Aerobic Blood Culture - Final No growth in 5 days 03/12/18 21:30 Blood - Peripheral Anaerobic Blood Culture - Final No growth in 5 days 03/16/18 17:28 Sputum - Expectorated Sputum Gram Stain - Final - Imaging ITS Impressions Chest X-Ray 03/12/18 21:28 CONCLUSION: 1. Chronic interstitial prominence with stable left basilar patchy airspace disease. Chest CT 03/13/18 00:00 CONCLUSION: 1. Patchy alveolar pneumonia in the left lower lobe. 2. Chronic bronchiectasis and inflammatory infiltrates of both lungs are otherwise not significantly changed. 3. No significant change upper limits of normal to mildly enlarged mediastinal and hilar lymph nodes area 4. Tiny pericardial effusion. Coronary artery calcification. Assessment and Plan - Assessment (1) Febrile illness Code(s): R50.9 - Fever, unspecified Status: Acute (2) Failure of outpatient treatment Code(s): Z78.9 - Other specified health status Status: Acute (3) Infiltrate of lung present on chest x-ray Code(s): R91.8 - Other nonspecific abnormal finding of lung field Status: Acute (4) Bronchiectasis Code(s): J47.9 - Bronchiectasis, uncomplicated Status: Chronic (5) Asthma Code(s): J45.909 - Unspecified asthma, uncomplicated Status: Chronic - Plan 67-year-old female admitted secondary to fever with pre-existing chronic pneumonia. Known pre-existing history of Pseudomonas infection currently under treatment with cefepime and Cipro as an outpatient. New diagnosis of pulmonary aspergillosis. Chronic Pseudomonas infection Bronchiectasis with Achromobacter Pulmonary aspergillosis Pulmonology following ID following Continue Levaquin Continue Zosyn VANCO AND VORICONAZOLE HAVE BEEN DISCONTINUED Probiotics COPD Asthma Contributory to patient's hypoxia Patient has been on 2 L nasal cannula at home Continue baseline inhalers Pulmonology following Hypertension Continue baseline treatment Follow blood pressures Adjust treatments as needed Diabetes mellitus type 2 Follow blood sugars Insulin sliding scale Diabetic diet Hypothyroidism Continue baseline treatments Follow-up as an outpatient DVT prophylaxis Heparin HAS NOT BEEN CLEARED BY ID OR PULMONARY YET Code Status: FULL CODE Discussed Condition With: RN AND PT Discharge Planning: PENDING PULMONARY AND ID CLEARANCE
[2018-03-18] MEDS: Senna/Docusate Sodium 8.6/50 MG Tablet PO SCH ×2 (10:06→21:57)
[2018-03-18] MEDS: Lactobacillus Acidophilus/L. Spores Tablet PO SCH ×3 (10:06→17:44)
[2018-03-18] MEDS: Nystatin Liq 500,000 UNIT/5 ML UDC SWISH-SWAL SCH ×4 (10:06→21:58)
[2018-03-18] MEDS: amLODIPine 5 MG Tablet PO SCH (10:06)
--- NOTE | 2018-03-18 16:29 | P.PNID ---
Subjective Remarks: Patient feels okay. Mentioned that she ambulated the hallways a couple times today. She felt a little short of breath after she got back from walking. States that she did not feel chills or feverish last night. No significant cough. Afebrile. On oxygen via nasal cannula. Sputum culture last sent on 03/16 has gram-negative raghav. Past Medical History: PAST MEDICAL HISTORY: COPD, bronchiectasis, asthma, diabetes mellitus, hypertension, hypothyroidism, osteopenia, Pseudomonas aeruginosa pulmonary infection, bilateral knee replacements, tubal ligation. Allergies/Adverse Reactions: Allergies No Known Allergies Allergy (Verified 03/12/18 21:02) Objective Vital Signs 03/17/18 19:03 03/17/18 20:00 03/17/18 23:55 Temperature 98.6 F 98.3 F Pulse Rate 93 H 94 H 82 Respiratory Rate 20 18 18 Blood Pressure 119/82 128/67 Pulse Oximetry 93 L 99 03/18/18 04:00 03/18/18 08:00 03/18/18 08:34 Temperature 97.8 F 97.6 F Pulse Rate 79 94 H 72 Respiratory Rate 18 24 20 Blood Pressure 124/67 134/71 Pulse Oximetry 99 99 03/18/18 08:36 03/18/18 11:59 03/18/18 12:00 Temperature 98.1 F Pulse Rate 100 H 104 H Respiratory Rate 18 22 Blood Pressure 137/63 Pulse Oximetry 98 96 03/18/18 15:11 03/18/18 15:12 Temperature Pulse Rate 72 Respiratory Rate 18 Blood Pressure Pulse Oximetry 99 Intake & Output 03/17/18 03/18/18 03/18/18 18:59 06:59 18:59 Intake Total 1320 / 1320 930 / 930 100 / 100 Balance 1320 / 1320 930 / 930 100 / 100 Intake: IV 100 / 100 450 / 450 100 / 100 Levaquin 750 mg Premix Inj 150 150 / 150 ML @ 100 mls/hr IV.SIG Q24H [facility] Rx#:[id number] Zosyn 4.5 GM Premix 4.5 gm In 100 / 100 300 / 300 100 / 100 100 ml @ 200 mls/hr IV.SIG Q6H [facility] Rx#:[id number] Oral 1220 / 1220 480 / 480 Other: # Voids 3 2 # Bowel Movements 2 03/16/18 17:28 Sputum - Expectorated Sputum Gram Stain - Final 03/16/18 17:28 Sputum - Expectorated Sputum Sputum Culture - Preliminary gram negative rods 03/12/18 21:40 Blood - Peripheral Aerobic Blood Culture - Final No growth in 5 days 03/12/18 21:40 Blood - Peripheral Anaerobic Blood Culture - Final No growth in 5 days 03/12/18 21:30 Blood - Peripheral Aerobic Blood Culture - Final No growth in 5 days 03/12/18 21:30 Blood - Peripheral Anaerobic Blood Culture - Final No growth in 5 days 03/13/18 08:50 Sputum - Expectorated Sputum Gram Stain - Final 03/13/18 08:50 Sputum - Expectorated Sputum Sputum Culture - Final Achromobacter xylosox/denitri Lab - Hematology Results 03/17/18 03/18/18 07:01 06:13 WBC 3.7 L 13.0 H D RBC 3.48 L 3.40 L Hgb 9.8 L 9.4 L Hct 29.8 L 29.2 L MCV 85.7 85.8 MCH 28.1 27.6 MCHC 32.7 32.2 RDW 15.2 15.3 Plt Count 441 460 H MPV 7.3 7.1 Prelim Diff (Auto) Slide review pending Neut % (Auto) 73.6 H 85.4 H Lymph % (Auto) 22.8 10.7 [place] % (Auto) 2.2 3.8 Eos % (Auto) 0.5 0.0 Baso % (Auto) 0.9 0.1 Neut # (Auto) 2.7 11.1 H Lymph # (Auto) 0.9 L 1.4 [place] # (Auto) 0.1 0.5 Eos # (Auto) 0.0 0.0 Baso # (Auto) 0.0 0.0 WBC Differential . Manual diff final Seg Neuts % (Manual) 77 H Band Neuts % (Manual) 9 H Lymphocytes % (Manual) 9 Monocytes % (Manual) 5 Abs Neuts (Manual) 11.2 H Differential Comment Auto diff final . Platelet Estimate High H Platelet Morphology Normal Ovalocytes 1+ H Lab - Chemistry Results 03/16/18 03/16/18 03/17/18 17:26 20:40 04:16 Sodium Potassium Chloride Carbon Dioxide Anion Gap BUN Creatinine Estimated GFR POC Glucose 99 155 H 148 H Random Glucose Calcium Phosphorus Magnesium Total Bilirubin AST ALT Alkaline Phosphatase Total Protein Albumin TSH Free T4 03/17/18 03/17/18 03/17/18 07:01 08:22 12:00 Sodium 135 L Potassium 3.9 Chloride 100 Carbon Dioxide 27.0 Anion Gap 8 BUN 10 Creatinine 0.64 Estimated GFR Greater than 89 POC Glucose 129 H 258 H Random Glucose 165 H Calcium 9.3 Phosphorus Magnesium Total Bilirubin 0.4 AST 69 H ALT 180 H Alkaline Phosphatase 437 H Total Protein 7.7 Albumin 2.7 L TSH Free T4 03/17/18 03/17/18 03/18/18 17:33 20:45 04:07 Sodium Potassium Chloride Carbon Dioxide Anion Gap BUN Creatinine Estimated GFR POC Glucose 172 H 256 H 163 H Random Glucose Calcium Phosphorus Magnesium Total Bilirubin AST ALT Alkaline Phosphatase Total Protein Albumin TSH Free T4 03/18/18 03/18/18 03/18/18 06:13 08:39 12:52 Sodium 138 Potassium 4.1 Chloride 102 Carbon Dioxide 28.2 Anion Gap 8 BUN 12 Creatinine 0.69 Estimated GFR 84 L POC Glucose 124 H 222 H Random Glucose 183 H Calcium 8.8 Phosphorus 3.6 Magnesium 2.5 Total Bilirubin 0.2 AST 50 H ALT 151 H Alkaline Phosphatase 332 H Total Protein 7.1 D Albumin 2.5 L TSH 0.410 Free T4 1.48 H Imaging: ITS Impressions Chest X-Ray 03/12/18 21:28 CONCLUSION: 1. Chronic interstitial prominence with stable left basilar patchy airspace disease. Chest CT 03/13/18 00:00 CONCLUSION: 1. Patchy alveolar pneumonia in the left lower lobe. 2. Chronic bronchiectasis and inflammatory infiltrates of both lungs are otherwise not significantly changed. 3. No significant change upper limits of normal to mildly enlarged mediastinal and hilar lymph nodes area 4. Tiny pericardial effusion. Coronary artery calcification. Physical Exam: PHYSICAL EXAMINATION: GENERAL: No acute distress. Awake and alert. HEENT: Extraocular movements grossly intact, pupils reactive to light. No icterus. Oropharynx: Moist mucosa without visible lesions. NECK: No adenopathy or swelling. LUNGS: Bilateral rales diffuse unchanged. HEART: Regular rate and rhythm without murmurs, rubs or gallops. ABDOMEN: Bowel sounds present. Soft, no tenderness appreciated. EXTREMITIES: No clubbing, cyanosis or edema. Muscle wasting of the extremities. SKIN: No rash. NEUROLOGIC: calm and cooperative. Assessment and Plan - Plan IMPRESSION: 1. Pneumonia due to Achromobacter. Resistant to cefepime. Repeat sputum culture has gram-negative raghav. Identity and sensitivity pending. 2. Positive sputum culture with Aspergillus in addition to gram-negative raghav and Achromobacter and chronic interstitial left basilar opacity. Aspergillus is probably contaminant. RECOMMENDATIONS: 1. Continue piperacillin/tazobactam. If she continues to improve can consider discharge on IV course of piperacillin/ tazobactam for 21 days. 2. Continue Levaquin. Monitor liver function tests. 3. Monitor temperature. Arrangements of outpatient IV antibiotics will be made once we have further information on the latest sputum culture. Discussed with patient. Continue to follow up with Dr. Jackson on discharge.
[2018-03-19] MEDS: Piperacil/Tazo 4.5 GM Premix 4.5 GM/100 ML BAG IV.SIG SCH ×4 (03:24→20:59)
[2018-03-19] MEDS: Insulin NovoLOG Aspart Correctional Sugar Inj SQ SCH ×4 (03:26→20:58)
[2018-03-19] MEDS: Levothyroxine 100 MCG Tablet PO SCH (05:09)
[2018-03-19] MEDS: Heparin - SQ 10,000 UNITS/ML Vial SQ SCH ×2 (05:09→17:44)
[2018-03-19] MEDS: MethylPREDNISolone Sod Succinate Inj 40 MG/ML Vial IV.PUSH SCH ×2 (09:51→20:59)
[2018-03-19] MEDS: amLODIPine 5 MG Tablet PO SCH (09:51)
[2018-03-19] MEDS: Lactobacillus Acidophilus/L. Spores Tablet PO SCH ×3 (09:51→17:44)
[2018-03-19] MEDS: Nystatin Liq 500,000 UNIT/5 ML UDC SWISH-SWAL SCH ×4 (09:51→20:57)
[2018-03-19] MEDS: Senna/Docusate Sodium 8.6/50 MG Tablet PO SCH ×2 (09:52→20:58)
--- NOTE | 2018-03-19 10:04 | P.PNIM ---
Subjective Interval history: Patient is feeling better today compared to last time I saw her. She has had clinical improvement through time. Ambulation as tolerated at this point. Awaiting final cultures. Physical Exam Vital signs: Last Vital Signs Temp 97.6 F 03/19/18 08:00 Pulse 72 03/19/18 08:08 Resp 18 03/19/18 08:08 BP 136/68 03/19/18 08:00 Pulse Ox 97 03/19/18 08:08 Intake & Output 03/17/18 03/18/18 03/19/18 03/20/18 06:59 06:59 06:59 06:59 Intake Total 700 / 700 2250 / 2250 1450 / 1450 Balance 700 / 700 2250 / 2250 1450 / 1450 Narrative: GENERAL: NAD, A&Ox3 HEAD: Normocephalic. NECK: Supple, trachea midline. No lymphadenopathy. EYES: No scleral icterus. No injection or drainage. CARDIOVASCULAR: Regular rate and rhythm without murmurs, gallops, or rubs. RESPIRATORY: Breath sounds equal bilaterally. No accessory muscle use. Trace wheezing and crackles bilaterally. GASTROINTESTINAL: Abdomen soft, non-tender, nondistended. MUSCULOSKELETAL: No cyanosis, or edema. SKIN: Warm and dry. NEURO: No focal neurological deficits. Results Labs CBC & Chem 7: 03/18/18 06:13 03/18/18 06:13 Labs: Microbiology 03/16/18 17:28 Sputum - Expectorated Sputum Gram Stain - Final 03/16/18 17:28 Sputum - Expectorated Sputum Sputum Culture - Preliminary gram negative rods Assessment and Plan Plan 67-year-old female admitted secondary to fever with pre-existing chronic pneumonia. Known pre-existing history of Pseudomonas infection currently under treatment with cefepime and Cipro as an outpatient. New diagnosis of pulmonary aspergillosis. Awaiting final cultures. Patient is clinically improving on treatments. Treatment plan will be crafted based on final cultures. ID following. Chronic Pseudomonas infection Bronchiectasis with Achromobacter Pulmonary aspergillosis Pulmonology following ID following Continue Levaquin Continue Zosyn Probiotics COPD Asthma Contributory to patient's hypoxia Patient has been on 2 L nasal cannula at home Continue baseline inhalers Pulmonology following Hypertension Continue baseline treatment Follow blood pressures Adjust treatments as needed Diabetes mellitus type 2 Follow blood sugars Insulin sliding scale Diabetic diet Hypothyroidism Continue baseline treatments Follow-up as an outpatient DVT prophylaxis Heparin Discharge Planning Respiratory status needs improvement prior to discharge PICC with outpatient antibiotics anticipated at discharge Progress Note: Quality VTE Deep Vein Thrombosis/Pulmonary Embolism Present on Admission: No
[2018-03-19 20:53] LABS: Albumin 2.7 g/dL (3.4-5.0)
[2018-03-19 20:54] LABS: Total Protein 7.3 g/dL (6.4-8.2)
[2018-03-20] MEDS: Piperacil/Tazo 4.5 GM Premix 4.5 GM/100 ML BAG IV.SIG SCH ×4 (01:51→19:57)
[2018-03-20] MEDS: Levothyroxine 100 MCG Tablet PO SCH ×2 (04:16→05:42)
[2018-03-20] MEDS: Heparin - SQ 10,000 UNITS/ML Vial SQ SCH ×2 (04:17→17:37)
[2018-03-20] MEDS: Insulin NovoLOG Aspart Correctional Sugar Inj SQ SCH ×5 (04:54→20:09)
--- NOTE | 2018-03-20 08:31 | P.PNPL ---
Subjective Interval history: Patient is on 2L oxygem afebrile, states her breathing is better. Physical Exam Vital signs: Vital Signs 03/19/18 11:46 03/19/18 12:00 03/19/18 16:00 Temperature 98 F 97.5 F L Pulse Rate 89 92 H 83 Respiratory Rate 16 18 17 Blood Pressure 131/61 126/65 Pulse Oximetry 94 L 97 03/19/18 17:37 03/19/18 20:00 03/19/18 20:27 Temperature 97.8 F Pulse Rate 93 H 74 Respiratory Rate 14 20 20 Blood Pressure 149/69 H Pulse Oximetry 97 98 03/20/18 00:00 Temperature 97.9 F Pulse Rate 79 Respiratory Rate 16 Blood Pressure 129/65 Pulse Oximetry 97 Intake & Output 03/19/18 03/20/18 03/20/18 18:59 06:59 18:59 Intake Total 800 / 800 1050 / 1050 Balance 800 / 800 1050 / 1050 Weight 68 kg Intake: IV 200 / 200 350 / 350 Levaquin 750 mg Premix Inj 150 150 / 150 ML @ 100 mls/hr IV.SIG Q24H [facility] Rx#:[id number] Zosyn 4.5 GM Premix 4.5 gm In 200 / 200 200 / 200 100 ml @ 200 mls/hr IV.SIG Q6H [facility] Rx#:[id number] Oral 600 / 600 700 / 700 Other: # Voids 1 2 Date of Last Bowel Movement 03/19/18 # Bowel Movements 0 - Constitutional no acute distress, average body habitus - Routine HEENT Exam Head: Present: normocephalic, atraumatic Eye: Present: EOMI, PERRL, normal accommodation, conjunctivae pink ENT: Present: mucous membranes moist - Routine Neck Exam Present: supple, full ROM, trachea midline - Routine Respiratory Exam Present: crackles - Routine Cardiovascular Exam Present: RRR, S1, S2 - Routine Abdominal Exam Present: soft, normoactive bowel sounds - Routine Extremities Exam Present: full ROM, pulses intact - Routine Skin Exam Present: intact - Routine Neurological Exam Present: alert, oriented X3, CN II-XII intact - Routine Psychiatric Exam Present: normal affect Assessment and Plan - Plan 1) Resp Insuff 2)LLL Pneumonia 3)Chronic bronchiectasis 4)Mildly enlarged mediastinal and hilar lymph nodes area likely related to inflammatory process 5)Hx Bronchial Asthma 6)Chronic Pseudomonas infection 7)Pulmonary aspergillosis 8)Hypothyroidism Plan Continue with oxygen keep sats >92% Bronchodilators ( DuoNeb) Continue Solumederol 40mg IV Q12 will switch to PO Prednisone tomorrow if continue to improve. Abx per ID> On Zosyn/Levaquin. Monitor for signs of infections ( Fever, WBC) 03/16 Sputum cx: GNR, 03/13: Achromobacter IgE level: 23.9, Follow up on Aspergillus ab PFT 03/18: Moderate to severe obstructive lung disease with some bronchodilator response. Continue treatment plan.
[2018-03-20] MEDS: amLODIPine 5 MG Tablet PO SCH (08:49)
[2018-03-20] MEDS: Nystatin Liq 500,000 UNIT/5 ML UDC SWISH-SWAL SCH ×4 (08:49→20:09)
[2018-03-20] MEDS: Lactobacillus Acidophilus/L. Spores Tablet PO SCH ×3 (08:49→17:37)
[2018-03-20] MEDS: Senna/Docusate Sodium 8.6/50 MG Tablet PO SCH ×2 (08:50→20:09)
[2018-03-20] MEDS: MethylPREDNISolone Sod Succinate Inj 40 MG/ML Vial IV.PUSH SCH ×2 (08:50→20:04)
--- NOTE | 2018-03-20 13:22 | P.PNIM ---
Subjective Interval history: Patient still complains of a cough. She says she is starting to feel better. Physical Exam Vital signs: Vital Signs 03/19/18 16:00 03/19/18 17:37 03/19/18 20:00 Temperature 97.5 F L 97.8 F Pulse Rate 83 93 H Respiratory Rate 17 14 20 Blood Pressure 126/65 149/69 H Pulse Oximetry 97 97 03/19/18 20:27 03/20/18 00:00 03/20/18 08:00 Temperature 97.9 F 97.5 F L Pulse Rate 74 79 70 Respiratory Rate 20 16 19 Blood Pressure 129/65 154/74 H Pulse Oximetry 98 97 99 03/20/18 09:18 03/20/18 12:00 03/20/18 12:10 Temperature 97.8 F Pulse Rate 79 Respiratory Rate 15 19 15 Blood Pressure 126/65 Pulse Oximetry 97 Intake & Output 03/19/18 03/20/18 03/20/18 18:59 06:59 18:59 Intake Total 800 / 800 1050 / 1050 100 / 100 Balance 800 / 800 1050 / 1050 100 / 100 Weight 68 kg Intake: IV 200 / 200 350 / 350 100 / 100 Levaquin 750 mg Premix Inj 150 150 / 150 ML @ 100 mls/hr IV.SIG Q24H [facility] Rx#:[id number] Zosyn 4.5 GM Premix 4.5 gm In 200 / 200 200 / 200 100 / 100 100 ml @ 200 mls/hr IV.SIG Q6H [facility] Rx#:[id number] Oral 600 / 600 700 / 700 Other: # Voids 1 2 Date of Last Bowel Movement 03/19/18 # Bowel Movements 0 Narrative: General patient still has a cough, improving over the past few days. HEENT extraocular movements are intact, clear oropharyngeal mucosa, no JVD Cardiovascular S1-S2 audible, RRR, no murmurs rubs or gallops Respiratory rhonchi bilaterally Abdomen soft, nontender, nondistended, normal bowel sounds Extremities no edema 2+ distal pulses in bilateral upper and lower extremities Neuro cranial nerves II through XII intact Results - Labs CBC & Chem 7: 03/18/18 06:13 03/18/18 06:13 Laboratory Results - last 24 hr 03/19/18 03/19/18 03/19/18 16:24 19:41 19:50 POC Glucose 213 H 254 H Total Bilirubin 0.2 Direct Bilirubin 0.1 Indirect Bilirubin 0.1 AST 34 ALT 131 H Alkaline Phosphatase 275 H Total Protein 7.3 Albumin 2.7 L 03/20/18 03/20/18 07:44 11:45 POC Glucose 123 H 123 H Total Bilirubin Direct Bilirubin Indirect Bilirubin AST ALT Alkaline Phosphatase Total Protein Albumin Microbiology 03/16/18 17:28 Sputum - Expectorated Sputum Gram Stain - Final 03/16/18 17:28 Sputum - Expectorated Sputum Sputum Culture - Preliminary gram negative rods Assessment and Plan - Assessment (1) Febrile illness Code(s): R50.9 - Fever, unspecified Status: Acute (2) Failure of outpatient treatment Code(s): Z78.9 - Other specified health status Status: Acute (3) Infiltrate of lung present on chest x-ray Code(s): R91.8 - Other nonspecific abnormal finding of lung field Status: Acute (4) Bronchiectasis Code(s): J47.9 - Bronchiectasis, uncomplicated Status: Chronic (5) Asthma Code(s): J45.909 - Unspecified asthma, uncomplicated Status: Chronic - Plan This patient is a 67-year-old female who was admitted secondary to fever with pre-existing chronic pneumonia. She has a history of Pseudomonas infection and is currently under treatment with cefepime and Cipro as an outpatient. The patient was admitted for a new diagnosis of pulmonary aspergillosis. 1. Chronic Pseudomonas infection. 2. Pneumonia due to Achromobacter, Resistant to Cefepime. Patient symptoms are improving daily. Cultures from sputum grew aspergillus as well as achromobacter. As per infectious disease Aspergillus is likely a contaminant. Patient currently on 2 L of submental oxygen which is what she uses at baseline. Continue breathing treatments as needed. Continue current inhalers. Pulmonary following Infectious disease following Continue Levaquin and Zosyn. As per infectious disease the patient will need 21 days of IV Zosyn. Will discuss the case with infectious disease and the pulmonary team. Once the patient is cleared by them she would likely be discharged home with home health and IV antibiotics. We will follow up on final cultures as well as recommendations on antibiotics from infectious disease. 3. COPD/asthma exacerbation Patient on 2 L of supplemental oxygen at baseline. Continue inhalers. Pulmonary team following. Continue IV steroids, will likely switch to PO steroids tomorrow if she shows improvement. 4. Hypertension Blood pressure currently under control. Continue current medication regimen. 5. Diabetes mellitus type 2 Continue low-dose insulin sliding scale. Blood sugars ranging from 120-200. We will continue to monitor her blood sugars and adjust them as needed. 6. Hypothyroidism Continue levothyroxine. Heparin for DVT prophylaxis.
[2018-03-21] MEDS: Piperacil/Tazo 4.5 GM Premix 4.5 GM/100 ML BAG IV.SIG SCH ×4 (01:40→21:13)
[2018-03-21] MEDS: Insulin NovoLOG Aspart Correctional Sugar Inj SQ SCH ×5 (03:21→21:17)
[2018-03-21] MEDS: Levothyroxine 100 MCG Tablet PO SCH (05:10)
[2018-03-21] MEDS: Heparin - SQ 10,000 UNITS/ML Vial SQ SCH ×2 (05:10→17:31)
--- NOTE | 2018-03-21 08:08 | P.PNPL ---
Subjective Interval history: Patient is on 2L oxygen, looks comfortable. Physical Exam Vital signs: Vital Signs 03/20/18 09:18 03/20/18 12:00 03/20/18 12:10 Temperature 97.8 F Pulse Rate 79 Respiratory Rate 15 19 15 Blood Pressure 126/65 Pulse Oximetry 97 03/20/18 16:00 03/20/18 16:47 03/20/18 20:00 Temperature 97.9 F 98.4 F Pulse Rate 81 74 76 Respiratory Rate 18 15 17 Blood Pressure 108/58 L 132/65 Pulse Oximetry 96 97 03/20/18 22:09 03/21/18 00:00 Temperature 97.7 F Pulse Rate 52 L 78 Respiratory Rate 16 15 Blood Pressure 149/74 H Pulse Oximetry 98 Intake & Output 03/20/18 03/21/18 03/21/18 18:59 06:59 18:59 Intake Total 1160 / 1160 350 / 350 Balance 1160 / 1160 350 / 350 Weight 69.3 kg Intake: IV 200 / 200 350 / 350 Levaquin 750 mg Premix Inj 150 150 / 150 ML @ 100 mls/hr IV.SIG Q24H [facility] Rx#:[id number] Zosyn 4.5 GM Premix 4.5 gm In 200 / 200 200 / 200 100 ml @ 200 mls/hr IV.SIG Q6H [facility] Rx#:[id number] Oral 960 / 960 Other: # Voids 3 3 - Constitutional no acute distress, average body habitus - Routine HEENT Exam Head: Present: normocephalic, atraumatic Eye: Present: EOMI, PERRL, normal accommodation, conjunctivae pink ENT: Present: mucous membranes moist - Routine Neck Exam Present: supple, full ROM, trachea midline - Routine Respiratory Exam Present: decreased breath sounds, crackles - Routine Cardiovascular Exam Present: RRR, S1, S2 - Routine Abdominal Exam Present: soft, normoactive bowel sounds - Routine Skin Exam Present: intact, dry - Routine Neurological Exam Present: alert, oriented X3, CN II-XII intact - Routine Psychiatric Exam Present: normal affect Assessment and Plan - Plan 1) Resp Insuff 2)LLL Pneumonia 3)Chronic bronchiectasis 4)Mildly enlarged mediastinal and hilar lymph nodes area likely related to inflammatory process 5)Hx Bronchial Asthma 6)Chronic Pseudomonas infection 7)Pulmonary aspergillosis 8)Hypothyroidism Plan Continue with oxygen keep sats >92% Bronchodilators ( DuoNeb) Switch to PO Prednisone 30mg BID Abx per ID> On Zosyn/Levaquin. Monitor for signs of infections ( Fever, WBC) 03/16 Sputum cx: GNR, 03/13: Sputum: Achromobacter IgE level: 23.9, Follow up on Aspergillus ab ( pending) PFT 03/18: Moderate to severe obstructive lung disease with some bronchodilator response. GI/DVT prophylaxis- on Heparin SQ Continue treatment plan.
[2018-03-21] MEDS: Lactobacillus Acidophilus/L. Spores Tablet PO SCH ×3 (08:38→17:31)
[2018-03-21] MEDS: amLODIPine 5 MG Tablet PO SCH (08:38)
[2018-03-21] MEDS: Nystatin Liq 500,000 UNIT/5 ML UDC SWISH-SWAL SCH ×4 (08:38→21:14)
[2018-03-21] MEDS: predniSONE 10 MG Tablet PO SCH ×2 (08:41→21:14)
[2018-03-21] MEDS: Senna/Docusate Sodium 8.6/50 MG Tablet PO SCH ×2 (08:58→21:14)
--- NOTE | 2018-03-21 14:30 | P.PNIM ---
Subjective Interval history: 67-year-old female with a past medical history significant for known lung Pseudomonas infection treated as an outpatient with IV cefepime and Cipro, COPD , diabetes mellitus, hypertension and hypothyroidism presents to the emergency department for the evaluation of fevers. The patient was recently hospitalized for shortness of breath and fevers and was evaluated by pulmonology. She was discharged to home to continue with cefepime and ciprofloxacin. She reports her fevers returned today with a T-max of 104 orally at home. She states her shortness of breath is at baseline and is mildly improved with nebulizer treatments. The patient denies any chest pain. No abdominal pain. No nausea/ vomiting/diarrhea. No focal neurologic deficits. 1124 Patient is seen sitting up in bed. Reports that she feels like she is breathing close to her baseline and without difficulty. Nasal cannula in place. She has been having low-grade fevers since discharge and last night decided to come in after it went up to 104. She reports exposure to black mold in her workplace about 10 years ago and is concerned that this might be affecting her now. Reports that she did have her house tested for mold and there was not any. She does say that she needs a new nebulizer machine as hers is very old but that she has changed the mask and tubing. Also reports frequently changing O2 tubing. No fever or chills this morning. No chest pain. Baseline S OB. No nausea vomiting or diarrhea. 03-14 Patient seen sitting up in bed. No new complaint of shortness of breath. She has had some yellowish sputum. No fever or chills. 11-26 No significant improvement in respiratory status. Exertion patient becomes severely dyspneic. Resting in bed with oxygen she is stable. 11-27 Patient reports possible slight improvement. She still not functional due to respiratory distress with exertion, but feels that this may have slightly proved compared to yesterday. No other new complaints today. 11- SEEN BY PULMONARY AND ID NOT CLEARED FOR DISCHARGE YET ALREADY HAS RIGHT UE PICC LINE IN PLACE AM LABS CONTINUE CURRENT TREATMENTS WILL PROBABLY NEED HHC FOR ANTIBIOTICS 03-18 STILL HAVING COUGH AND CONGESTION NOT CLEARED FOR DC YET HAS RIGHT UE PICC WILL NEED HHC FOR ANTIBIOTICS CONTINUE CURRENT RXS 11-30 Interval history: Patient is feeling better today compared to last time I saw her. She has had clinical improvement through time. Ambulation as tolerated at this point. Awaiting final cultures. 1 Patient still complains of a cough. She says she is starting to feel better. -2 AWAIT CULTURES DW RN AND PT NOT CLEARED BY ID OR PULMONARY YET AM LABS Physical Exam Vital signs: Vital Signs 03/20/18 16:00 03/20/18 16:47 03/20/18 20:00 Temperature 97.9 F 98.4 F Pulse Rate 81 74 76 Respiratory Rate 18 15 17 Blood Pressure 108/58 L 132/65 Pulse Oximetry 96 97 03/20/18 22:09 03/21/18 00:00 03/21/18 08:00 Temperature 97.7 F 97.8 F Pulse Rate 52 L 78 72 Respiratory Rate 16 15 18 Blood Pressure 149/74 H 145/74 H Pulse Oximetry 98 95 03/21/18 12:00 Temperature 97.7 F Pulse Rate 77 Respiratory Rate 18 Blood Pressure 144/69 H Pulse Oximetry 96 Intake & Output 03/20/18 03/21/18 03/21/18 18:59 06:59 18:59 Intake Total 1160 / 1160 350 / 350 100 / 100 Balance 1160 / 1160 350 / 350 100 / 100 Weight 69.3 kg Intake: IV 200 / 200 350 / 350 100 / 100 Levaquin 750 mg Premix Inj 150 150 / 150 ML @ 100 mls/hr IV.SIG Q24H [facility] Rx#:[id number] Zosyn 4.5 GM Premix 4.5 gm In 200 / 200 200 / 200 100 / 100 100 ml @ 200 mls/hr IV.SIG Q6H [facility] Rx#:[id number] Oral 960 / 960 Other: # Voids 3 3 Narrative: General patient still has a cough, improving over the past few days. HEENT extraocular movements are intact, clear oropharyngeal mucosa, no JVD Cardiovascular S1-S2 audible, RRR, no murmurs rubs or gallops Respiratory rhonchi bilaterally Abdomen soft, nontender, nondistended, normal bowel sounds Extremities no edema 2+ distal pulses in bilateral upper and lower extremities Neuro cranial nerves II through XII intact Results - Labs CBC & Chem 7: 03/18/18 06:13 03/18/18 06:13 Laboratory Results - last 24 hr 03/20/18 03/20/18 03/21/18 16:48 19:59 07:47 POC Glucose 100 229 H 108 03/21/18 11:59 POC Glucose 85 Microbiology 03/16/18 17:28 Sputum - Expectorated Sputum Gram Stain - Final 03/16/18 17:28 Sputum - Expectorated Sputum Sputum Culture - Final Acinetobacter sloan cplx/haemol - Imaging Chest X-Ray 03/12/18 21:28 CONCLUSION: 1. Chronic interstitial prominence with stable left basilar patchy airspace disease. Chest CT 03/13/18 00:00 CONCLUSION: 1. Patchy alveolar pneumonia in the left lower lobe. 2. Chronic bronchiectasis and inflammatory infiltrates of both lungs are otherwise not significantly changed. 3. No significant change upper limits of normal to mildly enlarged mediastinal and hilar lymph nodes area 4. Tiny pericardial effusion. Coronary artery calcification. Assessment and Plan - Assessment (1) Febrile illness Code(s): R50.9 - Fever, unspecified Status: Acute (2) Failure of outpatient treatment Code(s): Z78.9 - Other specified health status Status: Acute (3) Infiltrate of lung present on chest x-ray Code(s): R91.8 - Other nonspecific abnormal finding of lung field Status: Acute (4) Bronchiectasis Code(s): J47.9 - Bronchiectasis, uncomplicated Status: Chronic (5) Asthma Code(s): J45.909 - Unspecified asthma, uncomplicated Status: Chronic - Plan 67-year-old female admitted secondary to fever with pre-existing chronic pneumonia. Known pre-existing history of Pseudomonas infection currently under treatment with cefepime and Cipro as an outpatient. New diagnosis of pulmonary aspergillosis. Chronic Pseudomonas infection Bronchiectasis with Achromobacter Pulmonary aspergillosis Pulmonology following ID following Continue Levaquin Continue Zosyn VANCO AND VORICONAZOLE HAVE BEEN DISCONTINUED Probiotics CONTINUE ON OXYGEN WILL NEED FOLLOW UP WITH DR MAC AFTER DC ALREADY HAS PICC LINE COPD Asthma Contributory to patient's hypoxia Patient has been on 2 L nasal cannula at home Continue baseline inhalers Pulmonology following ON PO PREDNISONE Hypertension Continue baseline treatment Follow blood pressures Adjust treatments as needed Diabetes mellitus type 2 Follow blood sugars Insulin sliding scale Diabetic diet Hypothyroidism Continue baseline treatments Follow-up as an outpatient ON LEVOTHYROXINE DVT prophylaxis Heparin HAS NOT BEEN CLEARED BY ID OR PULMONARY YET Code Status: FULL CODE Discussed Condition With: RN AND PT AND CM Discharge Planning: PENDING PULMONARY AND ID CLEARANCE
[2018-03-22] MEDS: Piperacil/Tazo 4.5 GM Premix 4.5 GM/100 ML BAG IV.SIG SCH ×4 (02:49→21:23)
[2018-03-22] MEDS: Insulin NovoLOG Aspart Correctional Sugar Inj SQ SCH ×5 (02:49→21:29)
[2018-03-22] MEDS: Heparin - SQ 10,000 UNITS/ML Vial SQ SCH ×2 (04:30→18:08)
[2018-03-22] MEDS: Levothyroxine 100 MCG Tablet PO SCH (05:32)
[2018-03-22 07:26] LABS: Eos % (Auto) 0.1 % (0.0-4.0); Hematocrit 31.2 % (35.0-46.0); Hemoglobin 10.3 gm/dL (11.6-15.3); Lymph # (Auto) 1.4 th/mm3 (1.0-4.8); Lymph % (Auto) 9.2 % (9.0-44.0); Mean Corpuscular Volume 84.8 fL (80.0-100.0); Mean Platelet Volume 7.2 fL (7.0-11.0); Mono # (Auto) 1.1 th/mm3 (0.0-0.9); Mono % (Auto) 7.2 % (0.0-8.0); Neut # (Auto) 12.3 th/mm3 (1.8-7.7); Neut % (Auto) 83.5 % (16.0-70.0); Platelet Count 503 th/mm3 (150-450); Red Blood Count 3.69 mil/mm3 (4.00-5.30); Red Cell Distribution Width 15.7 % (11.6-17.2); White Blood Count 14.8 th/mm3 (4.0-11.0)
[2018-03-22 08:04] LABS: Albumin 2.7 g/dL (3.4-5.0); Anion Gap 6 meq/L (5-15); Blood Urea Nitrogen 16 mg/dL (7-18); Calcium 8.4 mg/dL (8.5-10.1); Carbon Dioxide 27.5 meq/L (21.0-32.0); Chloride 105 meq/L (98-107); Glucose,Random 149 mg/dL (74-106); Magnesium 2.5 mg/dL (1.5-2.5); Potassium 4.1 meq/L (3.5-5.1); Sodium 138 meq/L (136-145)
[2018-03-22 08:07] LABS: Alanine Aminotransferase 80 U/L (10-53); Aspartate Aminotransferase 15 U/L (15-37)
[2018-03-22 08:12] LABS: Alkaline Phosphatase 182 U/L (45-117); Glomerular Filtration Rate 79 mL/min (>89); Phosphorus 3.6 mg/dL (2.5-4.9); Total Protein 6.5 g/dL (6.4-8.2)
[2018-03-22 08:23] LABS: Lymphocytes 1 % (9-44); Monocytes 7 % (0-8); Myelocytes 1 % (0-0); Ovalocytes 1+; Platelet Morphology Normal (Normal)
[2018-03-22] MEDS: predniSONE 10 MG Tablet PO SCH ×2 (08:59→21:23)
[2018-03-22] MEDS: amLODIPine 5 MG Tablet PO SCH (08:59)
[2018-03-22] MEDS: Nystatin Liq 500,000 UNIT/5 ML UDC SWISH-SWAL SCH ×4 (08:59→21:23)
[2018-03-22] MEDS: Lactobacillus Acidophilus/L. Spores Tablet PO SCH ×3 (09:00→18:08)
[2018-03-22] MEDS: Senna/Docusate Sodium 8.6/50 MG Tablet PO SCH ×2 (09:00→21:23)
--- NOTE | 2018-03-22 12:23 | P.PNID ---
Subjective Remarks: Patient feels okay. Notes that she is short of breath after ambulating halls. Notes she is bringing up quite a bit of sputum. No fever. On oxygen via nasal cannula. Sputum culture last sent on 03/16 has Acinetobacter. Previous sputum culture had Achromobacter. Past Medical History: PAST MEDICAL HISTORY: COPD, bronchiectasis, asthma, diabetes mellitus, hypertension, hypothyroidism, osteopenia, Pseudomonas aeruginosa pulmonary infection, bilateral knee replacements, tubal ligation. Allergies/Adverse Reactions: Allergies No Known Allergies Allergy (Verified 03/12/18 21:02) Objective Vital Signs 03/21/18 16:00 03/21/18 16:26 03/21/18 19:22 Temperature 97.9 F Pulse Rate 69 77 67 Respiratory Rate 18 18 18 Blood Pressure 130/67 Pulse Oximetry 99 95 03/21/18 20:00 03/21/18 20:20 03/22/18 00:00 Temperature 97.9 F 97.5 F L Pulse Rate 72 71 Respiratory Rate 16 15 Blood Pressure 133/68 131/68 Pulse Oximetry 99 96 96 03/22/18 00:25 03/22/18 08:00 03/22/18 08:13 Temperature 97.9 F Pulse Rate 92 H 63 88 Respiratory Rate 18 16 16 Blood Pressure 126/77 Pulse Oximetry 98 95 Intake & Output 03/21/18 03/22/18 03/22/18 18:59 06:59 18:59 Intake Total 1400 / 1400 590 / 590 Balance 1400 / 1400 590 / 590 Weight 68.4 kg Intake: IV 200 / 200 350 / 350 Levaquin 750 mg Premix Inj 150 150 / 150 ML @ 100 mls/hr IV.SIG Q24H [facility] Rx#:[id number] Zosyn 4.5 GM Premix 4.5 gm In 200 / 200 200 / 200 100 ml @ 200 mls/hr IV.SIG Q6H [facility] Rx#:[id number] Oral 1200 / 1200 240 / 240 Other: # Voids 3 2 # Bowel Movements 0 03/16/18 17:28 Sputum - Expectorated Sputum Gram Stain - Final 03/16/18 17:28 Sputum - Expectorated Sputum Sputum Culture - Final Acinetobacter sloan cplx/haemol Lab - Hematology Results 03/22/18 06:27 WBC 14.8 H RBC 3.69 L Hgb 10.3 L Hct 31.2 L MCV 84.8 MCH 28.0 MCHC 33.0 RDW 15.7 Plt Count 503 H MPV 7.2 Prelim Diff (Auto) Slide review pending Neut % (Auto) 83.5 H Lymph % (Auto) 9.2 [place] % (Auto) 7.2 Eos % (Auto) 0.1 Baso % (Auto) 0.0 Neut # (Auto) 12.3 H Lymph # (Auto) 1.4 [place] # (Auto) 1.1 H Eos # (Auto) 0.0 Baso # (Auto) 0.0 WBC Differential Manual diff final Seg Neuts % (Manual) 89 H Band Neuts % (Manual) 2 Lymphocytes % (Manual) 1 L Monocytes % (Manual) 7 Myelocytes % (Man) 1 H Abs Neuts (Manual) 13.6 H Differential Comment . Platelet Estimate High H Platelet Morphology Normal Ovalocytes 1+ H Lab - Chemistry Results 03/20/18 03/20/18 03/21/18 16:48 19:59 07:47 Sodium Potassium Chloride Carbon Dioxide Anion Gap BUN Creatinine Estimated GFR POC Glucose 100 229 H 108 Random Glucose Calcium Phosphorus Magnesium Total Bilirubin AST ALT Alkaline Phosphatase Total Protein Albumin 03/21/18 03/21/18 03/21/18 11:59 16:45 21:17 Sodium Potassium Chloride Carbon Dioxide Anion Gap BUN Creatinine Estimated GFR POC Glucose 85 156 H 130 H Random Glucose Calcium Phosphorus Magnesium Total Bilirubin AST ALT Alkaline Phosphatase Total Protein Albumin 03/22/18 03/22/18 06:27 07:59 Sodium 138 Potassium 4.1 Chloride 105 Carbon Dioxide 27.5 Anion Gap 6 BUN 16 Creatinine 0.73 Estimated GFR 79 L POC Glucose 123 H Random Glucose 149 H Calcium 8.4 L Phosphorus 3.6 Magnesium 2.5 Total Bilirubin 0.3 AST 15 ALT 80 H Alkaline Phosphatase 182 H Total Protein 6.5 D Albumin 2.7 L Imaging: ITS Impressions Chest X-Ray 03/12/18 21:28 CONCLUSION: 1. Chronic interstitial prominence with stable left basilar patchy airspace disease. Chest CT 03/13/18 00:00 CONCLUSION: 1. Patchy alveolar pneumonia in the left lower lobe. 2. Chronic bronchiectasis and inflammatory infiltrates of both lungs are otherwise not significantly changed. 3. No significant change upper limits of normal to mildly enlarged mediastinal and hilar lymph nodes area 4. Tiny pericardial effusion. Coronary artery calcification. Physical Exam: PHYSICAL EXAMINATION: GENERAL: No acute distress. Awake and alert. HEENT: Extraocular movements grossly intact, pupils reactive to light. No icterus. Oropharynx: Moist mucosa NECK: No adenopathy or swelling. LUNGS: Bilateral rhonchi. HEART: Regular rate and rhythm without murmurs, rubs or gallops. ABDOMEN: Bowel sounds present. Soft. EXTREMITIES: No clubbing, cyanosis or edema. Muscle wasting of the extremities. SKIN: No rash. NEUROLOGIC: calm and cooperative. Assessment and Plan - Plan IMPRESSION: 1. Pneumonia due to Achromobacter. Resistant to cefepime. Repeat sputum culture has Acinetobacter. 2. Aspergillus in 1 sputum culture initially not recovered and repeat cultures. Probably contaminant. RECOMMENDATIONS: 1. Continue piperacillin/tazobactam. Repeat the sputum culture again to decide whether the Acinetobacter needs to be the focus of treatment. If the repeat sputum culture shows Acinetobacter we should treat for that organism. 2. Continue Levaquin. Monitor liver function tests. 3. Monitor temperature. Discussed with Dr. Izquierdo and Dr. Corey. Await sputum culture results to determine antibiotic treatment. She would continue to follow up with Dr. Jackson on discharge.
--- NOTE | 2018-03-22 14:38 | P.PNIM ---
Subjective Interval history: 67-year-old female with a past medical history significant for known lung Pseudomonas infection treated as an outpatient with IV cefepime and Cipro, COPD , diabetes mellitus, hypertension and hypothyroidism presents to the emergency department for the evaluation of fevers. The patient was recently hospitalized for shortness of breath and fevers and was evaluated by pulmonology. She was discharged to home to continue with cefepime and ciprofloxacin. She reports her fevers returned today with a T-max of 104 orally at home. She states her shortness of breath is at baseline and is mildly improved with nebulizer treatments. The patient denies any chest pain. No abdominal pain. No nausea/ vomiting/diarrhea. No focal neurologic deficits. 1124 Patient is seen sitting up in bed. Reports that she feels like she is breathing close to her baseline and without difficulty. Nasal cannula in place. She has been having low-grade fevers since discharge and last night decided to come in after it went up to 104. She reports exposure to black mold in her workplace about 10 years ago and is concerned that this might be affecting her now. Reports that she did have her house tested for mold and there was not any. She does say that she needs a new nebulizer machine as hers is very old but that she has changed the mask and tubing. Also reports frequently changing O2 tubing. No fever or chills this morning. No chest pain. Baseline S OB. No nausea vomiting or diarrhea. 03-14 Patient seen sitting up in bed. No new complaint of shortness of breath. She has had some yellowish sputum. No fever or chills. 11-26 No significant improvement in respiratory status. Exertion patient becomes severely dyspneic. Resting in bed with oxygen she is stable. 11-27 Patient reports possible slight improvement. She still not functional due to respiratory distress with exertion, but feels that this may have slightly proved compared to yesterday. No other new complaints today. 11- SEEN BY PULMONARY AND ID NOT CLEARED FOR DISCHARGE YET ALREADY HAS RIGHT UE PICC LINE IN PLACE AM LABS CONTINUE CURRENT TREATMENTS WILL PROBABLY NEED HHC FOR ANTIBIOTICS 03-18 STILL HAVING COUGH AND CONGESTION NOT CLEARED FOR DC YET HAS RIGHT UE PICC WILL NEED HHC FOR ANTIBIOTICS CONTINUE CURRENT RXS 11-30 Interval history: Patient is feeling better today compared to last time I saw her. She has had clinical improvement through time. Ambulation as tolerated at this point. Awaiting final cultures. 12-1 Patient still complains of a cough. She says she is starting to feel better. 12-2 AWAIT CULTURES DW RN AND PT NOT CLEARED BY ID OR PULMONARY YET AM LABS 12-3 HAS NOT BEEN CLEARED BY ID OR PULMONARY AWAIT CULTURES DW PT AND RN AND ID AND PULMONARY AM LABS Physical Exam Vital signs: Vital Signs 03/21/18 16:00 03/21/18 16:26 03/21/18 19:22 Temperature 97.9 F Pulse Rate 69 77 67 Respiratory Rate 18 18 18 Blood Pressure 130/67 Pulse Oximetry 99 95 03/21/18 20:00 03/21/18 20:20 03/22/18 00:00 Temperature 97.9 F 97.5 F L Pulse Rate 72 71 Respiratory Rate 16 15 Blood Pressure 133/68 131/68 Pulse Oximetry 99 96 96 03/22/18 00:25 03/22/18 08:00 03/22/18 08:13 Temperature 97.9 F Pulse Rate 92 H 63 88 Respiratory Rate 18 16 16 Blood Pressure 126/77 Pulse Oximetry 98 95 03/22/18 12:23 Temperature Pulse Rate 90 Respiratory Rate 16 Blood Pressure Pulse Oximetry Intake & Output 03/21/18 03/22/18 03/22/18 18:59 06:59 18:59 Intake Total 1400 / 1400 590 / 590 100 / 100 Balance 1400 / 1400 590 / 590 100 / 100 Weight 68.4 kg Intake: IV 200 / 200 350 / 350 100 / 100 Levaquin 750 mg Premix Inj 150 150 / 150 ML @ 100 mls/hr IV.SIG Q24H [facility] Rx#:[id number] Zosyn 4.5 GM Premix 4.5 gm In 200 / 200 200 / 200 100 / 100 100 ml @ 200 mls/hr IV.SIG Q6H [facility] Rx#:[id number] Oral 1200 / 1200 240 / 240 Other: # Voids 3 2 # Bowel Movements 0 Narrative: General patient still has a cough, improving over the past few days. HEENT extraocular movements are intact, clear oropharyngeal mucosa, no JVD Cardiovascular S1-S2 audible, RRR, no murmurs rubs or gallops Respiratory rhonchi bilaterally COARSE BS BL Abdomen soft, nontender, nondistended, normal bowel sounds Extremities no edema 2+ distal pulses in bilateral upper and lower extremities Neuro cranial nerves II through XII intact Results - Labs CBC & Chem 7: 03/22/18 06:27 03/22/18 06:27 Laboratory Results - last 24 hr 03/21/18 03/21/18 03/22/18 16:45 21:17 06:27 WBC 14.8 H RBC 3.69 L Hgb 10.3 L Hct 31.2 L MCV 84.8 MCH 28.0 MCHC 33.0 RDW 15.7 Plt Count 503 H MPV 7.2 Prelim Diff (Auto) Slide review pending Neut % (Auto) 83.5 H Lymph % (Auto) 9.2 [place] % (Auto) 7.2 Eos % (Auto) 0.1 Baso % (Auto) 0.0 Neut # (Auto) 12.3 H Lymph # (Auto) 1.4 [place] # (Auto) 1.1 H Eos # (Auto) 0.0 Baso # (Auto) 0.0 WBC Differential Manual diff final Seg Neuts % (Manual) 89 H Band Neuts % (Manual) 2 Lymphocytes % (Manual) 1 L Monocytes % (Manual) 7 Myelocytes % (Man) 1 H Abs Neuts (Manual) 13.6 H Differential Comment . Platelet Estimate High H Platelet Morphology Normal Ovalocytes 1+ H Sodium Potassium Chloride Carbon Dioxide Anion Gap BUN Creatinine Estimated GFR POC Glucose 156 H 130 H Random Glucose Calcium Phosphorus Magnesium Total Bilirubin AST ALT Alkaline Phosphatase Total Protein Albumin 03/22/18 03/22/18 03/22/18 06:27 07:59 12:34 WBC RBC Hgb Hct MCV MCH MCHC RDW Plt Count MPV Prelim Diff (Auto) Neut % (Auto) Lymph % (Auto) [place] % (Auto) Eos % (Auto) Baso % (Auto) Neut # (Auto) Lymph # (Auto) [place] # (Auto) Eos # (Auto) Baso # (Auto) WBC Differential Seg Neuts % (Manual) Band Neuts % (Manual) Lymphocytes % (Manual) Monocytes % (Manual) Myelocytes % (Man) Abs Neuts (Manual) Differential Comment Platelet Estimate Platelet Morphology Ovalocytes Sodium 138 Potassium 4.1 Chloride 105 Carbon Dioxide 27.5 Anion Gap 6 BUN 16 Creatinine 0.73 Estimated GFR 79 L POC Glucose 123 H 93 Random Glucose 149 H Calcium 8.4 L Phosphorus 3.6 Magnesium 2.5 Total Bilirubin 0.3 AST 15 ALT 80 H Alkaline Phosphatase 182 H Total Protein 6.5 D Albumin 2.7 L Microbiology 03/16/18 17:28 Sputum - Expectorated Sputum Gram Stain - Final 03/16/18 17:28 Sputum - Expectorated Sputum Sputum Culture - Final Acinetobacter jud cplx/haemol - Imaging ITS Impressions Chest X-Ray 03/12/18 21:28 CONCLUSION: 1. Chronic interstitial prominence with stable left basilar patchy airspace disease. Chest CT 03/13/18 00:00 CONCLUSION: 1. Patchy alveolar pneumonia in the left lower lobe. 2. Chronic bronchiectasis and inflammatory infiltrates of both lungs are otherwise not significantly changed. 3. No significant change upper limits of normal to mildly enlarged mediastinal and hilar lymph nodes area 4. Tiny pericardial effusion. Coronary artery calcification. Assessment and Plan - Assessment (1) Febrile illness Code(s): R50.9 - Fever, unspecified Status: Acute (2) Failure of outpatient treatment Code(s): Z78.9 - Other specified health status Status: Acute (3) Infiltrate of lung present on chest x-ray Code(s): R91.8 - Other nonspecific abnormal finding of lung field Status: Acute (4) Bronchiectasis Code(s): J47.9 - Bronchiectasis, uncomplicated Status: Chronic (5) Asthma Code(s): J45.909 - Unspecified asthma, uncomplicated Status: Chronic - Plan 67-year-old female admitted secondary to fever with pre-existing chronic pneumonia. Known pre-existing history of Pseudomonas infection currently under treatment with cefepime and Cipro as an outpatient. New diagnosis of pulmonary aspergillosis. Chronic Pseudomonas infection Bronchiectasis with Achromobacter Pulmonary aspergillosis Pulmonology following ID following Continue Levaquin Continue Zosyn VANCO AND VORICONAZOLE HAVE BEEN DISCONTINUED Probiotics CONTINUE ON OXYGEN WILL NEED FOLLOW UP WITH DR MAC AFTER DC ALREADY HAS PICC LINE COPD Asthma Contributory to patient's hypoxia Patient has been on 2 L nasal cannula at home Continue baseline inhalers Pulmonology following ON PO PREDNISONE Hypertension Continue baseline treatment Follow blood pressures Adjust treatments as needed Diabetes mellitus type 2 Follow blood sugars Insulin sliding scale Diabetic diet Hypothyroidism Continue baseline treatments Follow-up as an outpatient ON LEVOTHYROXINE DVT prophylaxis Heparin HAS NOT BEEN CLEARED BY ID OR PULMONARY YET NEW CULTURES ARE GROWING ACINETOBACTER JUD AND ACHROMOBACTER XYLOSOX Code Status: FULL CODE Discussed Condition With: [facility] AND PT AND CM AND ID AND PULMONARY Discharge Planning: PENDING PULMONARY AND ID CLEARANCE
[2018-03-23] MEDS: Piperacil/Tazo 4.5 GM Premix 4.5 GM/100 ML BAG IV.SIG SCH ×4 (02:59→20:59)
[2018-03-23] MEDS: Insulin NovoLOG Aspart Correctional Sugar Inj SQ SCH ×5 (03:03→21:04)
[2018-03-23] MEDS: Levothyroxine 100 MCG Tablet PO SCH (06:19)
[2018-03-23] MEDS: Heparin - SQ 10,000 UNITS/ML Vial SQ SCH ×2 (06:19→17:26)
[2018-03-23] MEDS: Lactobacillus Acidophilus/L. Spores Tablet PO SCH ×3 (08:17→17:26)
[2018-03-23] MEDS: Nystatin Liq 500,000 UNIT/5 ML UDC SWISH-SWAL SCH ×4 (08:17→20:59)
[2018-03-23] MEDS: amLODIPine 5 MG Tablet PO SCH (08:17)
[2018-03-23] MEDS: predniSONE 10 MG Tablet PO SCH ×2 (08:17→20:59)
[2018-03-23] MEDS: Senna/Docusate Sodium 8.6/50 MG Tablet PO SCH ×2 (08:18→20:59)
--- NOTE | 2018-03-23 12:53 | P.PNIM ---
Subjective Interval history: 67-year-old female with a past medical history significant for known lung Pseudomonas infection treated as an outpatient with IV cefepime and Cipro, COPD , diabetes mellitus, hypertension and hypothyroidism presents to the emergency department for the evaluation of fevers. The patient was recently hospitalized for shortness of breath and fevers and was evaluated by pulmonology. She was discharged to home to continue with cefepime and ciprofloxacin. She reports her fevers returned today with a T-max of 104 orally at home. She states her shortness of breath is at baseline and is mildly improved with nebulizer treatments. The patient denies any chest pain. No abdominal pain. No nausea/ vomiting/diarrhea. No focal neurologic deficits. 1124 Patient is seen sitting up in bed. Reports that she feels like she is breathing close to her baseline and without difficulty. Nasal cannula in place. She has been having low-grade fevers since discharge and last night decided to come in after it went up to 104. She reports exposure to black mold in her workplace about 10 years ago and is concerned that this might be affecting her now. Reports that she did have her house tested for mold and there was not any. She does say that she needs a new nebulizer machine as hers is very old but that she has changed the mask and tubing. Also reports frequently changing O2 tubing. No fever or chills this morning. No chest pain. Baseline S OB. No nausea vomiting or diarrhea. 03-14 Patient seen sitting up in bed. No new complaint of shortness of breath. She has had some yellowish sputum. No fever or chills. 11-26 No significant improvement in respiratory status. Exertion patient becomes severely dyspneic. Resting in bed with oxygen she is stable. 11-27 Patient reports possible slight improvement. She still not functional due to respiratory distress with exertion, but feels that this may have slightly proved compared to yesterday. No other new complaints today. 11- SEEN BY PULMONARY AND ID NOT CLEARED FOR DISCHARGE YET ALREADY HAS RIGHT UE PICC LINE IN PLACE AM LABS CONTINUE CURRENT TREATMENTS WILL PROBABLY NEED HHC FOR ANTIBIOTICS 03-18 STILL HAVING COUGH AND CONGESTION NOT CLEARED FOR DC YET HAS RIGHT UE PICC WILL NEED HHC FOR ANTIBIOTICS CONTINUE CURRENT RXS 11-30 Interval history: Patient is feeling better today compared to last time I saw her. She has had clinical improvement through time. Ambulation as tolerated at this point. Awaiting final cultures. 12-1 Patient still complains of a cough. She says she is starting to feel better. 12-2 AWAIT CULTURES DW RN AND PT NOT CLEARED BY ID OR PULMONARY YET AM LABS 12-3 HAS NOT BEEN CLEARED BY ID OR PULMONARY AWAIT CULTURES DW PT AND RN AND ID AND PULMONARY AM LABS 12-4 HAS NOT BEEN CLEARED BY ID OR PULMONARY FOR DISCHARGE YET AWAIT CLEARANCE AM LABS CONTINUE CURRENT TREATMENTS DW RN AND PT AND CM Physical Exam Vital signs: Vital Signs 03/22/18 15:40 03/22/18 16:00 03/22/18 19:28 Temperature 97.4 F L Pulse Rate 84 83 83 Respiratory Rate 18 16 16 Blood Pressure 112/56 L Pulse Oximetry 96 95 03/22/18 20:00 03/22/18 23:45 03/23/18 00:00 Temperature 97.7 F 97.3 F L Pulse Rate 70 90 73 Respiratory Rate 22 17 21 Blood Pressure 115/62 123/58 L Pulse Oximetry 98 95 98 03/23/18 03:55 03/23/18 07:54 03/23/18 08:00 Temperature 97.2 F L Pulse Rate 63 72 98 H Respiratory Rate 18 18 17 Blood Pressure 165/77 H Pulse Oximetry 96 94 L 03/23/18 12:02 Temperature Pulse Rate 75 Respiratory Rate 18 Blood Pressure Pulse Oximetry Intake & Output 03/22/18 03/23/18 03/23/18 18:59 06:59 18:59 Intake Total 200 / 200 440 / 440 150 / 150 Balance 200 / 200 440 / 440 150 / 150 Weight 67.6 kg Intake: IV 200 / 200 200 / 200 150 / 150 Levaquin 750 mg Premix Inj 150 150 / 150 ML @ 100 mls/hr IV.SIG Q24H [facility] Rx#:[id number] Zosyn 4.5 GM Premix 4.5 gm In 200 / 200 200 / 200 100 ml @ 200 mls/hr IV.SIG Q6H [facility] Rx#:[id number] Oral 240 / 240 Other: # Voids 2 Narrative: General patient still has a cough, improving over the past few days. HEENT extraocular movements are intact, clear oropharyngeal mucosa, no JVD Cardiovascular S1-S2 audible, RRR, no murmurs rubs or gallops Respiratory rhonchi bilaterally COARSE BS BL Abdomen soft, nontender, nondistended, normal bowel sounds Extremities no edema 2+ distal pulses in bilateral upper and lower extremities Neuro cranial nerves II through XII intact Results - Labs CBC & Chem 7: 03/22/18 06:27 03/22/18 06:27 Laboratory Results - last 24 hr 03/17/18 03/22/18 03/22/18 13:08 12:34 18:07 POC Glucose 93 188 H Aspergillus flavus Ab Negative Aspergill fumigatus Ab Negative Aspergillus niger Ab Negative 03/22/18 03/23/18 03/23/18 21:29 03:02 07:48 POC Glucose 101 158 H 153 H Aspergillus flavus Ab Aspergill fumigatus Ab Aspergillus niger Ab 03/23/18 11:42 POC Glucose 74 Aspergillus flavus Ab Aspergill fumigatus Ab Aspergillus niger Ab Microbiology 03/22/18 12:00 Sputum - Expectorated Sputum Gram Stain - Final 03/22/18 12:00 Sputum - Expectorated Sputum Sputum Culture - Preliminary Moderate growth normal respiratory reyna at 24 hours - Imaging ITS Impressions Chest X-Ray 03/12/18 21:28 CONCLUSION: 1. Chronic interstitial prominence with stable left basilar patchy airspace disease. Chest CT 03/13/18 00:00 CONCLUSION: 1. Patchy alveolar pneumonia in the left lower lobe. 2. Chronic bronchiectasis and inflammatory infiltrates of both lungs are otherwise not significantly changed. 3. No significant change upper limits of normal to mildly enlarged mediastinal and hilar lymph nodes area 4. Tiny pericardial effusion. Coronary artery calcification. Assessment and Plan - Assessment (1) Febrile illness Code(s): R50.9 - Fever, unspecified Status: Acute (2) Failure of outpatient treatment Code(s): Z78.9 - Other specified health status Status: Acute (3) Infiltrate of lung present on chest x-ray Code(s): R91.8 - Other nonspecific abnormal finding of lung field Status: Acute (4) Bronchiectasis Code(s): J47.9 - Bronchiectasis, uncomplicated Status: Chronic (5) Asthma Code(s): J45.909 - Unspecified asthma, uncomplicated Status: Chronic - Plan 67-year-old female admitted secondary to fever with pre-existing chronic pneumonia. Known pre-existing history of Pseudomonas infection currently under treatment with cefepime and Cipro as an outpatient. New diagnosis of pulmonary aspergillosis. Chronic Pseudomonas infection Bronchiectasis with Achromobacter Pulmonary aspergillosis Pulmonology following ID following Continue Levaquin Continue Zosyn VANCO AND VORICONAZOLE HAVE BEEN DISCONTINUED Probiotics CONTINUE ON OXYGEN WILL NEED FOLLOW UP WITH DR MAC AFTER DC ALREADY HAS PICC LINE COPD Asthma Contributory to patient's hypoxia Patient has been on 2 L nasal cannula at home Continue baseline inhalers Pulmonology following ON PO PREDNISONE Hypertension Continue baseline treatment Follow blood pressures Adjust treatments as needed Diabetes mellitus type 2 Follow blood sugars Insulin sliding scale Diabetic diet Hypothyroidism Continue baseline treatments Follow-up as an outpatient ON LEVOTHYROXINE DVT prophylaxis Heparin HAS NOT BEEN CLEARED BY ID OR PULMONARY YET NEW CULTURES ARE GROWING ACINETOBACTER JUD AND ACHROMOBACTER XYLOSOX Code Status: FULL CODE Discussed Condition With: RN AND PT AND CM Discharge Planning: PENDING PULMONARY AND ID CLEARANCE
[2018-03-24] MEDS: Piperacil/Tazo 4.5 GM Premix 4.5 GM/100 ML BAG IV.SIG SCH ×4 (02:53→20:50)
[2018-03-24] MEDS: Insulin NovoLOG Aspart Correctional Sugar Inj SQ SCH ×5 (02:56→20:52)
[2018-03-24] MEDS: Heparin - SQ 10,000 UNITS/ML Vial SQ SCH ×3 (05:28→18:00)
[2018-03-24] MEDS: Levothyroxine 100 MCG Tablet PO SCH (05:28)
[2018-03-24 07:36] LABS: Baso % (Auto) 0.1 % (0.0-2.0); Eos % (Auto) 0.1 % (0.0-4.0); Hematocrit 30.4 % (35.0-46.0); Hemoglobin 9.8 gm/dL (11.6-15.3); Lymph % (Auto) 5.8 % (9.0-44.0); Mean Corpuscular HGB Conc 32.2 % (32.0-36.0); Mean Corpuscular Volume 86.9 fL (80.0-100.0); Mean Platelet Volume 7.1 fL (7.0-11.0); Mono # (Auto) 0.9 th/mm3 (0.0-0.9); Mono % (Auto) 5.1 % (0.0-8.0); Neut # (Auto) 15.8 th/mm3 (1.8-7.7); Neut % (Auto) 88.9 % (16.0-70.0); Platelet Count 493 th/mm3 (150-450); Red Cell Distribution Width 15.8 % (11.6-17.2); White Blood Count 17.8 th/mm3 (4.0-11.0)
[2018-03-24 08:00] LABS: Albumin 2.6 g/dL (3.4-5.0); Anion Gap 9 meq/L (5-15); Aspartate Aminotransferase 11 U/L (15-37); Blood Urea Nitrogen 17 mg/dL (7-18); Calcium 8.4 mg/dL (8.5-10.1); Chloride 103 meq/L (98-107); Glomerular Filtration Rate Greater Than 89 mL/min (>89); Glucose,Random 131 mg/dL (74-106); Magnesium 2.5 mg/dL (1.5-2.5); Potassium 4.1 meq/L (3.5-5.1); Sodium 137 meq/L (136-145)
[2018-03-24 08:01] LABS: Alanine Aminotransferase 55 U/L (10-53); Phosphorus 3.2 mg/dL (2.5-4.9)
[2018-03-24 08:04] LABS: Alkaline Phosphatase 143 U/L (45-117)
[2018-03-24 08:39] LABS: Platelet Morphology Normal (Normal)
[2018-03-24] MEDS: Senna/Docusate Sodium 8.6/50 MG Tablet PO SCH ×2 (09:13→20:51)
[2018-03-24] MEDS: Lactobacillus Acidophilus/L. Spores Tablet PO SCH ×3 (09:13→17:58)
[2018-03-24] MEDS: Nystatin Liq 500,000 UNIT/5 ML UDC SWISH-SWAL SCH ×4 (09:13→20:51)
[2018-03-24] MEDS: amLODIPine 5 MG Tablet PO SCH (09:14)
[2018-03-24] MEDS: predniSONE 10 MG Tablet PO SCH ×2 (09:14→20:49)
--- NOTE | 2018-03-24 12:27 | P.PNID ---
Subjective Remarks: Patient feels okay. Notes less sputum production. No fever. On oxygen via nasal cannula. Sputum culture last sent on 03/16 has Acinetobacter. Previous sputum culture had Achromobacter. Repeat sputum has gram neg raghav. Past Medical History: PAST MEDICAL HISTORY: COPD, bronchiectasis, asthma, diabetes mellitus, hypertension, hypothyroidism, osteopenia, Pseudomonas aeruginosa pulmonary infection, bilateral knee replacements, tubal ligation. Allergies/Adverse Reactions: Allergies No Known Allergies Allergy (Verified 03/12/18 21:02) Objective Vital Signs 03/23/18 15:54 03/23/18 16:00 03/23/18 19:25 Temperature 97.4 F L Pulse Rate 75 91 H 91 H Respiratory Rate 18 17 17 Blood Pressure 113/68 Pulse Oximetry 97 03/23/18 20:00 03/24/18 00:00 03/24/18 00:15 Temperature 97.5 F L 98.2 F Pulse Rate 83 72 86 Respiratory Rate 15 16 18 Blood Pressure 109/69 104/62 Pulse Oximetry 99 97 03/24/18 04:01 03/24/18 08:00 03/24/18 08:54 Temperature 97.8 F Pulse Rate 86 74 74 Respiratory Rate 22 18 20 Blood Pressure 121/70 Pulse Oximetry 96 94 L Intake & Output 03/23/18 03/24/18 03/24/18 18:59 06:59 18:59 Intake Total 1150 / 1150 440 / 440 150 / 150 Balance 1150 / 1150 440 / 440 150 / 150 Weight 67.7 kg Intake: IV 350 / 350 200 / 200 150 / 150 Levaquin 750 mg Premix Inj 150 150 / 150 150 / 150 ML @ 100 mls/hr IV.SIG Q24H [facility] Rx#:[id number] Zosyn 4.5 GM Premix 4.5 gm In 200 / 200 200 / 200 100 ml @ 200 mls/hr IV.SIG Q6H [facility] Rx#:[id number] Oral 800 / 800 240 / 240 Other: # Voids 6 3 Date of Last Bowel Movement 03/22/18 03/22/18 12:00 Sputum - Expectorated Sputum Gram Stain - Final 03/22/18 12:00 Sputum - Expectorated Sputum Sputum Culture - Preliminary gram negative rods 03/16/18 17:28 Sputum - Expectorated Sputum Gram Stain - Final 03/16/18 17:28 Sputum - Expectorated Sputum Sputum Culture - Final Acinetobacter sloan cplx/haemol Lab - Hematology Results 03/24/18 06:42 WBC 17.8 H RBC 3.50 L Hgb 9.8 L Hct 30.4 L MCV 86.9 MCH 28.0 MCHC 32.2 RDW 15.8 Plt Count 493 H MPV 7.1 Prelim Diff (Auto) Slide review pending Neut % (Auto) 88.9 H Lymph % (Auto) 5.8 L [place] % (Auto) 5.1 Eos % (Auto) 0.1 Baso % (Auto) 0.1 Neut # (Auto) 15.8 H Lymph # (Auto) 1.0 [place] # (Auto) 0.9 Eos # (Auto) 0.0 Baso # (Auto) 0.0 WBC Differential . Diff Scan Auto diff confirmed Differential Comment . Platelet Estimate High H Platelet Morphology Normal Lab - Chemistry Results 03/22/18 03/22/18 03/22/18 12:34 18:07 21:29 Sodium Potassium Chloride Carbon Dioxide Anion Gap BUN Creatinine Estimated GFR POC Glucose 93 188 H 101 Random Glucose Calcium Phosphorus Magnesium Total Bilirubin AST ALT Alkaline Phosphatase C-Reactive Protein Total Protein Albumin 03/23/18 03/23/18 03/23/18 03:02 07:48 11:42 Sodium Potassium Chloride Carbon Dioxide Anion Gap BUN Creatinine Estimated GFR POC Glucose 158 H 153 H 74 Random Glucose Calcium Phosphorus Magnesium Total Bilirubin AST ALT Alkaline Phosphatase C-Reactive Protein Total Protein Albumin 03/23/18 03/23/18 03/23/18 15:37 16:36 21:04 Sodium Potassium Chloride Carbon Dioxide Anion Gap BUN Creatinine Estimated GFR POC Glucose 187 H 109 Random Glucose Calcium Phosphorus Magnesium Total Bilirubin AST ALT Alkaline Phosphatase C-Reactive Protein 0.78 H Total Protein Albumin 03/24/18 03/24/18 03/24/18 02:56 06:42 07:38 Sodium 137 Potassium 4.1 Chloride 103 Carbon Dioxide 25.0 Anion Gap 9 BUN 17 Creatinine 0.62 Estimated GFR Greater than 89 POC Glucose 160 H 115 H Random Glucose 131 H Calcium 8.4 L Phosphorus 3.2 Magnesium 2.5 Total Bilirubin 0.4 AST 11 L ALT 55 H Alkaline Phosphatase 143 H C-Reactive Protein Total Protein 6.0 L Albumin 2.6 L Imaging: ITS Impressions Chest X-Ray 03/12/18 21:28 CONCLUSION: 1. Chronic interstitial prominence with stable left basilar patchy airspace disease. Chest CT 03/13/18 00:00 CONCLUSION: 1. Patchy alveolar pneumonia in the left lower lobe. 2. Chronic bronchiectasis and inflammatory infiltrates of both lungs are otherwise not significantly changed. 3. No significant change upper limits of normal to mildly enlarged mediastinal and hilar lymph nodes area 4. Tiny pericardial effusion. Coronary artery calcification. Physical Exam: PHYSICAL EXAMINATION: GENERAL: No acute distress. Awake and alert. HEENT: Extraocular movements grossly intact, pupils reactive to light. No icterus. Oropharynx: Moist mucosa NECK: No adenopathy or swelling. LUNGS: Bilateral rhonchi. Mild wheezing. HEART: Regular rate and rhythm without murmurs, rubs or gallops. ABDOMEN: Bowel sounds present. Soft. EXTREMITIES: No clubbing, cyanosis or edema. Decreased muscle bulk. SKIN: No rash. NEUROLOGIC: calm and cooperative. Assessment and Plan - Plan IMPRESSION: 1. Pneumonia due to Achromobacter. Resistant to cefepime. second culture has Acinetobacter. Sputum culture pending. 2. Aspergillus in 1 sputum culture initially not recovered and repeat cultures. Probably contaminant. RECOMMENDATIONS: Continue piperacillin/tazobactam and Levaquin. I will follow the sensitivities to order the IV antibiotics tomorrow for discharge. If it is sensitive to Zosyn she will be discharged on Zosyn. IV Antibiotic x 10 days. Levaquin PO x 2 weeks. She should follow up with Dr. Jackson in 1 week.
--- NOTE | 2018-03-24 12:29 | P.DCO ---
Post Hospital Infusion Therapy - Infusion Therapy Location of Infusion Therapy: Home Health Care IV Infusion Order - Patient Information Patient Weight: 67.7 kg - Administer Medication Cefepime Dose: 2 grams IV Directions: q 12 hours Stop Treatment: 04/06/18 - Additional Information Venous Access: PICC Line (Follow up with DR Jackson in 1 week. ) Additional Instructions: [x] Peripheral flush and dressing changes per protocol [x] Implanted port and central personal lines underwriter: * Implanted port: 10 ml Normal Saline followed by 5 ml Heparin 100 units/ml Heparin flush after each use and monthly to maintain. [] May leave port accessed during therapy. [] May leave peripheral site accessed for duration of therapy. [x] If patient has SOB or respiratory distress, check oxygen saturation. If less than 90% or clinical signs of respiratory distress, administer oxygen at 2 L/min. via nasal cannula and notify physician. [x] Anaphylaxis/Reaction orders: * Stop infusion. * Keep IV line open with saline flush. * Notify physician. * Monitor vital signs every 15 minutes until symptoms resolve. * Check Oxygen saturation; Oxygen at 2 L/min. via nasal cannula if less than 90% or clinical signs of respiratory distress. * Administer diphenhydramine (Benadryl) 25 mg IV STAT, (unless patient has received as pre-med). May repeat once, if necessary. * Solu-Cortef 250 mg IVP over 30-60 seconds, use 100 mg vials for each dissolution. * Epinephrine (1mg/1 ml) 0.3 mg subcutaneously or IVP now with any signs of respiratory distress. * Check with physician for new additional pre-med orders if patient is re- challenged or re-treated. [x] May remove PICC line when treatment complete, after confirming with Physician. [x] If the patient is admitted to the hospital, the ED, or transferred via [facility] , complete transfer form including medication reconciliation order sheet. Weekly Labs: BMP, CBC w/diff Additional Information: follow up with Dr Jackson in 1 week. - Case Management Consult Case Management Consult-IVF: Yes - Patient Information Allergies No Known Allergies Allergy (Verified 03/12/18 21:02)
--- NOTE | 2018-03-24 17:06 | P.PNIM ---
Subjective Interval history: Patient reports no active shortness of breath. Wants to go home. No fevers or chills. Physical Exam Vital signs: Last Vital Signs Temp 97.6 F 03/24/18 16:00 Pulse 93 H 03/24/18 16:00 Resp 18 03/24/18 16:00 BP 132/72 03/24/18 16:00 Pulse Ox 95 03/24/18 16:00 Intake & Output 03/22/18 03/23/18 03/24/18 03/25/18 06:59 06:59 06:59 06:59 Intake Total 1989 640 / 640 1590 / 1590 350 / 350 Balance 1989 640 / 640 1590 / 1590 350 / 350 Weight 68.4 kg 67.6 kg 67.7 kg 67.7 kg Narrative: General well-nourished well-developed white female no acute distress Cardiovascular S1-S2 audible, RRR, no murmurs rubs or gallops Respiratory rhonchi bilaterally Abdomen soft, nontender, nondistended, normal bowel sounds Extremities no edema 2+ distal pulses in bilateral upper and lower extremities Neuro alert and oriented x3 moves all 4 extremities Results Labs CBC & Chem 7: 03/24/18 06:42 03/24/18 06:42 Labs: Microbiology 03/22/18 12:00 Sputum - Expectorated Sputum Gram Stain - Final 03/22/18 12:00 Sputum - Expectorated Sputum Sputum Culture - Preliminary gram negative rods Assessment and Plan Plan 67-year-old female admitted secondary to fever with pre-existing chronic pneumonia. Known pre-existing history of Pseudomonas infection currently under treatment with cefepime and Cipro as an outpatient. New diagnosis of pulmonary aspergillosis. Chronic Pseudomonas infection Bronchiectasis with Achromobacter Pneumonia due to Achromobacter with second culture with Acinetobacter-previous resistant to cefepime , currently on Zosyn Infectious disease feels Aspergillus in one sputum culture initially not recovered and repeat cultures probably contaminant. Appreciate Dr. Izquierdo, pulmonology following ID Dr. Mohamud to make final recommendations and outpatient IV antibiotics, likely will need 10 days of IV Zosyn Continue Levaquin Continue Zosyn Patient has a current PICC line, continue oxygen as needed. 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 -Currently not in acute exacerbation Currently on prednisone 30 mg p.o. twice daily per pulmonary Continue baseline inhalers Hypertension, chronic essential Continue baseline treatment, Ajit Collazo Follow blood pressures Adjust treatments as needed Diabetes mellitus type 2, controlled, [id number], no active complications Follow blood sugars, overall controlled. Insulin sliding scale Diabetic diet Hypothyroidism Continue baseline treatments Follow-up as an outpatient Continue Synthroid. DVT prophylaxis Heparin Discharge Planning: Possible discharge when final cultures and sensitivities available for ID recommendations for home health care antibiotic infusion Progress Note: Quality VTE Deep Vein Thrombosis/Pulmonary Embolism Present on Admission: No
[2018-03-25] MEDS: Piperacil/Tazo 4.5 GM Premix 4.5 GM/100 ML BAG IV.SIG SCH ×4 (02:24→20:29)
[2018-03-25] MEDS: Insulin NovoLOG Aspart Correctional Sugar Inj SQ SCH ×5 (02:25→20:32)
[2018-03-25] MEDS: Levothyroxine 100 MCG Tablet PO SCH (05:55)
[2018-03-25] MEDS: Heparin - SQ 10,000 UNITS/ML Vial SQ SCH ×2 (05:56→17:25)
[2018-03-25] MEDS: Nystatin Liq 500,000 UNIT/5 ML UDC SWISH-SWAL SCH ×4 (08:00→20:30)
[2018-03-25] MEDS: predniSONE 10 MG Tablet PO SCH ×2 (08:00→20:28)
[2018-03-25] MEDS: Lactobacillus Acidophilus/L. Spores Tablet PO SCH ×3 (08:00→17:25)
[2018-03-25] MEDS: Senna/Docusate Sodium 8.6/50 MG Tablet PO SCH ×2 (08:00→20:29)
[2018-03-25] MEDS: amLODIPine 5 MG Tablet PO SCH (08:00)
--- NOTE | 2018-03-25 12:09 | P.PNIM ---
Subjective Interval history: Reports that she is not short of breath. No fevers or chills. Feeling better. Wants to go home soon. Physical Exam Vital signs: Last Vital Signs Temp 97.8 F 03/25/18 08:00 Pulse 71 03/25/18 08:24 Resp 16 03/25/18 08:24 BP 126/59 L 03/25/18 08:00 Pulse Ox 97 03/25/18 08:24 Intake & Output 03/23/18 03/24/18 03/25/18 03/26/18 06:59 06:59 06:59 06:59 Intake Total 640 / 640 1590 / 1590 2740 / 2740 100 / 100 Balance 640 / 640 1590 / 1590 2740 / 2740 100 / 100 Weight 67.6 kg 67.7 kg 66.7 kg Narrative: General well-nourished well-developed white female no acute distress Cardiovascular S1-S2 audible, RRR, no murmurs rubs or gallops Respiratory few rhonchi bilaterally Abdomen soft, nontender, nondistended, normal bowel sounds Extremities no edema, right PICC line in place Neuro alert and oriented x3 moves all 4 extremities Results Labs CBC & Chem 7: 03/24/18 06:42 03/24/18 06:42 Labs: Microbiology 03/22/18 12:00 Sputum - Expectorated Sputum Gram Stain - Final 03/22/18 12:00 Sputum - Expectorated Sputum Sputum Culture - Preliminary gram negative rods Assessment and Plan (1) Achromobacter pneumonia: Code(s): J15.6 - Pneumonia due to other Gram-negative bacteria Status: Acute (2) COPD with asthma: Code(s): J44.9 - Chronic obstructive pulmonary disease, unspecified Status: Chronic Plan 67-year-old female admitted secondary to fever with pre-existing chronic pneumonia. Known pre-existing history of Pseudomonas infection currently under treatment with cefepime and Cipro as an outpatient. Chronic Pseudomonas infection Bronchiectasis with Achromobacter Pneumonia due to Achromobacter with second culture with Acinetobacter-previous resistant to cefepime , currently on Zosyn Infectious disease feels Aspergillus in one sputum culture initially not recovered and repeat cultures probably contaminant. Appreciate Dr. Izquierdo, pulmonology following ID Dr. Mohamud to make final recommendations and outpatient IV antibiotics, likely will need 10 days of IV Zosyn Continue Levaquin for 2 more weeks Continue Zosyn Patient has a current PICC line, continue oxygen as needed. Await repeat sputum cultures from March 22 to make final recommendations on antibiotics upon sensitivities. 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 -Currently not in acute exacerbation Currently on prednisone 30 mg p.o. twice daily per pulmonary Continue baseline inhalers Hypertension, chronic essential Continue baseline treatment, [place] Norvasc Follow blood pressures Adjust treatments as needed Diabetes mellitus type 2, controlled, [id number]-[id number], no active complications Follow blood sugars, overall controlled. Insulin sliding scale Diabetic diet Hypothyroidism Continue baseline treatments Follow-up as an outpatient Continue Synthroid. DVT prophylaxis Heparin Discharge Planning: Possible discharge when final cultures and sensitivities available for ID recommendations for home health care antibiotic infusion Progress Note: Quality VTE Deep Vein Thrombosis/Pulmonary Embolism Present on Admission: No
--- NOTE | 2018-03-25 12:18 | P.DCO ---
Diagnosis (1) Achromobacter pneumonia: Status: Acute (2) COPD with asthma: Status: Chronic Home Health Nursing Order: IV medication administration Case Management Consult Case Management Consult-Home Health: Yes I have seen patient Minal Hernandez on 03/25/18. My clinical findings support the need for the requested home health care services because: Infection with risk of complications I certify that my clinical findings support that this patient is homebound because: Hx COPD - exertion dyspnea/weakness
[2018-03-26] MEDS: Piperacil/Tazo 4.5 GM Premix 4.5 GM/100 ML BAG IV.SIG SCH ×3 (02:25→13:03)
[2018-03-26] MEDS: Insulin NovoLOG Aspart Correctional Sugar Inj SQ SCH ×3 (02:26→11:03)
[2018-03-26] MEDS: Levothyroxine 100 MCG Tablet PO SCH (05:13)
[2018-03-26] MEDS: Heparin - SQ 10,000 UNITS/ML Vial SQ SCH (05:14)
[2018-03-26] MEDS: Nystatin Liq 500,000 UNIT/5 ML UDC SWISH-SWAL SCH ×2 (08:29→12:44)
[2018-03-26] MEDS: predniSONE 10 MG Tablet PO SCH (08:31)
[2018-03-26] MEDS: Senna/Docusate Sodium 8.6/50 MG Tablet PO SCH (08:31)
[2018-03-26] MEDS: amLODIPine 5 MG Tablet PO SCH (08:31)
[2018-03-26] MEDS: Lactobacillus Acidophilus/L. Spores Tablet PO SCH ×2 (08:32→12:46)
[2018-03-26 12:07] VITALS: BP 109/67; TEMP 98.3; O2SAT 96
--- NOTE | 2018-03-26 12:58 | P.DS ---
DS: Providers Date of admission: 03/12/18 23:14 Primary care physician: No Primary Care Physician Consults: 03/13/18 04:47 Consult to Infectious Diseases Routine Consulting Provider: Tutu Mohamud Reason for Consultation: Patient with known history of Pseudomonas, sputum culture now growing achromobacter and mold Notified:: Service Spoke with:: NEIL Date Notified:: 03/13/18 Time Notified:: 05:13 Ordering Provider: REMEDIOS 03/13/18 07:31 Consult to Pulmonology Routine Consulting Provider: Merritt Salcido Patient known to:: Yury Izquierdo Reason for Consultation: fungal lung infection Notified:: Service Spoke with:: Tarah Date Notified:: 03/13/18 Time Notified:: 07:36 Ordering Provider: MINDY 03/25/18 09:58 HUB Only Consult Order Routine Consulting Provider: Nhan Bob Brief History from admission: 67-year-old female with a past medical history significant for known lung Pseudomonas infection treated as an outpatient with IV cefepime and Cipro, COPD , diabetes mellitus, hypertension and hypothyroidism presents to the emergency department for the evaluation of fevers. The patient was recently hospitalized for shortness of breath and fevers and was evaluated by pulmonology. She was discharged to home to continue with cefepime and ciprofloxacin. She reports her fevers returned today with a T-max of 104 orally at home. She states her shortness of breath is at baseline and is mildly improved with nebulizer treatments. The patient denies any chest pain. No abdominal pain. No nausea/ vomiting/diarrhea. No focal neurologic deficits. DS: Diagnosis Discharge Diagnosis (1) Achromobacter pneumonia: Status: Acute Diagnosis: Principal (2) COPD with asthma: Status: Chronic Diagnosis: Secondary (3) Failure of outpatient treatment: Status: Acute Diagnosis: Secondary (4) Infection due to acinetobacter baumannii: Status: Acute Diagnosis: Principal DS: Summary 67 year-old female with a history of COPD with asthma admitted secondary to fever with failed outpatient treatment of chronic pneumonia. Patient was a known to have pre-existing history of Pseudomonas infection and was under previous treatment for Cipro and cefepime IV. She was placed on Zosyn and Levaquin. She was seen by her edge beader Dr. Izquierdo who recommended prednisone and continue baseline inhalers. She does have home oxygen in which she uses as needed. Dr. Mohamud infectious disease ordered 3 different sputum cultures. Of note he does feel the Aspergillus in one sputum culture was a contaminant. One culture showed Achromobacter with second culture with Acinetobacter which was sensitive to cefepime. Repeat sputum culture on March 22 showed it was still sensitive to cefepime with final ID to be sent out to lab per metallurgy laboratory technician as it was a combination of possible Acinetobacter and Pseudomonas. At this time, Dr. Mohamud has recommended to continue with IV cefepime 2g IV Q 12 through March 31 and p.o. Levaquin for 2 more weeks and follow-up with her infectious disease physician Dr. Punete. Please note prescription for prednisone will be written by Dr. Arden Izquierdo. Time Spent with Patient Total time spent providing and/or coordinating discharge services: Less than 30 minutes Quality: VTE Deep Vein Thrombosis/Pulmonary Embolism Present on Admission: No Exam Narrative Exam Narrative: GENERAL: This is a well-nourished, well-developed patient, in no apparent distress sitting up in chair. CARDIOVASCULAR: Regular rate and rhythm RESPIRATORY: Few bilateral rhonchi, good respiratory effort MUSCULOSKELETAL: Extremities without clubbing, cyanosis, or edema. Right PICC line in place with dressings in place NEURO: Alert & Oriented x4 to person, place, time, situation. Moves all ext x4 Results Labs on day of discharge: Labs from last 24 hours 03/26/18 03/26/18 03/25/18 11:01 07:19 20:32 POC Glucose 81 104 122 H 03/25/18 16:37 POC Glucose 90 Preliminary micro results at discharge 03/22/18 12:00 Sputum Culture - Preliminary Sputum - Expectorated Sputum gram negative rods Impressions ITS Impressions Chest X-Ray 03/12/18 21:28 CONCLUSION: 1. Chronic interstitial prominence with stable left basilar patchy airspace disease. Chest CT 03/13/18 00:00 CONCLUSION: 1. Patchy alveolar pneumonia in the left lower lobe. 2. Chronic bronchiectasis and inflammatory infiltrates of both lungs are otherwise not significantly changed. 3. No significant change upper limits of normal to mildly enlarged mediastinal and hilar lymph nodes area 4. Tiny pericardial effusion. Coronary artery calcification. Discharge Plan Discharge Disposition Patient Disposition: W/Home Health Service Discharge Condition Condition: Good Discharge Order Discharge Orders: Discharge Order (Routine); Ordered 03/26/18 Ordered By: Kenzie Dias Discharge Details Anticipated Discharge Date: 03/26/18 Physicians Team ED Provider: Carlton Mendez Primary Care Provider: Primary Sarah Woods Attending Provider: Kenzie Disa Other Providers: Tutu Mohamud ; Merritt Salcido ; Kareem [facility] Rxs /Orders / Referrals /Forms Prescriptions: New levofloxacin [Levaquin] 750 mg tablet 750 mg PO DAILY 14 Days Qty: 14 RF: 0 Continue ergocalciferol (vitamin D2) [Vitamin D2] 50,000 unit Capsule 50,000 unit PO QWEEK RF: 0 cefepime 2 gram Recon Soln 2 g IV Q12H 11 Days Qty: 0 RF: 0 losartan 50 mg Tablet 50 mg PO DAILY RF: 0 metformin 500 mg Tablet 500 mg PO BID RF: 0 ipratropium-albuterol 0.5 mg-3 mg(2.5 mg base)/3 mL Solution For Nebulization 3 ml INHALATION Q5H RF: 0 alendronate [Fosamax] 70 mg Tablet 70 mg PO QWEEK RF: 0 amlodipine 5 mg Tablet 5 mg PO DAILY RF: 0 aspirin [Aspir-81] 81 mg Tablet,Delayed Release (Dr/Ec) 81 mg PO DAILY RF: 0 levothyroxine 100 mcg Capsule 100 mcg PO DAILY RF: 0 ipratropium-albuterol [Combivent Respimat] 20-100 mcg/actuation Mist 1 puff INHALATION Q6H RF: 0 weyeiohjfqt-arilaopfw-wmrqnbhe [Trelegy Ellipta] 100-62.5-25 mcg Blister With Device 1 inh INHALATION DAILY RF: 0 Discontinued ciprofloxacin HCl [Cipro] 500 mg Tablet 500 mg PO BID RF: 0 Referrals: Primary Care Sarah Alberto [Primary Care Provider] - See Instructions ([facility] [phone] [place] [address] *[facility] offers same day APPT. Call. the morning you would like to be seen Office opens at 8:00am ) Payal Jackson MD [Physician] - 04/28/18 11:30 am (Follow up in 1 week ) Yury Izquierdo MD [Physician] - See Instructions ( Please call the physician's office to book the appointment to be seen within [2 to 3 weeks]. PLEASE CALL THURSDAY TO SCHEDULE FOLLOW UP APPOINTMENT) Discharge Instructions Patient Printed Instructions: Prednisone (By mouth), Levofloxacin (By mouth), Peripherally Inserted Central Catheters and Midline Catheters (DC) Post Discharge Care Plan Care Plan Goals: Discharge Care Plan Goals for Pneumonia You have been diagnosed with pneumonia. This is a serious lung infection. Most cases of pneumonia are caused by bacteria. Pneumonia most often occurs in older adults, young children, and people with chronic health problems. Directions to Meet your Goals: 1. Home care: * Take your medicine exactly as directed. Dont skip doses. Continue taking your antibiotics as until they are all gone, even if you start to feel better. This will prevent the pneumonia from coming back. * Drink at least 8 glasses of water daily, unless directed otherwise. This helps to loosen and thin secretions so that you can cough them up. * Use a cool-mist humidifier in your bedroom. Be sure to clean the humidifier daily. * Dont use medicines to suppress your cough unless your cough is dry, painful, or interferes with your sleep. Coughing up mucus is normal. You may use an expectorant if your doctor says its okay. * You can use warm compresses or a heating pad on the lowest setting to relieve chest discomfort. Use several times a day for 15-20 minutes at a time. To prevent injury to your skin, set the temperature to warm, not hot. Dont put the compress or pad directly on your skin. Make certain it has a cover or wrap it in a towel. This is to prevent skin rosales. * Get plenty of rest until your fever, shortness of breath, and chest pain go away. * Plan to get a flu shot every year. The flu is a common cause of pneumonia. Getting a flu shot every year can help prevent both the flu and pneumonia. 2. Getting the pneumococcal vaccine: * Talk with your doctor about getting the pneumococcal vaccine. Pneumococcal pneumonia is caused by bacteria that spread from person to person. It can cause minor problems, such as ear infections. But it can also turn into life- threatening illnesses of the lungs (pneumonia), the covering of the brain and spinal cord (meningitis), and the blood (bacteremia). * Make sure to ask your doctor if you should have the vaccine. Children under 2 years of age, adults over age 65, people with certain health conditions, and smokers are at the highest risk of pneumococcal disease. This vaccine can help prevent pneumococcal disease in both adults and children. 3. Follow-up care: Do Not miss your follow-up appointment. Keep up with all your appointments and yearly check ups 4. When to call your doctor: Call your doctor immediately if you have any of the following: Fever of 100.4F (38C) or higher, or as directed by your healthcare provider Mucus from the lungs (sputum) thats yellow, green, bloody, or smells bad Vomiting Any symptoms that get worse 5. Call 911: Call 911 right away if you have any of the following: Chest pain Trouble breathing Blue lips or fingernails Status ED Status: Left Department
[2018-03-26 15:43] VITALS: PULSE 76; RESP 16
--- NOTE | 2018-03-26 23:36 | MD ---
cc: Aramis Izquierdo MD DATE OF DISCHARGE: 03/26/2018 HOSPITAL COURSE: Ms. Hernandez is a 67-year-old white female well known to me with chronic asthma and bronchiectasis who has grown Pseudomonas repeatedly from her sputum. Over the last several months, we have had a lot of difficulty controlling the asthma despite repeated courses of steroids and multiple antibiotics for the Pseudomonas. She was seen by Dr. Payal Jackson about a month ago and she recommended outpatient cefepime infusions and Levaquin. Initially, the patient seemed to be getting better, but near the end of that course of therapy, she developed fevers as high as 102, increased sputum, wheezing, and asthma exacerbation persistent despite outpatient management. She presented and was admitted to the hospital on 03/12/2018. CT at that time revealed a new left lower lobe infiltrate consistent with pneumonia along with her chronic changes of bronchiectasis, which were really unchanged from previous. She was seen in consultation by Dr. Mohamud. We discussed the case on several occasions and multiple specimens for cultures were obtained from the sputum and the blood. Blood cultures were always negative. Influenza antigens were negative. An initial expectorated sputum revealed Achromobacter. Antibiotics were adjusted, but purulent sputum persisted, so that was repeated on 03/16/2018 and she grew Acinetobacter. She was continued on Zosyn and Levaquin. Cefepime was discontinued and on that she did very well clinically. She remained afebrile. White blood cell count fell to 14 and she improved substantially clinically at least from the standpoint of her asthma. Liver functions were elevated on presentation for unclear reasons, but they did subsequently fall to near normal. There is a mild elevation in AST, ALT and alkaline phosphatase. She had Aspergillus precipitins studies during this admission because she apparently grew Aspergillus in an outpatient specimen prior to admission. Those were all negative. HIV was also tested, it was negative. IgE level was normal at 24. Final sputum was just reported today. This was from 03/22/2018 and she has Pseudomonas with another organism of unclear etiology that is being sent out. Our lab thought it might be Acinetobacter. The Pseudomonas is still sensitive to cefepime and Levaquin and Dr. Mohamud recommended that she continue to receive cefepime and Levaquin for an additional 10 days. It is then planned that she will follow up with Dr. Payal Jackson for outpatient infectious disease therapy to be continued. In addition to these antibiotics, she will continue her Trelegy, her nebulizer with albuterol and Atrovent at least once, but up to 2-3 times a day, a tapering course of prednisone over 2 weeks. We have also had extensive conversations about her environment during this admission with both she and her . 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 She has had allergy evaluation prior to this and does have multiple allergies and that is something that will have to be pursued again as an outpatient now that things are more stable. The patient understands that if she were to relapse or feel worse, she is to come back to the hospital. Otherwise, she is scheduling an appointment with Dr. Jackson and I will see her back in the office after the first of the year if she is stable. Further diagnostic and/or therapeutic intervention will depend on her ongoing clinical course. R. MD IMELDA Llamas/gordon , 04:07 PM , 04:17 PM
== END 2018-03-26 16:26 | disposition home health service (06) ==
LOC: NEPE 20:32 → NEDA 23:14 → NEPFCDU 03-13 01:00 → H7ONC 03-16 12:16 → N07 03-19 16:22
PROVIDERS: ADMIT Family Medicine; ATTEND Family Medicine
DX: Z99.81 Dependence on supplemental oxygen; Z79.82 Long term (current) use of aspirin; J15.6 Pneumonia due to other Gram-negative bacteria; J44.0 Chronic obstructive pulmonary disease with (acute) lower respiratory infection; Z77.110 Contact with and (suspected) exposure to air pollution; B96.5 Pseudomonas (aeruginosa) (mallei) (pseudomallei) as the cause of diseases classified elsewhere; J47.0 Bronchiectasis with acute lower respiratory infection; Z16.19 Resistance to other specified beta lactam antibiotics; Z86.718 Personal history of other venous thrombosis and embolism; J44.1 Chronic obstructive pulmonary disease with (acute) exacerbation; Z79.84 Long term (current) use of oral hypoglycemic drugs; E11.9 Type 2 diabetes mellitus without complications; M85.80 Other specified disorders of bone density and structure, unspecified site; I10 Essential (primary) hypertension; E03.9 Hypothyroidism, unspecified; Z96.653 Presence of artificial knee joint, bilateral; R09.02 Hypoxemia